=== PATIENT | female | born 1960 | race Caucasian/White ===

== ENCOUNTER → 2017-07-19 | Outpatient (CLI) | payer BC ==
--- NOTE | 2017-07-19 13:05 | Diagnostic Imaging Report ---
INDICATION: Pneumonia. FINDINGS: The lungs are clear. The heart and vessels normal. There is no effusion or pneumothorax. IMPRESSION: No acute appearing abnormality. Dictated by: Dictated on workstation # [id number]
== END ==
LOC: RAD 12:20
PROVIDERS: ATTEND Family Medicine
DX: J18.9 Pneumonia, unspecified organism (principal)
CPT/HCPCS: 71046

== ENCOUNTER → 2019-01-07 | Outpatient (CLI) | payer BC | LOC: RAD 15:32 | PROVIDERS: ATTEND Family Medicine | DX: Z12.31 Encounter for screening mammogram for malignant neoplasm of breast (principal) | CPT/HCPCS: 77067 ==

== ENCOUNTER 2019-10-28 11:00 | Inpatient (IN) | payer BC ==
[~2019-10-28] VITALS: Ht 157.5 cm; Wt 99.9 kg
[2019-10-28 11:00] VITALS: BP 143/86
[~2019-10-28 11:00] MED LIST: ALPRAZolam 0.25 MG (XANAX) TAB PO PRN; BISACODYL 10 MG SUPP (DULCOLAX) PR PRN; CALCIUM CARBONATE 500 MG (TUMS) TAB.CHEW PO PRN; CIPR500T4 PO; DOCUSATE SODIUM 100 MG (COLACE) CAP PO PRN; FLEET ENEMA ADULT 1 EA BTL PR PRN; LACTULOSE SYRUP 10GM/15ML (ENULOSE) 30ML UDC PO PRN; LOPERAMIDE 2 MG (IMODIUM) TABLET PO PRN; MELATONIN 3 MG TABLET PO PRN; ONDANSETRON 4 MG (ZOFRAN) ORAL DISSOLVE TAB PO PRN; ONDANSETRON 4 MG/2 ML (SDV) Z0FRAN IV PRN; diphenhydrAMINE 25 MG TAB (BENADRYL) PO PRN; guaiFENesin/CODEINE (ROBITUSSIN AC) 10ML UDC PO PRN
--- NOTE | 2019-10-28 11:00 | NUR ---
f pt name] admitted to room 224-1, with an admitting diagnosis of critical illness myopathy, on 10/28/19 from rm 421 via wheelchair, accompanied by staff.YELENA ROLLINS introduced to surroundings, call light, bed controls, phone, TV, temperature control, lights, meal times, smoking policy, visitor policy, side rail policy, bathrooms and showers. Patient Rights given to patient in the handbook.YELENA ROLLINS verbalizes understanding that [facility] is not responsible for the loss or damage to any personal effects or valuables that are kept in the patients posession during their hospitalization. The Patient's Care Plans were discussed with the patient as well as protocols for interdisciplinary Discharge Planning. YELENA ROLLINS verbalizes understanding of Interdisciplinary Patient Education. Patient and/or family were informed about the Rapid Response Team and its purpose. Patient received Patient Rights Booklet, which includes Privacy Act Statement and Data Collection Information Summary.
[2019-10-28] MEDS ORDERED: ACETAMINOPHEN 650 MG SUPP (TYLENOL) PR PRN (11:45)
[2019-10-28] MEDS ORDERED: DIPHENOXYLATE/ATROPINE 2.5MG/0.025MG (LOMOTIL) TAB PO PRN (11:45)
[2019-10-28] MEDS ORDERED: polyethylene glycoL POWDER 17 GM (MIRALAX) PACK PO PRN (11:45)
[2019-10-28] MEDS ORDERED: PATIENT MAY USE OWN MEDS, ALL PO SCH (11:45)
[2019-10-28] MEDS ORDERED: BISACODYL 10 MG SUPP (DULCOLAX) PR PRN (11:45)
[2019-10-28] MEDS ORDERED: diphenhydrAMINE 25 MG TAB (BENADRYL) PO PRN (11:45)
[2019-10-28] MEDS ORDERED: BENZONATATE 100 MG (TESSALON) CAPSULE PO PRN (11:45)
[2019-10-28] MEDS ORDERED: ANTACID SUSP 30 ML UDC (MYLANTA) PO PRN (11:45)
[2019-10-28] MEDS ORDERED: HYDROcodone/APAP 5 MG/325 MG (LORTAB) TAB PO PRN (11:45)
[2019-10-28] MEDS: DOCUSATE SODIUM 100 MG (COLACE) CAP PO SCH ×2 (12:24→22:11)
[2019-10-28] MEDS: polyethylene glycoL POWDER 17 GM (MIRALAX) PACK PO SCH ×2 (12:25→22:11)
[2019-10-28] MEDS: SENNA W/DOCUSATE (SENOKOT S) TABLET PO SCH ×2 (12:25→22:11)
--- NOTE | 2019-10-28 13:05 | PM&R Post Admission Assessment ---
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 Patient was placed on appropriate treatment with Azithromycin and Hydroxychloroquine as recommended by ID who was involved in the case from the [facility] dept. PPE maintained during the entire course. Patient worsened and required more O2 and placed on Vapotherm and biPAP and ultimately required intubation on 10/16/19 performed by anesthesia in an uncomplicated manner. Patient did have an episode of bradycardia which Cardiology was consulted and had no other events. She was treated for secondary bacterial infection PNA and yeast on endotracheal specimen and completed COVID-19 treatment. Patient was extubated in an uncomplicated manner on 10/26/19 and was deemed stable for IRF admittance. Patient is having generalized weakness and very slow to recover. BM are regular and she is able to eat a small amount at her meals without dysphagia but she must pace herself. No skin breakdown reported. Catheter will be removed today and Tely will be DC also since she has not had bradycardia for several days. 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 PM&R Allergy/Meds/Data Review Allergies Coded Allergies: cefotaxime (Verified Allergy, Intermediate, HIVES, 10/14/15) Home Medications No Active Prescriptions or Reported Meds Current Medications Current Medications No home meds Review of Systems Constitutional: see HPI, dizziness, malaise, weakness EENTM: no symptoms reported, mouth pain Respiratory: dyspnea on exertion, short of breath, wheezing Cardiovascular: no symptoms reported Gastrointestinal: no symptoms reported Musculoskeletal: back pain, joint pain, muscle pain, muscle stiffness, muscle cramps Skin: no symptoms reported Psychiatric/Neurological: Anxiety, Depressed, Emotional Problems All Other Systems Reviewed Negative Unless Noted: Yes Physical Exam Physical Exam Vital Signs Capillary Refill : Height, Weight, BMI Height: 5'2.00" Weight: 240lbs. 0.0oz. [id number]; 43.73 BMI Method: General Appearance: No Apparent Distress, WD/WN, Chronically ill, Obese Eyes: Bilateral Eye Normal Inspection, Bilateral Eye PERRL HEENT: PERRL/EOMI, Normal ENT Inspection, Pharynx Normal Neck: Full Range of Motion, Normal Inspection, Non Tender, Supple, Carotid Bruit Respiratory: Chest Non Tender, Lungs Clear, No Accessory Muscle Use, No Respiratory Distress, Decreased Breath Sounds Cardiovascular: Regular Rate, Rhythm, No Edema, No Gallop, No JVD, No Murmur, Normal Peripheral Pulses Gastrointestinal: Normal Bowel Sounds, No Organomegaly, No Pulsatile Mass, Non Tender, Soft Back: Normal Inspection, No CVA Tenderness, No Vertebral Tenderness Extremity: Normal Capillary Refill, Normal Inspection, Normal Range of Motion, Non Tender, No Calf Tenderness, No Pedal Edema Neurologic/Psychiatric: Alert, Oriented x3, No Motor/Sensory Deficits, 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 Norm as Tested, Abnormal Gait, Depressed Affect, Motor Weakness (generalized weakness all extremities 3/5) Skin: Normal Color, Warm/Dry Lymphatic: No Adenopathy PM&R Medical Assessment & Plan REHAB/MEDICAL ASSESSMENT AND PLAN: REHAB IMPAIRMENT GROUP: 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 and VDRF for 10 days ETIOLOGIC DIAGNOSIS: 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 and VDRF for 10 days The comorbidities that impact the patients function and/or functional outcome by: severe VDRF required aggressive care from 10/13/19 and will be monitored closely, depressed affect REHAB PLAN: The patient is being admitted to our comprehensive inpatient rehabilitation facility and can tolerate the intensity of service consisting of at least: 180 minutes of therapy a day, 5 out of 7 days a week Rehab treatment will consist of: PT OT ST will focus on regaining ADL's and stamina and energy conservation in 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 The patient has potential to make improvement and is in need of at least two of the following multidisciplinary therapies including but not limited to physical, occupational, speech, and prosthetics and orthotics. Additionally the patient will need services from respiratory, nutritional services, wound care, psychology, etc. (Customize this to each patient). Given the patients complex condition and risk of further medical complications, rehabilitation services cannot be safely or effectively provided at a lower level of care such as a halfway facility. BARRIERS TO DISCHARGE: Severe myopathy from near fatal viral infection ARDS ESTIMATED LOS: 21 days DISPOSITION: Home RELEVANT CHANGES SINCE PREADMISSION SCREENING: I have compared the patients medical and functional status at the time of the preadmission screening and there are: no changes PROGNOSIS: improved REHABILITATION GOALS: 1. 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 By signing this document, I acknowledge that I have personally performed a full physical examination on this patient within 24 hours of admission to this inpatient rehabilitation facility and have determined the patient to be able to tolerate the above course of treatment at an intensive level for a reasonable period of time. I will be completing a detailed individualized Plan of Care for this patient by day #4 of the patients stay based upon the Preadmission Screen, the Post-Admission Evaluation, and the therapy evaluations. Admission Dx/Comorbidities: (1) Myopathy ICD Codes: G72.9 - Myopathy, unspecified (2) Coronavirus infection Status: Acute ICD Codes: B34.2 - Coronavirus infection, unspecified Copy Copies To 1: REGAN GREGORIO MD Assessment/Plan Assessment and Plan Assess & Plan/Chief Complaint Assessment: Critical illness myopathy Coronavirus s/p treatment and out of isolation s/p VDRF Lovenox for DVT PPx Plan: IRF protocol Monitor labs DC catheter DC JASE Lyons DO Oct 28, 2019 13:05
--- NOTE | 2019-10-28 13:41 | Physical Therapy Evaluation ---
PT Evaluation-General Medical Diagnosis Admission Date Oct 28, 2019 at 11:00 Medical Diagnosis: COVID-19 with hypoxia Onset Date: Oct 06, 2019 Therapy Diagnosis Therapy Diagnosis: impaired mobility, strength, endurance Height/Weight Height (Feet): 5 Height (Inches): 2.00 Weight (Pounds): 240 Weight (Ounces): 0.0 Referral Physician: Gayla Abdalla DO Reason for Referral: Evaluation/Treatment Medical History Additional Medical History obesity Current History ER with fever and myalgia 10/04/19 and (+) Covid 19 10/07/19 (has been hospitalized 10/11/19) extubated 10/26/19. Reviewed History: Yes Social History Home: Multilevel Current Living Status: Spouse Entry Into Home: Stairs With Railing PT Steps Into Home: 2 Prior Prior Level of Function SCALE: Activities may be completed with or without assistive devices. 3-Zotdjtaccs-ziwolzj completes the activity by him/herself with no assistance from a helper. 5-Set-up or Clean-up Assistance-helper sets up or cleans up; patient completes activity. [place] assists only prior to or following the activity. 4-Supervision or Touching Assistance-helper provides verbal cues and/or touching/steadying and/or contact guard assistance as patient completes activity. Assistance may be provided throughout the activity or intermittently. 3-Partial/Moderate Assistance-helper does LESS THAN HALF the effort. [place] lifts, holds or supports trunk or limbs, but provides less than half the effort. 2-Substantial/Maximal Assistance-helper does MORE THAN HALF the effort. [place] lifts or holds trunk or limbs and provides more than half the effort. 6-Noqxiqugx-zzjsjl does ALL the effort. Patient does none of the effort to complete the activity. Or, the assistance of 2 or more helpers is required for the patient to complete the activity. If activity was not attempted, code reason: 7-Patient Refused. 9-Not Applicable-not attempted and the patient did not perform the activity b efore the current illness, exacerbation or injury. 10-Not Attempted due to Environmental Limitations-(lack of equipment, weather restraints, etc.). 88-Not Attempted due to Medical Conditions or Safety Concerns. Bed Mobility: 6 Transfers (B,C,W/C): 6 Gait: 6 Stairs: 6 Indoor Mobility (Ambulation): Independent Stairs: Independent PT Evaluation-Current Subjective Patient in bed pre tx, agrees to PT, has no complaints of pain. Will be co- treating with OT after eval due to poor patient mobility, strength, endurance, risk of falls with activity, knee buckling, the need to coordinate UE and LE during activity. Pt/Family Goals "to get stronger" Objective Patient Orientation: Person, Place, Situation Attachments: Fisher Catheter ROM/Strength ROM Lower Extremities WNL Strength Lower Extremities 3/5 gross BLE except for dorsiflexion which is 1/5 bilaterally. Sensory Hearing: Functional Sensation Right Lower Extremit: Intact Sensation Left Lower Extremity: Intact Transfers Roll Left to Right (QC): 2 Sit to Lying (QC): 2 Lying to Sitting/Side of Bed(Q: 2 Sit to Stand (QC): 3 Chair/Goc-wh-Xupqn Xfer(QC): 3 Toilet Transfer (QC): 3 Car Transfer (QC): 2 Patient performed bed mobility with max assist, supine <-> sit max assist, sit <-> stand mod assist, stand pivot mod assist, car transfer max assist. Patient is able to use arms as well as legs when standing, needs cues for positioning and safety. Gait Does the Patient Walk?: No and Walking Goal IS indicated Mode of Locomotion: Wheelchair Anticipated Mode of Locomotion: Walk Walk 10 feet (QC): 88 Walk 50 ft with 2 Turns(QC): 88 Walk 150 ft (QC): 88 Walking 10ft/uneven surface-QC: 88 Wheelchair Training Does the Pt Use a Wheelchair?: Yes Wheel 50 ft with 2 turns (QC): 1 Wheel 150 ft (QC): 1 Type of Wheelchair: Manual Stairs 1 Step (curb) (QC): 88 4 Steps (QC): 88 12 Steps (QC): 88 Balance Sitting Static: Fair Sitting Dynamic: Fair Standing Static: Poor Standing Dynamic: Poor Picking up an Object (QC): 88 Treatment Enter room, sat patient on side of bed with max assist, transferred to , taken to rehab, transferred to commode, stood and cleaned and sat to rest and then transferred to recliner. Then stood x2 with mod assist and the use of a rolling walker, patient was able to stand for about 20 sec each time, she also had to stand during cleaning. Assessment/Needs Patient has weak UE and LE, impaired mobility and balance and endurance. She needs safety cues and positioning during transfers. Rehab Potential: Fair PT Short Term Goals Short Term Goals Time Frame: Nov 04, 2019 Roll Left & Right: 3 Sit to lyin Lying to sitting on side of be: 3 Sit to stand: 3 Chair/pyp-wn-qansm transfer: 3 Walk 10 feet: 3 PT Halfway Goals [place] Operator Goals PT Halfway Goals Time Frame: November 18, 2019 Roll Left & Right (QC): 4 Sit to Lying (QC): 4 Lying-Sitting on Side/Bed(QC): 4 Sit to Stand (QC): 4 Chair/Rrq-bn-Tnkrh Xfer(QC): 4 Toilet Transfer (QC): 4 Car Transfer (QC): 4 Does the Patient Walk: Yes Walk 10 feet (QC): 4 Walk 50ft with 2 Turns (QC): 4 Walk 150 ft (QC): 88 Walking 10ft on Uneven Surface: 88 1 Step (curb) (QC): 3 4 Steps (QC): 88 12 Steps (QC): 88 Picking up an Object (QC): 88 Wheel 50 feet with 2 turns (QC: 6 Wheel 150 feet: 6 PT Plan Problem List Problem List: Activity Tolerance, Functional Strength, Safety, Balance, Gait, Transfer, Bed Mobility, ROM Treatment/Plan Treatment Plan: Continue Plan of Care Treatment Plan: Bed Mobility, Education, Functional Activity Shalonda, Functional Strength, Group Therapy, Gait, Safety, Therapeutic Exercise, Transfers Treatment Duration: November 18, 2019 Frequency: Modified Program (IRF) Estimated Hrs Per Day: 1 hour per day Patient and/or Family Agrees t: Yes Safety Risks/Education Patient Education: Transfer Techniques, Correct Positioning, Safety Issues Teaching Recipient: Patient Teaching Methods: Demonstration, Discussion Response to Teaching: Reinforcement Needed Discharge Recommendations Plan Patient will perform bed mobility and transfer training, balance and endurance training, functional strengthening, stair training, gait training, and education, to improve functional mobility and independence at home. Therapy Discharge Recommendati: Home & Family Time/GCodes Time In: 1100 Time Out: 1200 Total Billed Treatment Time: 50 Total Billed Treatment 1 visit EVM 10' FA 40' (only charge 2 units) PT eval from [id number], OT eval from [id number], co-treat from [id number]. PT performed bed mobility and transfers, standing, assist with positioning and balance during adl's and going to the bathroom. OT performed ADL's, cleaning, assist with transfers and bed mobility. SHANNON WESTFALL PT Oct 28, 2019 13:41
--- NOTE | 2019-10-28 13:56 | Physical Therapy Daily Note ---
PT Daily Note-Current Subjective Patient in recliner pre tx, agrees to PT, has no complaints of pain. Will be co-treating with OT due to poor patient mobility, strength, endurance, fall risk during activity, the need to coordinate UE and LE during activity. Appearance Patient in bed post tx with nurse call, phone, tray, all needs met. Mental Status Patient Orientation: Person, Place, Situation Transfers SCALE: Activities may be completed with or without assistive devices. 9-Tacxtvvpzh-pmnihjq completes the activity by him/herself with no assistance from a helper. 5-Set-up or Clean-up Assistance-helper sets up or cleans up; patient completes activity. [place] assists only prior to or following the activity. 4-Supervision or Touching Assistance-helper provides verbal cues and/or touching/steadying and/or contact guard assistance as patient completes activity. Assistance may be provided throughout the activity or intermittently. 3-Partial/Moderate Assistance-helper does LESS THAN HALF the effort. [place] lifts, holds or supports trunk or limbs, but provides less than half the effort. 2-Substantial/Maximal Assistance-helper does MORE THAN HALF the effort. [place] lifts or holds trunk or limbs and provides more than half the effort. 5-Vctqqvaik-hynicv does ALL the effort. Patient does none of the effort to complete the activity. Or, the assistance of 2 or more helpers is required for the patient to complete the activity. If activity was not attempted, code reason: 7-Patient Refused. 9-Not Applicable-not attempted and the patient did not perform the activity before the current illness, exacerbation or injury. 10-Not Attempted due to Environmental Limitations-(lack of equipment, weather restraints, etc.). 88-Not Attempted due to Medical Conditions or Safety Concerns. Roll Left & Right (QC): 2 Sit to Lying (QC): 2 Sit to Stand (QC): 3 Chair/Jka-kg-Cfjyo Xfer(QC): 3 Toilet Transfer (QC): 3 Patient performed a stand pivot transfer from recliner to commode, then stood for cleaning and sat back down, transferred from commode to bed using a rolling walker with mod assist and then layed back down in the bed. Treatments transfers, bed mobility, toileting. PT performed bed mobility and transfers and standing during cleaning. OT assisted with transfers and performed toileting and cleaning. 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 Home Goals PT Care Home Goals Time Frame: November 18, 2019 Roll Left & Right (QC): 4 Sit to Lying (QC): 4 Lying-Sitting on Side/Bed(QC): 4 Sit to Stand (QC): 4 Chair/Opa-nz-Ukzxk Xfer(QC): 4 Toilet Transfer (QC): 4 Car Transfer (QC): 4 Does the Patient Walk: Yes Walk 10 feet (QC): 4 Walk 50ft with 2 Turns (QC): 4 Walk 150 ft (QC): 88 Walking 10ft on Uneven Surface: 88 1 Step (curb) (QC): 3 4 Steps (QC): 88 12 Steps (QC): 88 Picking up an Object (QC): 88 Wheel 50 feet with 2 turns (QC: 6 Wheel 150 feet: 6 PT Plan Problem List Problem List: Activity Tolerance, Functional Strength, Safety, Balance, Gait, Transfer, Bed Mobility, ROM Treatment/Plan Treatment Plan: Continue Plan of Care Treatment Plan: Bed Mobility, Education, Functional Activity [place], Functional Strength, Group Therapy, Gait, Safety, Therapeutic Exercise, Transfers Treatment Duration: November 18, 2019 Frequency: Modified Program (IRF) Estimated Hrs Per Day: 1 hour per day Patient and/or Family Agrees t: Yes Safety Risks/Education Patient Education: Transfer Techniques, Correct Positioning, Safety Issues Teaching Recipient: Patient Teaching Methods: Demonstration, Discussion Response to Teaching: Reinforcement Needed Time/GCodes Time In: 1305 Time Out: 1325 Total Billed Treatment Time: 20 Total Billed Treatment 1 visit FA 20' Co-treated with OT for 20 min. SHANNON WESTFALL PT Oct 28, 2019 13:56
--- NOTE | 2019-10-28 14:18 | Occupational Therapy Eval ---
OT Evaluation-General/PLF Medical Diagnosis Admission Date Oct 28, 2019 at 11:00 Medical Diagnosis: COVID-19 with hypoxia Onset Date: Oct 06, 2019 Therapy Diagnosis Therapy Diagnosis: impaired self care skills Height/Weight Height (Feet): 5 Height (Inches): 2.00 Weight (Pounds): 240 Weight (Ounces): 0.0 Referral Physician: Gayla Abdalla DO Medical History Current History Pt COVID +, intubated 10/15, fever resolved 10/22, extubated 10/25 Social History Home: [facility] Current Living Status: Spouse Entry Into Home: Stairs With Railing Steps Into Home: 2 ADL-Prior Level of Function SCALE: Activities may be completed with or without assistive devices. 4-Xfdjsiegxx-fbswlft completes the activity by him/herself with no assistance from a helper. 5-Set-up or Clean-up Assistance-helper sets up or cleans up; patient completes activity. [place] assists only prior to or following the activity. 4-Supervision or Touching Assistance-helper provides verbal cues and/or touching/steadying and/or contact guard assistance as patient completes activity. Assistance may be provided throughout the activity or intermittently. 3-Partial/Moderate Assistance-helper does LESS THAN HALF the effort. [place] lifts, holds or supports trunk or limbs, but provides less than half the effort. 2-Substantial/Maximal Assistance-helper does MORE THAN HALF the effort. [place] lifts or holds trunk or limbs and provides more than half the effort. 9-Efnftvope-wujnru does ALL the effort. Patient does none of the effort to complete the activity. Or, the assistance of 2 or more helpers is required for the patient to complete the activity. If activity was not attempted, code reason: 7-Patient Refused. 9-Not Applicable-not attempted and the patient did not perform the activity before the current illness, exacerbation or injury. 10-Not Attempted due to Environmental Limitations-(lack of equipment, weather restraints, etc.). 88-Not Attempted due to Medical Conditions or Safety Concerns. ADL PLOF Comments Pt reports being independent with self care and mobility prior to admission. 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 Self Care: Independent Functional Cognition: Independent DME/Equipment: Shower, Tub/Shower Drive Self: Yes OT Current Status Subjective Pt in bed, agreeable to therapy. Reports "some discomfort" in legs, but doesn't rate. Mental Status/Objective Patient Orientation: Person Attachments: Fisher Catheter Current Hand Dominance: Right Upper Extremity ROM Impaired bilaterally. Shoulder flexion to ~25 degrees. Elbow ROM to half range. Upper Extremity Coordination decreased bilaterally Upper Extremity Strength Grossly 2/5 Edema: Edema present in bilateral UE ADL-Treatment ADL-Current Co-treat with PT secondary to impaired mobility, strength, and activity tolerance requiring skill of two therapists. Pt supine to sit with max assist. Total assist to don socks. Stand pivot transfer to w/c. Transported to ARU via w/c. Pt participated in stand pivot transfer to [facility]. Pt requires total assist for toileting hygiene. Changed soiled gown with max assist. Pt states she alre michael had a sponge bath this morning. Pt participated in grooming tasks while seated in chair. Pt unable to reach up to wash face. With elbow supported, pt able to hold washcloth in right hand and partially wash face. Oral care completed with max assist. Pt completed sit to stand x2 trials to increase strength for transfers. Cues for UE positioning and safety. Pt fatigues quickly with activity, requires rest breaks throughout treatment. Pt sitting in chair with needs met after session. OT focusing on ADLs, UE management, and safety. PT focusing on transfers, mobility, and balance. Eating (QC): 10 Oral Hygiene (QC): 2 Shower/Bathe Self (QC): 7 (pt states she already completed bathing this morning ) Upper Body Dressing (QC): 2 Lower Body Dressing (QC): 10 On/Off Footwear (QC): 1 Toileting Hygiene (QC): 1 Education OT Patient Education: Rehab process Teaching Recipient: Patient Teaching Methods: Discussion Response to Teaching: Verbalize Understanding OT Short Term Goals Short Term Goals Time Frame: Nov 04, 2019 Oral hygiene: 3 Toileting hygiene: 3 Upper body dressin Lower body dressin OT Usp Goals Usp Goals Time Frame: November 18, 2019 Eating (QC): 6 Oral Hygiene (QC): 6 Toileting Hygiene (QC): 5 Shower/Bathe Self (QC): 4 Upper Body Dressing (QC): 5 Lower Body Dressing (QC): 5 On/Off Footwear (QC): 5 Additional Goals: 1-Demonstrate ADL Tasks, 2-Verbalize Understanding, 3- ImproveStrength/Shalonda 1=Demonstrate adherence to instructed precautions during ADL tasks. 2=Patient will verbalize/demonstrate understanding of assistive devices /modifications for ADL. 3=Patient will improve strength/tolerance for activity to enable patient to perform ADL's. OT Education/Plan Problem List/Assessment Assessment: Decreased Activ Tolerance, Decreased UE Strength, Dependent Transfers, Impaired Coordination, Impaired Funct Balance, Impaired I ADL's, Impaired Self-Care Skills Pt demonstrates impaired mobility, strength, activity tolerance, ADL functioning, and safety. Pt to benefit from skilled OT intervention for ADL training, transfers, strengthening, and home safety education to increase level of independence and allow safe discharge plan. Discharge Recommendations Plan/Recommendations: Continue POC Treatment Plan/Plan of Care Treatment,Training & Education: Yes Patient would benefit from OT for education, treatment and training to promote independence in ADL's, mobility, safety and/or upper extremity function for ADL's. Plan of Care: ADL Retraining, Functional Mobility, Group Exercise/Act as Ind, UE Funct Exercise/Act, UE Neuromus Re-Ed/Coord Treatment Duration: November 18, 2019 Frequency: Modified Program (IRF) Rehab Potential: Fair Time/GCodes Start Time: 11:10 Stop Time: 12:00 Total Time Billed (hr/min): 50 Billed Treatment Time 1 visit, EVH(10minutes), ADLx2(40minutes), OT eval [id number], Co-treat with PT [id number] URIEL REILLY OT Oct 28, 2019 14:18
--- NOTE | 2019-10-28 14:36 | Occupational Ther Daily Note ---
OT Current Status-Daily Note Subjective Pt sitting in chair, requests to use BSC. ADL-Treatment Stand pivot transfer to BSC. Pt requires total assist for toileting hygiene and to don Depends. Pt stood with assist for balance during hygiene and pant hike. Transfer to EOB using FWW, skilled cues for technique and safety. Sit to supine with assist for trunk and LE. Pt resting in bed with needs met after session. Co-treat with PT secondary to impaired mobility, strength, and activity tolerance, requiring skill of two therapists. OT focusing on UE placement and ADLs, PT focusing on transfers and LE management. Therapy Code Descriptions/Definitions Functional [place] Measure: 0=Not Assessed/NA 4=Minimal Assistance 1=Total Assistance 5=Supervision or Setup 2=Maximal Assistance 6=Modified [place] 3=Moderate Assistance 7=Complete IndependenceSCALE: Activities may be completed with or without assistive devices. 4-Bywyxyyfms-fxqlpsd completes the activity by him/herself with no assistance from a helper. 5-Set-up or Clean-up Assistance-helper sets up or cleans up; patient completes activity. [place] assists only prior to or following the activity. 4-Supervision or Touching Assistance-helper provides verbal cues and/or touching/steadying and/or contact guard assistance as patient completes activity. Assistance may be provided throughout the activity or intermittently. 3-Partial/Moderate Assistance-helper does LESS THAN HALF the effort. [place] lifts, holds or supports trunk or limbs, but provides less than half the effort. 2-Substantial/Maximal Assistance-helper does MORE THAN HALF the effort. [place] l ifts or holds trunk or limbs and provides more than half the effort. 6-Hjvsszkxb-mjzbvi does ALL the effort. Patient does none of the effort to complete the activity. Or, the assistance of 2 or more helpers is required for the patient to complete the activity. If activity was not attempted, code reason: 7-Patient Refused. 9-Not Applicable-not attempted and the patient did not perform the activity before the current illness, exacerbation or injury. 10-Not Attempted due to Environmental Limitations-(lack of equipment, weather restraints, etc.). 88-Not Attempted due to Medical Conditions or Safety Concerns. Lower Body Dressing (QC): 1 Toileting Hygiene (QC): 1 OT Short Term Goals Short Term Goals Time Frame: Nov 04, 2019 Oral hygiene: 3 Toileting hygiene: 3 Upper body dressin Lower body dressin OT Prison Goals Prison Goals Time Frame: November 18, 2019 Eating (QC): 6 Oral Hygiene (QC): 6 Toileting Hygiene (QC): 5 Shower/Bathe Self (QC): 4 Upper Body Dressing (QC): 5 Lower Body Dressing (QC): 5 On/Off Footwear (QC): 5 Additional Goals: 1-Demonstrate ADL Tasks, 2-Verbalize Understanding, 3-ImproveStrength/Shalonda 1=Demonstrate adherence to instructed precautions during ADL tasks. 2=Patient will verbalize/demonstrate understanding of assistive devices/modifications for ADL. 3=Patient will improve strength/tolerance for activity to enable patient to perform ADL's. OT Education/Plan Discharge Recommendations Plan/Recommendations: Continue POC Treatment Plan/Plan of Care Patient would benefit from OT for education, treatment and training to promote i ndependence in ADL's, mobility, safety and/or upper extremity function for ADL's. Plan of Care: ADL Retraining, Functional Mobility, Group Exercise/Act as Ind, UE Funct Exercise/Act, UE Neuromus Re-Ed/Coord Treatment Duration: November 18, 2019 Frequency: Modified Program (IRF) Rehab Potential: Fair Time/GCodes Start Time: 13:05 Stop Time: 13:25 Total Time Billed (hr/min): 20 Billed Treatment Time 1 visit, ADL(20minutes) Co-treat with PT URIEL REILLY OT Oct 28, 2019 14:36
--- NOTE | 2019-10-28 14:53 | ST Cognitive Linguistic Eval ---
Speech Evaluation-General Medical Diagnosis COVID-19 with hypoxia Onset Date: Oct 06, 2019 Therapy Diagnosis Therapy Diagnosis: Cognitive-communication Referral Referring Physician: Dr. Abdalla Medical History Reviewed History: Yes Social History Current Living Status: Spouse Speech PLF-Current Status Prior Level of Function Patient lived at home with her spouse where she was independent until her illness. 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 Subjective Patient was compliant with the cognitive assessment. Language Eval: Auditory Comprehends Simple Yes/No Ques: Functional Indent/Objects Multiple Marie: Functional Ident/Pics in Multiple Marie: Functional Follows 1-Step Commands: Functional Follows Complex Directions: Functional Follows General Conversations: Mild Language Eval: Verbal Language Completes Spontaneous Greeting: Functional Produces Auto, Serial Info: Functional Imitates Simple Words/Phrases: Functional Word Finding: Mild Requests Basic Needs: Functional States Basic Personal Info: Functional Expresses Complex Ideas: Mild Objective Cognitive Domain Attention: Mild Memory: Mild Problem Solving: Mild Executive Functions: Mild Visuospatial Skills: WNL Composite Severity Rating: Mild Clock Drawing Severity Rating: Mild Objective Formal/Standardized Tests [facility] Status ([facility]) Results 24/30, Mild Neurocognitive Disorder range of function Oral Motor/Speech Production Patient's speech is slow, however she is intelligible Impression Patient is a pleasant 59 year old female who has been hospitalized for COVID-19 for the past few weeks. She was given the SLUMS at bedside with a score of 24/30 obtained. This score falls in the MNCD range of function with areas of word finding, memory and executive functions deficits noted. Patient will receive skilled ST to focus on these areas as well as safety awareness in order for her to return home safely. Speech Patient Assess Expression of Ideas/Wants: Frequently (2) Understanding Verbal Content: Sometimes Understands(2) Brief Interview-Mental Status: Yes Repetition of Three Words: Three (3) Temporal Orientation: Year: Correct (3) Temporal Orientation: Month: Missed by 6 days-1 month (1) Temporal Orientation: Day: Incorrect or No Answer(0) Recall : Wear to say "Sock": Yes,after cueing (1) Recall : Color: No, could not recall (0) Recall : Bed: No, could not recall (0) Memory/Recall Ability: That he or she is in a hsp/hsp unit Speech Short Term Goals Short Term Goals Short Term Goals 1) Patient will complete memory tasks related to her daily needs at 90% or greater with minimal cues. 2) Patient will complete executive function tasks related to her daily needs at 90% or greater with minimal cues. 3) Patient will complete word finding tasks related to her daily needs at 90% or greater with minimal cues. 4) Patient will complete safety awareness tasks related to her daily needs at 90% or greater with minimal cues. Speech Recreation Establishment Manager Goals Recreation Establishment Manager Goals Patient will improve cognitive-communication necessary for safety and daily living tasks with minimal assist. Speech-Plan Patient/Family Goals Patient/Family Goals: Patient plans on returning to her home where she lives with her upon hospital discharge. Treatment Plan Speech Therapy Treatment Plan: Continue Plan of Care Treatment Duration: November 13, 2019 Frequency: 5 times per week Estimated Hrs Per Day: .25 hour per day Rehab Potential: Fair Barriers to Learning: Patient's recent medical status Pt/Family Agrees to Plan: Yes Safety Risks/Education Teaching Recipient: Patient Teaching Methods: Discussion Response to Teaching: Verbalize Understanding Education Topics Provided: Safety within her room, use of the call light and communication of wants/needs Time Speech Therapy Time In: 14:30 Speech Therapy Time Out: 14:45 Total Billed Time: 15 Billed Treatment Time 1, SPSNDCOMP CECILY Newell Oct 28, 2019 14:53
--- NOTE | 2019-10-28 15:21 | NUR ---
"RD ASSESSMENT PMHx: no significant PMH; recent diagnosis of COVID-19 PT INTERACTION: Pt was awake and pleasant during consult for MST score. Pt states current appetite is so-so. Note PO intake of 25% x1meal, per chart review. Note pt had been in ICU and intubated/sedated for several days d/t COVID-19, per chart review. Pt states trying to follow a ketogenic diet at home, and has no issues with chewing/swallowing food. Pt states some recent issues with nausea/vomiting. Pt states no issues with constipation/diarrhea and that her last BM was 10/27. Note pt currently on bowel regimen of Colace BID; Senna BID; and Miralax BID, per chart review. Pt states unsure of recent wt changes. Note no significant wt changes while pt was in ICU, per chart review. Upon visual assessment, pt appears to be adequately nourished with BMI of 44.0. Though PO intake is poor, given wt hx and visual assessment, pt does not meet criteria for malnutrition at this time, per ASPEN guidelines. ABNORMAL NUTRITION-RELATED LAB VALUES LOW: Pro 5.4; alb 2.9 HIGH: Cl 108; ALT 56 Est. kcal needs: [id number] kcal | 15-18 kcal/kg Est. Pro needs: 87-108 g Pro | 0.8-1.0 g Pro/kg PES STATEMENT: Inadequate oral intake (NI-2.1) related to loss of appetite | nausea | vomiting as evidenced by pt interview | PO intake 25% x1meal INTERVENTION: Note pt has no current diet order. Would recommend advancing to Regular diet, when medically able and as tolerated. Continue with current supplementation order of Ensure Enlive (vary) with meals. Provides 350 kcal and 13 g Pro per serving. Will continue to follow and reassess as pt needs, intake, and status change. MONITOR/EVALUATE: PO Intake; Plan of Care; Hydration Status; Weight Status; Lab Values Vivek Syed, MS, RD, LD"
--- NOTE | 2019-10-28 15:52 | NUR ---
PT TRANSFERRED TO IRF FROM THR 4TH FLOOR- I HAD COMPLETED THE MED REC WHEN SHE WAS ON THE 4TH FLOOR. THE ONLY THING SHE WAS TAKING AT THAT TIME WAS AN ANTIBIOTIC AND THAT HAS BEEN DISCONTINUED. THERE IS NO ACTION REQUIRED AT THIS TIME
[2019-10-28] MEDS: ASCORBIC ACID (VIT C) 500 MG TABLET PO SCH (16:52)
[2019-10-28 17:25] VITALS: BP 144/83
--- NOTE | 2019-10-28 19:13 | NUR ---
bedside report received from DILAN JAFFE, assume care of pt
[2019-10-28] MEDS: ENOXAPARIN 40 MG/0.4 ML (LOVENOX) SYR SC SCH (22:09)
--- NOTE | 2019-10-28 22:09 | NUR ---
pt refused Colace, miralax & Senokot, stated had loose stools today
--- NOTE | 2019-10-29 00:27 | NUR ---
pt requested Benadryl 25mg po
[2019-10-29 05:45] VITALS: BP 167/78
[2019-10-29 06:03] LABS: BASOPHILS % (AUTO) 0 % (0-10); EOSINOPHILS # (AUTO) 0.1 10^3/uL (0.0-0.3); EOSINOPHILS % (AUTO) 1 % (0-10); HEMATOCRIT 37 % (35-52); HEMOGLOBIN 12.6 G/DL (11.5-16.0); LYMPHOCYTES # (AUTO) 1.9 X 10^3 (1.0-4.0); LYMPHOCYTES % (AUTO) 24 % (12-44); MEAN CORPUSCULAR HEMOGLOBIN 29 PG (25-34); MEAN CORPUSCULAR HGB CONC 34 G/DL (32-36); MEAN CORPUSCULAR VOLUME 87 FL (80-99); MEAN PLATELET VOLUME 10.9 FL (7.4-10.4); MONOCYTES % (AUTO) 13 % (0-12); NEUTROPHILS # (AUTO) 4.8 X 10^3 (1.8-7.8); NEUTROPHILS % (AUTO) 62 % (42-75); PLATELET COUNT 276 10^3/uL (130-400); RED CELL DISTRIBUTION WIDTH 15.1 % (10.0-14.5); WHITE BLOOD COUNT 7.7 10^3/uL (4.3-11.0)
[2019-10-29 06:13] LABS: ALBUMIN 3.2 GM/DL (3.2-4.5); CHLORIDE 109 MMOL/L (98-107); POTASSIUM 3.6 MMOL/L (3.6-5.0); SODIUM 141 MMOL/L (135-145)
[2019-10-29 06:14] LABS: CALCIUM 9.6 MG/DL (8.5-10.1)
[2019-10-29 06:15] LABS: GLUCOSE 98 MG/DL (70-105)
[2019-10-29 06:16] LABS: TOTAL PROTEIN 5.8 GM/DL (6.4-8.2)
[2019-10-29 06:17] LABS: CARBON DIOXIDE 22 MMOL/L (21-32)
[2019-10-29 06:19] LABS: ALKALINE PHOSPHATASE 80 U/L (40-136); CREATININE SERUM 0.66 MG/DL (0.60-1.30); GFR ESTIMATED > 60
[2019-10-29 06:20] LABS: BUN/CREATININE RATIO 17
[2019-10-29 06:22] LABS: ALANINE AMINOTRANSFERASE 69 U/L (0-55)
[2019-10-29] MEDS: ASCORBIC ACID (VIT C) 500 MG TABLET PO SCH ×2 (06:38→17:16)
[2019-10-29] MEDS: ZINC SULFATE 220 MG CAPSULE PO SCH (08:36)
[2019-10-29] MEDS: fluCOnazole (DIFLUCAN) 100 MG TAB PO SCH (08:37)
[2019-10-29] MEDS: ENOXAPARIN 40 MG/0.4 ML (LOVENOX) SYR SC SCH ×2 (08:37→21:34)
[2019-10-29] MEDS: VITAMIN D3 25 MCG (1,000 UNITS) TABLET PO SCH (08:37)
[2019-10-29] MEDS: polyethylene glycoL POWDER 17 GM (MIRALAX) PACK PO SCH ×2 (08:37→21:41)
[2019-10-29] MEDS: DOCUSATE SODIUM 100 MG (COLACE) CAP PO SCH ×2 (08:37→21:41)
[2019-10-29] MEDS: SENNA W/DOCUSATE (SENOKOT S) TABLET PO SCH ×2 (08:37→21:41)
--- NOTE | 2019-10-29 10:04 | Individualized Plan of Care ---
Individualized Plan of Care Rehab Nursing IPOC Order Admission Date Oct 28, 2019 at 11:00 Current Orders Orders Admission Order(Inpt,Obs,Sdc) (10/27/19 21:43) Reza Encarnacion (10/27/19 21:43) Wool Merchant-Inpt Rehab Con (10/27/19 21:43) Rehab Nursing Orders-Ipoc (10/27/19 21:43) Physical Therapy Rehab Orders (10/27/19 21:43) Occupational Therapy Rehab Ord (10/27/19 21:43) Speech Therapy Rehab Orders (10/27/19 21:43) General/Regular (10/28/19 Breakfast) Precautions (Aru) (10/27/19 21:43) Rehab-Intensity Of Therapy (10/27/19 21:43) Initiate Admission Nursing Pro .admission (10/27/19 21:43) Alprazolam Tablet (Xanax Tablet) (10/27/19 21:45) Calcium Carbonate Chew Tablet (Antacid C (10/27/19 21:45) Diphenhydramine Tablet (Benadryl Tablet) (10/27/19 21:45) Docusate Sodium Capsule (Colace Capsule) (10/28/19 09:00) Docusate Sodium Capsule (Colace Capsule) (10/27/19 21:45) Bisacodyl Suppository (Dulcolax Supposit (10/27/19 21:45) Lactulose Oral Solution (Enulose Oral So (10/27/19 21:45) Na Phos/Na Biphos Enema (Fleet Enema Johny (10/27/19 21:45) Guaifenesin/Codeine Syrup (Robitussin Ac (10/27/19 21:45) Loperamide Tablet (Imodium Tablet) (10/27/19 21:45) Melatonin Tablet (Melatonin Tablet) (10/27/19 21:45) Polyethylene Glycol Powder Pkt (Miralax (10/28/19 09:00) Ondansetron Injection (Zofran Injectio (10/27/19 21:45) Ondansetron Oral Dissolve Tab (Zofran (10/27/19 21:45) Senna S Tablet (Senokot S Tablet) (10/28/19 09:00) Cbc With Automated Diff (10/29/19 06:00) Comprehensive Metabolic Panel (10/29/19 06:00) Code/Resuscitation (10/28/19 11:36) Acetaminophen Suppository (Tylenol Suppo (10/28/19 11:45) Ascorbic Acid Tablet (Vitamin C Tablet) (10/28/19 17:00) Diphenhydramine Tablet (Benadryl Tablet) (10/28/19 11:45) Benzonatate Capsule (Tessalon Perles) (10/28/19 11:45) Carboxymethylcell Ophth Soln (Refresh Pl (10/28/19 11:45) Cholecalciferol Capsule/Tablet (Vitamin (10/29/19 09:00) Diphenoxylate/Atropine Tablet (Lomotil T (10/28/19 11:45) Bisacodyl Suppository (Dulcolax Supposit (10/28/19 11:45) Fluconazole Tablet (Diflucan Tablet) (10/29/19 09:00) Enoxaparin Injection (Lovenox Injection) (10/28/19 21:00) Melatonin Tablet (Melatonin Tablet) (10/28/19 11:45) Polyethylene Glycol Powder Pkt (Miralax (10/28/19 11:45) Antacid Suspension (Mylanta Suspension (10/28/19 11:45) Patient May Use Own Meds, All (Patient M (10/28/19 11:45) Acetaminophen Tablet/Caplet (Tylenol T (10/28/19 11:45) Zinc Sulfate Capsule (Zinc 50 Mg Capsule (10/29/19 08:00) Consult Cardiology (10/28/19 11:36) Consult Pulmonology (10/28/19 11:36) Incentive Spirometry Initial (10/28/19 11:36) Incentive Spirometry (Nursing) Q2H (10/28/19 11:36) Hydrocodone/Apap 5/325 Tablet (Lortab 5 (10/28/19 11:45) Admission Arrival Bed Request (10/28/19 11:00) General/Regular (10/28/19 Lunch) Patient Visit (10/28/19 ) Speech Sound Lang Comp (10/28/19 ) Patient Visit (10/28/19 ) Pt Eval Moderate Complexity (10/28/19 ) Functional Activities, Ea 15 (10/28/19 ) Request Ot Evaluate & Treat (10/28/19 14:42) Ambulate ,, (10/28/19 14:42) Sequential Compression Device Q4H (10/28/19 14:42) Dvt/Vte Risk - Notifiy Physici Q4H (10/28/19 14:42) Ensure Enlive (10/28/19 Dinner) General/Regular (10/29/19 Breakfast) Magic Mouthwash, Adult (Magic Mouthwash, (10/29/19 12:00) Nystatin Susp For Compounding (Mycostati (10/29/19 12:02) Consult Wound Care Physician (10/29/19 13:38) Patient Visit (10/29/19 ) Functional Activities, Ea 15 (10/29/19 ) Exercise Therap, Ea 15 Min (10/29/19 ) Patient Visit (10/29/19 ) Treat. Speech/Lang/Voice (10/29/19 ) Bacitracin Ointment (Bacitracin Ointment (10/29/19 21:00) Dressing Order (Intervention) BID PRN (10/29/19 17:14) Rehab Nursing Orders: Ongoing Assess. of Function Status, Bladder Training, Bowel Management, Bowel Training, Disease Management & Educaiton, DVT Prophylaxis, Fall Prevention, Fluid/Electrolyte/Nutrition Mgmt, Infection Prevention, Medication Management & Education, Management of Risks & Complications, Management of Skin Intergrity, Nutrition Management, Pain Management, Patient/Family Support, Safety Management, Swallow Precautions Intensity of Therapy to be met Patient to be seen: Min.3h per day/5 of 7d PT IPOC Problem List: Activity Tolerance, Functional Strength, Safety, Balance, Gait, Transfer, Bed Mobility, ROM Treatment Plan: Continue Plan of Care Bed Mobility, Education, Functional Activity [place], Functional Strength, Group Therapy, Gait, Safety, Therapeutic Exercise, Transfers Treatment Duration: November 18, 2019 Frequency: Modified Program (IRF) Estimated Hrs Per Day: 1 hour per day OT IPOC Problems: Decreased Activ Tolerance, Decreased UE Strength, Dependent Transfers, Impaired Coordination, Impaired Funct Balance, Impaired I ADL's, Impaired Self-Care Skills OT Treatment, Training and Edu: Yes Plan of Care: ADL Retraining, Functional Mobility, Group Exercise/Act as Ind, UE Funct Exercise/Act, UE Neuromus Re-Ed/Coord Treatment Duration: November 18, 2019 Frequency: Modified Program (IRF) Estimated Hrs Per Day: Other [facility] Speech Therapy Treatment Plan: Continue Plan of Care Treatment Duration: November 13, 2019 Frequency: 5 times per week Estimated Hrs Per Day: .25 hour per day Wool Merchant/Case Mgmt Wool Merchant/Case Managemen: Discharge Planning Dietitian/Architectural Practice Manager Dietitian/Architectural Practice Manager to monitor nutritional status and make changes and/or recommendations as needed and work with speech pathology on dietary upgrades as the occur. Physician IP Medical Issues being managed closely and that require the 24 hour availability of a physician: Severe coronavirus requiring close monitoring for respiratory decompensation and multiple organ system dysfunction Medical Issues: Bowel/Bladder Function, DVT Prophylaxis, Falls Precautions, Fluid/Electrolyte/Nutrition Balance, Infection Protection, Pain Management Brief Synthesis of Preadmission Screen, Post-Admission Evaluation, and Therapy Evaluations: PT OT will focus on increasing stamina and muscle strength in order to prevent falls and return home Medical Prognosis: Good Anticipated Length of Stay: 14 days JASE MAGALLANES DO Oct 29, 2019 10:04
--- NOTE | 2019-10-29 10:04 | PM&R Progress Note ---
Subjective HPI/CC On Admission Date Seen by Provider: Oct 29, 2019 Time Seen by Provider: 11:00 Subjective/Events-last exam Patient having a good day Nebs will be scheduled for BID Wound care will obtain medicated pads to place on her abrasions and eschars from the mask on her face Dr Torres will be consulted for the chin eschar to minimize scarring BM loose so holding laxatives No O2 is required now completely weaned off Overall having a great recovery Checked meds and labs Reviewed therapy notes Reviewed therapy notes Review of Systems General: Fatigue Neurological: Weakness, Numbness, Incoordination Objective Exam Vital Signs Vital Signs Date Time Temp Pulse Resp B/P (MAP) Pulse Ox O2 Delivery O2 Flow Rate FiO2 10/30/19 05:00 37.2 54 18 118/75 (89) 98 Room Air Capillary Refill : Less Than 3 Seconds General Appearance: No Apparent Distress, WD/WN, Chronically ill, Obese HEENT: PERRL/EOMI, Normal ENT Inspection, Pharynx Normal Neck: Full Range of Motion, Normal Inspection, Non Tender, Supple, Carotid Bruit Respiratory: Chest Non Tender, Lungs Clear, No Accessory Muscle Use, No Respiratory Distress, Decreased Breath Sounds Cardiovascular: Regular Rate, Rhythm, No Edema, No Gallop, No JVD, No Murmur, Normal Peripheral Pulses Gastrointestinal: Normal Bowel Sounds, No Organomegaly, No Pulsatile Mass, Non Tender, Soft Back: Normal Inspection, No CVA Tenderness, No Vertebral Tenderness Extremity: Normal Capillary Refill, Normal Inspection, Normal Range of Motion, Non Tender, No Calf Tenderness, No Pedal Edema Neurologic/Psychiatric: Alert, Oriented x3, No Motor/Sensory Deficits, bin filler II- XII Norm as Tested, Abnormal Gait, Depressed Affect, Motor Weakness (generalized weakness all extremities 3/5) Skin: Normal Color, Warm/Dry Lymphatic: No Adenopathy Results/Procedures Lab Patient resulted labs reviewed. FIM Transfers Therapy Code Descriptions/Definitions Functional [place] Measure: 0=Not Assessed/NA 4=Minimal Assistance 1=Total Assistance 5=Supervision or Setup 2=Maximal Assistance 6=Modified [place] 3=Moderate Assistance 7=Complete IndependenceSCALE: Activities may be completed with or without assistive devices. 6-Pujquhhlje-xxlhvlh completes the activity by him/herself with no assistance from a helper. 5-Set-up or Clean-up Assistance-helper sets up or cleans up; patient completes activity. [place] assists only prior to or following the activity. 4-Supervision or Touching Assistance-helper provides verbal cues and/or touching/steadying and/or contact guard assistance as patient completes activity. Assistance may be provided throughout the activity or intermittently. 3-Partial/Moderate Assistance-helper does LESS THAN HALF the effort. [place] lifts, holds or supports trunk or limbs, but provides less than half the effort. 2-Substantial/Maximal Assistance-helper does MORE THAN HALF the effort. [place] lifts or holds trunk or limbs and provides more than half the effort. 4-Beroglpjd-bkxwsf does ALL the effort. Patient does none of the effort to complete the activity. Or, the assistance of 2 or more helpers is required for the patient to complete the activity. If activity was not attempted, code reason: 7-Patient Refused. 9-Not Applicable-not attempted and the patient did not perform the activity before the current illness, exacerbation or injury. 10-Not Attempted due to Environmental Limitations-(lack of equipment, weather restraints, etc.). 88-Not Attempted due to Medical Conditions or Safety Concerns. Roll Left to Right (QC): 2 Sit to Lying (QC): 2 Sit to Stand (QC): 3 Chair/Wze-op-Athhc Xfer(QC): 3 Car Transfer (QC): 2 Gait Training Does the Patient Walk?: No and Walking Goal IS indicated Walk 10 feet (QC): 88 Walk 50 ft with 2 Turns(QC): 88 Walk 150 ft (QC): 88 Walking 10ft/uneven surface-QC: 88 Wheelchair Training Does the Pt Use a Wheelchair?: Yes Wheel 50 ft with 2 turns (QC): 1 Wheel 150 ft (QC): 1 Type of Wheelchair: Manual Stair Training 1 Step (curb) (QC): 88 4 Steps (QC): 88 12 Steps (QC): 88 Balance Picking up an Object (QC): 88 ADL-Treatment Eating (QC): 10 Oral Hygiene (QC): 2 Shower/Bathe Self (QC): 7 (pt states she already completed bathing this morning) Upper Body Dressing (QC): 2 Lower Body Dressing (QC): 1 On/Off Footwear (QC): 1 Toileting Hygiene (QC): 1 Assessment/Plan Assessment and Plan Assess & Plan/Chief Complaint Assessment: Critical illness myopathy Coronavirus s/p treatment and out of isolation s/p VDRF Lovenox for DVT PPx Facial abrasions from vent mask Plan: IRF protocol Monitor labs Dramatic improvement Wound care to facial wounds from vent mask (1) Myopathy (2) Coronavirus infection Status: Acute JASE MAGALLANES DO Oct 29, 2019 10:04
--- NOTE | 2019-10-29 10:51 | Physical Therapy Daily Note ---
PT Daily Note-Current Subjective Pt up in chair, agreeable to work with PT/OT this AM. Reported post shower, "Thank you. That felt so good!" Mental Status Patient Orientation: Person, Place, Time, Situation Transfers SCALE: Activities may be completed with or without assistive devices. 3-Ghnsjqheff-lfvgrpc completes the activity by him/herself with no assistance from a helper. 5-Set-up or Clean-up Assistance-helper sets up or cleans up; patient completes activity. [place] assists only prior to or following the activity. 4-Supervision or Touching Assistance-helper provides verbal cues and/or touching/steadying and/or contact guard assistance as patient completes activity. Assistance may be provided throughout the activity or intermittently. 3-Partial/Moderate Assistance-helper does LESS THAN HALF the effort. [place] lifts, holds or supports trunk or limbs, but provides less than half the effort. 2-Substantial/Maximal Assistance-helper does MORE THAN HALF the effort. [place] lifts or holds trunk or limbs and provides more than half the effort. 3-Axjaoiarw-elerfj does ALL the effort. Patient does none of the effort to complete the activity. Or, the assistance of 2 or more helpers is required for the patient to complete the activity. If activity was not attempted, code reason: 7-Patient Refused. 9-Not Applicable-not attempted and the patient did not perform the activity before the current illness, exacerbation or injury. 10-Not Attempted due to Environmental Limitations-(lack of equipment, weather restraints, etc.). 88-Not Attempted due to Medical Conditions or Safety Concerns. Lying to Sitting/Side of Bed(Q: 2 Sit to Stand (QC): 3 Chair/Kdq-rk-Iwyfy Xfer(QC): 3 Dependent assist of additional person to don/doff brief in standing. Weight Bearing Right Lower Extremity: Right Full Weight Bearing Left Lower Extremity: Left Full Weight Bearing Gait Training Does the Patient Walk?: No and Walking Goal IS indicated Treatments Sit<->stand and chair<->chair/bed transfers with min A x 1 multiple times to move to shower chair->WCH->bed. Pt able to take small dance style steps to complete transfer, occasional knee buckling but Pt able to recover without additional assist. Pt completed shower with OT/PT assist PRN (see OT). Co-treat with OT due to poor functional activity tolerance, level of skilled assist required. OT addressing ADLs, UE use, PT addressing functional transfers and sitting balance, core control with ADLs. Pt in bed with all needs met post treatment. Assessment Current Status: Good Progress Pt tolerated well. States she has been in the chair 5+ hours after treatment. Pt is very motivated to participate. PT Short Term Goals Short Term Goals Time Frame: Nov 04, 2019 Roll Left & Right: 3 Sit to lyin Lying to sitting on side of be: 3 Sit to stand: 3 Chair/bqw-ub-oarqy transfer: 3 Walk 10 feet: 3 PT Half-Way Goals Regulatory Services Consultant Goals PT Half-Way Goals Time Frame: November 18, 2019 Roll Left & Right (QC): 4 Sit to Lying (QC): 4 Lying-Sitting on Side/Bed(QC): 4 Sit to Stand (QC): 4 Chair/Wcm-to-Voycy Xfer(QC): 4 Toilet Transfer (QC): 4 Car Transfer (QC): 4 Does the Patient Walk: Yes Walk 10 feet (QC): 4 Walk 50ft with 2 Turns (QC): 4 Walk 150 ft (QC): 88 Walking 10ft on Uneven Surface: 88 1 Step (curb) (QC): 3 4 Steps (QC): 88 12 Steps (QC): 88 Picking up an Object (QC): 88 Wheel 50 feet with 2 turns (QC: 6 Wheel 150 feet: 6 PT Plan Problem List Problem List: Activity Tolerance, Functional Strength, Safety, Balance, Gait, Transfer, Bed Mobility Treatment/Plan Treatment Plan: Continue Plan of Care Treatment Plan: Bed Mobility, Education, Functional Activity Sh[place]onda, Functional Strength, Group Therapy, Gait, Safety, Therapeutic Exercise, Transfers Treatment Duration: November 18, 2019 Frequency: Modified Program (IRF) Estimated Hrs Per Day: 1 hour per day Patient and/or Family Agrees t: Yes Time/GCodes Time In: 0900 Time Out: 1025 Total Billed Treatment Time: 85 Total Billed Treatment 1, FA x 85' KIAH AVILES DPAman Oct 29, 2019 10:51
--- NOTE | 2019-10-29 11:13 | Occupational Ther Daily Note ---
OT Current Status-Daily Note Subjective Pt alert, sitting in recliner. Pt agrees to therapy. No c/o pain at this time. Mental Status/Objective Patient Orientation: Person, Place, Time, Situation Attachments: IV (midline) ADL-Treatment Co-treat with PT ([id number]), skills of 2 clinicians are required due to medical complexity, low activity tolerance, decreased mobility and overall weakness. PT worked on B LE strengthening, transfers and core strengthening. OT worked on ADLs, hand placement during transfers and B UE strengthening. See PT notes for pt progress on strengthening and transfers. Pt agrees to shower. See PT notes for transfers. Pt transferred with assist x2 to rolling shower chair. Pt was able to wash abdomen only. Due to increased weakness, pt unable to reach other areas to bath or dry. Pt lifted R UE fdc to face then assist to lift hand rest of way and pt brought head down to hand and moved head around to wash mouth and nose. Pt required assist to thread B UE into pajamas, order puller head and down back. Assist to thread feet into briefs, pull up B LE then PT stood pt while OT hiked pants over hips. Pt required assist to complete grooming. Using clinical judgment, pt unable to set up oral care and bring toothbrush to mouth to complete. Pt requires assist to set up meal and assist to eat. Pt takes increased time to complete ADLs. Pt requires assist x2 to go from EOB to supine and bed mobility. After session, pt lying in bed with call light/phone in reach. All needs met in room. Therapy Code Descriptions/Definitions Functional [place] Measure: 0=Not Assessed/NA 4=Minimal Assistance 1=Total Assistance 5=Supervision or Setup 2=Maximal Assistance 6=Modified [place] 3=Moderate Assistance 7=Complete IndependenceSCALE: Activities may be completed with or without assistive devices. 6-Teptzicstz-gntjhdl completes the activity by him/herself with no assistance from a helper. 5-Set-up or Clean-up Assistance-helper sets up or cleans up; patient completes activity. [place] assists only prior to or following the activity. 4-Supervision or Touching Assistance-helper provides verbal cues and/or touching/steadying and/or contact guard assistance as patient completes activity. Assistance may be provided throughout the activity or intermittently. 3-Partial/Moderate Assistance-helper does LESS THAN HALF the effort. [place] lifts, holds or supports trunk or limbs, but provides less than half the effort. 2-Substantial/Maximal Assistance-helper does MORE THAN HALF the effort. [place] lifts or holds trunk or limbs and provides more than half the effort. 9-Vajsinngw-cmjixl does ALL the effort. Patient does none of the effort to complete the activity. Or, the assistance of 2 or more helpers is required for the patient to complete the activity. If activity was not attempted, code reason: 7-Patient Refused. 9-Not Applicable-not attempted and the patient did not perform the activity before the current illness, exacerbation or injury. 10-Not Attempted due to Environmental Limitations-(lack of equipment, weather restraints, etc.). 88-Not Attempted due to Medical Conditions or Safety Concerns. Eating (QC): 2 Oral Hygiene (QC): 2 Shower/Bathe Self (QC): 2 Upper Body Dressing (QC): 2 Lower Body Dressing (QC): 1 On/Off Footwear: 2 OT Short Term Goals Short Term Goals Time Frame: Nov 04, 2019 Oral hygiene: 3 Toileting hygiene: 3 Upper body dressin Lower body dressin OT Carpet Layer Goals Snf Goals Time Frame: November 18, 2019 Eating (QC): 6 Oral Hygiene (QC): 6 Toileting Hygiene (QC): 5 Shower/Bathe Self (QC): 4 Upper Body Dressing (QC): 5 Lower Body Dressing (QC): 5 On/Off Footwear (QC): 5 Additional Goals: 1-Demonstrate ADL Tasks, 2-Verbalize Understanding, 3- ImproveStrength/[place] 1=Demonstrate adherence to instructed precautions during ADL tasks. 2=Patient will verbalize/demonstrate understanding of assistive devices/modifications for ADL. 3=Patient will improve strength/tolerance for activity to enable patient to perform ADL's. OT Education/Plan Problem List/Assessment Assessment: Decreased Activ Tolerance, Decreased UE Strength, Impaired Bed Mobility, Impaired Coordination, Impaired Funct Balance, Impaired I ADL's, Impaired Self-Care Skills, Restricted Funct UE ROM Discharge Recommendations Plan/Recommendations: Continue POC Treatment Plan/Plan of Care Patient would benefit from OT for education, treatment and training to promote i ndependence in ADL's, mobility, safety and/or upper extremity function for ADL's. Plan of Care: ADL Retraining, Functional Mobility, Group Exercise/Act as Ind, UE Funct Exercise/Act, UE Neuromus Re-Ed/Coord Treatment Duration: November 18, 2019 Frequency: Modified Program (IRF) Rehab Potential: Fair Time/GCodes Start Time: 09:00 Stop Time: 10:25 Total Time Billed (hr/min): 85 Billed Treatment Time 1 visit-ADL 6 (85 min) co-treat with PT 85 min ([id number]) MELLY ORDAZ Oct 29, 2019 11:13
--- NOTE | 2019-10-29 11:29 | NUR ---
CM/SS ADMISSION Patient was admitted to ARU 10/28/19 from [facility] for critical illness myopathy. She has been hospitalized since 10/11/19 for +Covid19, intubated October 15-. Declined and diminished status due to critical illness, inactivity, weakness. Met with patient and with her spouse via skype at bedside. 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 She resides with her spouse, Kusum Truong, in [facility] and has verbalized her goal is to return home as well as back to work as soon as able. PCP: Dr. Yamilex Judd MD, [place], [place] PHARMACY: [facility] INSURANCE: [employer] [facility] DME: No history of need. Will continue to explore therapy recommendations as patient progresses toward discharge. BARRIERS TO DISCHARGE: None noted at this time beyond physical recovery relative to home performance and safety. Behavioral Health consult/assessment was completed yesterday by Inna Belle, see EMR for her detailed summary. She indicated patient was within a normal range of mental status and situational depression, recommended no psychotropics at this time. CONTACTS/CAREGIVER(S): Kusum Truong, Spouse [address] [place] [address] They have 3 children all in close proximity, willing/able to assist as needed: Gretta Truong, Daughter (She is an RN) [address] [place] [address] Ann Sawant, Daughter (She is an RN) [place] of [place] Truong, Son [address] [place] [address] Patient understood the purpose and process of the Weekly Team Conference and that she would be reviewed Saturday11/04/19 regarding progress and discharge date proposals. Continue intermittent observation of therapy sessions, review of EMR, patient visits.
[2019-10-29] MEDS ORDERED: MAGIC MOUTHWASH, ADULT 155 ML BOTTLE PO SCH (12:00)
--- NOTE | 2019-10-29 13:40 | Speech Therapy Daily Note ---
Speech Daily Progress Note Subjective Date Seen by Provider: Oct 29, 2019 Time Seen by Provider: 00:30 Patient was much more alert and talkative today. Objective Patient completed a series of q/a related to her daily needs with 80% given minimal cuing. Assessment Assessment Current Status: Good Progress Treatment Plan Continue Plan of Care Speech Short Term Goals Short Term Goals Short Term Goals 1) Patient will complete memory tasks related to her daily needs at 90% or greater with minimal cues. 2) Patient will complete executive function tasks related to her daily needs at 90% or greater with minimal cues. 3) Patient will complete word finding tasks related to her daily needs at 90% or greater with minimal cues. 4) Patient will complete safety awareness tasks related to her daily needs at 90% or greater with minimal cues. Speech Bonded Structures Repairer Goals Bonded Structures Repairer Goals Patient will improve cognitive-communication necessary for safety and daily living tasks with minimal assist. Speech-Plan Patient/Family Goals Patient/Family Goals: Patient plans on returning home where she lives with her upon rehab discharge. Treatment Plan Speech Therapy Treatment Plan: Continue Plan of Care Treatment Duration: November 13, 2019 Frequency: 5 times per week Estimated Hrs Per Day: .25 hour per day Rehab Potential: Fair Barriers to Learning: Patient's recent illness/medical status Pt/Family Agrees to Plan: Yes Safety Risks/Education Teaching Recipient: Patient Teaching Methods: Discussion Response to Teaching: Verbalize Understanding Education Topics Provided: Safety within her room and communication of wants/needs Time Speech Therapy Time In: 11:30 Speech Therapy Time Out: 12:00 Total Billed Time: 30 Billed Treatment Time 1LUCIA BETHAN[address] ST Oct 29, 2019 13:40
--- NOTE | 2019-10-29 13:53 | Physical Therapy Daily Note ---
PT Daily Note-Current Subjective Pt agreeable. No c/o. Agreeable to get up to chair post session. Mental Status Patient Orientation: Person, Place, Time, Situation Transfers SCALE: Activities may be completed with or without assistive devices. 7-Hkkatxuvll-rqzbshz completes the activity by him/herself with no assistance from a helper. 5-Set-up or Clean-up Assistance-helper sets up or cleans up; patient completes activity. [place] assists only prior to or following the activity. 4-Supervision or Touching Assistance-helper provides verbal cues and/or touching/steadying and/or contact guard assistance as patient completes activity. Assistance may be provided throughout the activity or intermittently. 3-Partial/Moderate Assistance-helper does LESS THAN HALF the effort. [place] lifts, holds or supports trunk or limbs, but provides less than half the effort. 2-Substantial/Maximal Assistance-helper does MORE THAN HALF the effort. [place] lifts or holds trunk or limbs and provides more than half the effort. 8-Lpsbghtrm-wrplpj does ALL the effort. Patient does none of the effort to complete the activity. Or, the assistance of 2 or more helpers is required for the patient to complete the activity. If activity was not attempted, code reason: 7-Patient Refused. 9-Not Applicable-not attempted and the patient did not perform the activity before the current illness, exacerbation or injury. 10-Not Attempted due to Environmental Limitations-(lack of equipment, weather restraints, etc.). 88-Not Attempted due to Medical Conditions or Safety Concerns. Roll Left & Right (QC): 5 Lying to Sitting/Side of Bed(Q: 3 Sit to Stand (QC): 3 Chair/Bwn-su-Smdti Xfer(QC): 3 Weight Bearing Right Lower Extremity: Right Full Weight Bearing Left Lower Extremity: Left Full Weight Bearing Gait Training Does the Patient Walk?: No and Walking Goal IS indicated Exercises Supine Ex: Ankle pumps, Quad Set, Short Arc Quads, Hip abd/add Supine Reps: 20 Treatments Supine LE exercises, transfer training to bed side chair. Pt up in chair with all needs met, OT in room. Assessment Current Status: Good Progress Pt tolerated well. (B) ankle DF strength grossly 2/5. Able to perform bed mobility to move up in bed (I) this date. Improving activity tolerance. Mildly retropulsive upon standing. PT Short Term Goals Short Term Goals Time Frame: Nov 04, 2019 Roll Left & Right: 3 Sit to lyin Lying to sitting on side of be: 3 Sit to stand: 3 Chair/ffe-tu-rtztv transfer: 3 Walk 10 feet: 3 PT Banking Representative Goals Banking Representative Goals PT Banking Representative Goals Time Frame: November 18, 2019 Roll Left & Right (QC): 4 Sit to Lying (QC): 4 Lying-Sitting on Side/Bed(QC): 4 Sit to Stand (QC): 4 Chair/Izk-jl-Ysqln Xfer(QC): 4 Toilet Transfer (QC): 4 Car Transfer (QC): 4 Does the Patient Walk: Yes Walk 10 feet (QC): 4 Walk 50ft with 2 Turns (QC): 4 Walk 150 ft (QC): 88 Walking 10ft on Uneven Surface: 88 1 Step (curb) (QC): 3 4 Steps (QC): 88 12 Steps (QC): 88 Picking up an Object (QC): 88 Wheel 50 feet with 2 turns (QC: 6 Wheel 150 feet: 6 PT Plan Problem List Problem List: Activity Tolerance, Functional Strength, Safety, Balance, Gait, Transfer, Bed Mobility Treatment/Plan Treatment Plan: Continue Plan of Care Treatment Plan: Bed Mobility, Education, Functional Activity [place], Functional Strength, Group Therapy, Gait, Safety, Therapeutic Exercise, Transfers Treatment Duration: November 18, 2019 Frequency: Modified Program (IRF) Estimated Hrs Per Day: 1 hour per day Patient and/or Family Agrees t: Yes Time/GCodes Time In: 1307 Time Out: 1330 Total Billed Treatment Time: 23 Total Billed Treatment 1, Ex x 13', FA x 10' KIAH AVILES DPAman Oct 29, 2019 13:53
--- NOTE | 2019-10-29 14:00 | Occupational Ther Daily Note ---
OT Current Status-Daily Note Subjective Pt alert, lying in bed. Took over care from PT. Pt agrees to therapy. No c/o pain. Mental Status/Objective Patient Orientation: Person, Place, Time, Situation Attachments: IV (midline) ADL-Treatment Therapy Code Descriptions/Definitions Functional [place] Measure: 0=Not Assessed/NA 4=Minimal Assistance 1=Total Assistance 5=Supervision or Setup 2=Maximal Assistance 6=Modified [place] 3=Moderate Assistance 7=Complete IndependenceSCALE: Activities may be completed with or without assistive devices. 7-Ywzbfflyfl-lhxokgo completes the activity by him/herself with no assistance from a helper. 5-Set-up or Clean-up Assistance-helper sets up or cleans up; patient completes activity. [place] assists only prior to or following the activity. 4-Supervision or Touching Assistance-helper provides verbal cues and/or touching/steadying and/or contact guard assistance as patient completes activity. Assistance may be provided throughout the activity or intermittently. 3-Partial/Moderate Assistance-helper does LESS THAN HALF the effort. [place] lifts, holds or supports trunk or limbs, but provides less than half the effort. 2-Substantial/Maximal Assistance-helper does MORE THAN HALF the effort. [place] lifts or holds trunk or limbs and provides more than half the effort. 1-Ahkyttcsc-dgffdm does ALL the effort. Patient does none of the effort to complete the activity. Or, the assistance of 2 or more helpers is required for the patient to complete the activity. If activity was not attempted, code reason: 7-Patient Refused. 9-Not Applicable-not attempted and the patient did not perform the activity before the current illness, exacerbation or injury. 10-Not Attempted due to Environmental Limitations-(lack of equipment, weather restraints, etc.). 88-Not Attempted due to Medical Conditions or Safety Concerns. Other Treatment Assist x2 for supine to EOB. CGA for safety to sit EOB. Min assist x2 for SPT from EOB to recliner. Pt able to scoot self back in chair using B UE and L UE. Pt then completed B elbow flexion 5x's, fatigued quickly. AAROM for shldr flexion 10X's. Pt c/o pain/stiffness with shldr flexion. B shldr elevation and retraction, 5x's 2sets. Pt encouraged to complete exercises throughout the day. After session, pt sitting in recliner with call light/phone in reach. All needs met in room. OT Short Term Goals Short Term Goals Time Frame: Nov 04, 2019 Oral hygiene: 3 Toileting hygiene: 3 Upper body dressin Lower body dressin OT [employer] Con[employer] Operator Goals [place] Con[employer] Operator Goals Time Frame: November 18, 2019 Eating (QC): 6 Oral Hygiene (QC): 6 Toileting Hygiene (QC): 5 Shower/Bathe Self (QC): 4 Upper Body Dressing (QC): 5 Lower Body Dressing (QC): 5 On/Off Footwear (QC): 5 Additional Goals: 1-Demonstrate ADL Tasks, 2-Verbalize Understanding, 3- ImproveStrength/Shalonda 1=Demonstrate adherence to instructed precautions during ADL tasks. 2=Patient will verbalize/demonstrate understanding of assistive devices/modif ications for ADL. 3=Patient will improve strength/tolerance for activity to enable patient to perform ADL's. OT Education/Plan Problem List/Assessment Assessment: Decreased Activ Tolerance, Decreased UE Strength, Dependent Transfers, Impaired Coordination, Impaired Funct Balance, Impaired I ADL's, Impaired Self-Care Skills, Restricted Funct UE ROM Discharge Recommendations Plan/Recommendations: Continue POC Treatment Plan/Plan of Care Patient would benefit from OT for education, treatment and training to promote independence in ADL's, mobility, safety and/or upper extremity function for ADL's. Plan of Care: ADL Retraining, Functional Mobility, Group Exercise/Act as Ind, UE Funct Exercise/Act, UE Neuromus Re-Ed/Coord Treatment Duration: November 18, 2019 Frequency: Modified Program (IRF) Rehab Potential: Fair Time/GCodes Start Time: 13:30 Stop Time: 13:50 Total Time Billed (hr/min): 20 Billed Treatment Time 1 visit-FA 1 (20 min) MELLY ORDAZ Oct 29, 2019 14:00
[2019-10-29] MEDS: MAGIC MOUTHWASH (ADULT) PO SCH ×8 (14:04→21:37)
[2019-10-29 16:17] VITALS: BP 144/77
--- NOTE | 2019-10-29 17:24 | Wound Care Assessment ---
Wound Care Assessment Date Seen by Provider: Oct 29, 2019 Time Seen by Provider: 17:18 Chief Complaint Bilateral cheek and inferior chin injury from non-invasive ventilation mask. HPI The patient is a 59 year old female, fortunate enough to survive a recent episode of COVID-19, requiring 10 days of ventilator support. She has multiple device-related pressure injuries to her face of various stages. she is concerned regarding the serous drainage from the R cheek wound getting into her R eye. The wounds do not appear to be secondarily infected. Past Medical History: Admits Heart Disease (Recent episode of bradycardia.) Smoking Status: Never a Smoker Recreational Drug Use: No Alcohol Use: Denies Use Review of Systems Pulmonary: No Dyspnea Cardiovascular: No: Chest Pain Exam Vital Signs Date Time Temp Pulse Resp B/P (MAP) Pulse Ox O2 Delivery O2 Flow Rate FiO2 10/29/19 16:17 37.1 86 16 144/77 (99) 95 Room Air Capillary Refill : Less Than 3 Seconds General Appearance: no apparent distress HEENT: No scleral icterus (R), No scleral icterus (L); other (R cheek -- 1.1 x 1.4 x 0.1 cm, base slough and regenerating tissue, mod. s.s. drainage; L cheek -- 0.5 x 1.1 x 0.1 cm with eccymosis and intact epidermis; chin -- 2.6 x 4.5 x 0.1 cm, 100% eschar.) Results Laboratory Tests 10/29/19 05:50: White Blood Count 7.7, Red Blood Count 4.29L, Hemoglobin 12.6, Hematocrit 37, Mean Corpuscular Volume 87, Mean Corpuscular Hemoglobin 29, Mean Corpuscular Hemoglobin Concent 34, Red Cell Distribution Width 15.1H, Platelet Count 276, Mean Platelet Volume 10.9H, Neutrophils (%) (Auto) 62, Lymphocytes (%) (Auto) 24, Monocytes (%) (Auto) 13H, Eosinophils (%) (Auto) 1, Basophils (%) (Auto) 0, Neutrophils # (Auto) 4.8, Lymphocytes # (Auto) 1.9, Monocytes # (Auto) 1.0, Eosinophils # (Auto) 0.1, Basophils # (Auto) 0.0, Sodium Level 141, Potassium Level 3.6, Chloride Level 109H, Carbon Dioxide Level 22, Anion Gap 10, Blood Urea Nitrogen 11, Creatinine 0.66, Estimat Glomerular Filtration Rate > 60, BUN/Creatinine Ratio 17, Glucose Level 98, Calcium Level 9.6, Corrected Calcium 10.2H, Total Bilirubin 1.0, Aspartate Amino Transf (AST/SGOT) 40H, Alanine Aminotransferase (ALT/SGPT) 69H, Alkaline Phosphatase 80, Total Protein 5.8L, Albumin 3.2 Assessment/Plan/Dx 1. Pressure ulcer, device-related, R cheek, Stage 2. 2. Pressure injury, device-related, L cheek, Stage 1. 3. Pressure ulcer, device-related, chin, Stage 3. 4. COVID-19, pneumonia, recovering. 5. Prolonged ventilator dependence, due to #4. Plan: will use Bacitracin ointment on cheek injuries, and leave chin open to air. Hopefully, these wounds will heal without aggressive intervention. GUILLERMO MCGRATH MD Oct 29, 2019 17:24
[2019-10-29 18:00] VITALS: BP 144/80
[2019-10-29] MEDS: ARTIFICAL TEARS 0.4 ML UNIT DOSE (REFRESH PLUS) OU PRN (18:51)
[2019-10-29] MEDS: BACITRACIN OINTMENT 28 GM TUBE TOP SCH (18:51)
--- NOTE | 2019-10-29 19:25 | NUR ---
bedside report received from DILAN JAFFE/ SHANTANU JAFFE, assume care of pt
[2019-10-29] MEDS: MELATONIN 3 MG TABLET PO PRN (21:34)
--- NOTE | 2019-10-29 21:37 | NUR ---
pt refused Colace, miralax & Senokot, c/o mouth pain level 0/10 on numeric scale, Mycostatin liq 5ml given
--- NOTE | 2019-10-29 22:00 | NUR ---
rates pain level 0/10 on numeric scale, wound care done to cheeks of face & chin, chin left no ointment on it
[2019-10-30] MEDS: ACETAMINOPHEN 325 MG TABLET PO PRN (04:40)
--- NOTE | 2019-10-30 04:40 | NUR ---
C/O ankle pain level 5/10, Tylenol 650mg po given
[2019-10-30 05:00] VITALS: BP 118/75
--- NOTE | 2019-10-30 05:15 | NUR ---
pain level 3/10 on numeric scale
[2019-10-30] MEDS: ASCORBIC ACID (VIT C) 500 MG TABLET PO SCH ×2 (06:47→17:11)
[2019-10-30] MEDS: polyethylene glycoL POWDER 17 GM (MIRALAX) PACK PO SCH ×2 (08:34→20:45)
[2019-10-30] MEDS: DOCUSATE SODIUM 100 MG (COLACE) CAP PO SCH ×2 (08:34→20:44)
[2019-10-30] MEDS: SENNA W/DOCUSATE (SENOKOT S) TABLET PO SCH ×2 (08:35→20:45)
[2019-10-30] MEDS: fluCOnazole (DIFLUCAN) 100 MG TAB PO SCH (08:51)
[2019-10-30] MEDS: BACITRACIN OINTMENT 28 GM TUBE TOP SCH ×2 (08:52→20:41)
[2019-10-30] MEDS: VITAMIN D3 25 MCG (1,000 UNITS) TABLET PO SCH (08:52)
[2019-10-30] MEDS: ZINC SULFATE 220 MG CAPSULE PO SCH (08:52)
[2019-10-30] MEDS: ENOXAPARIN 40 MG/0.4 ML (LOVENOX) SYR SC SCH ×2 (08:52→20:41)
[2019-10-30] MEDS: MAGIC MOUTHWASH (ADULT) PO SCH ×8 (08:53→20:46)
--- NOTE | 2019-10-30 10:55 | Speech Therapy Daily Note ---
Speech Daily Progress Note Subjective Date Seen by Provider: Oct 30, 2019 Time Seen by Provider: 00:30 Patient was resting in her recliner and stated she feels she is getting better by the day. Objective Patient completed safety awareness tasks with q/a at 90% with minimal cues. Assessment Assessment Current Status: Good Progress Treatment Plan Continue Plan of Care Speech Short Term Goals Short Term Goals Short Term Goals 1) Patient will complete memory tasks related to her daily needs at 90% or greater with minimal cues. 2) Patient will complete executive function tasks related to her daily needs at 90% or greater with minimal cues. 3) Patient will complete word finding tasks related to her daily needs at 90% or greater with minimal cues. 4) Patient will complete safety awareness tasks related to her daily needs at 90% or greater with minimal cues. Speech Mcc Goals Mcc Goals Patient will improve cognitive-communication necessary for safety and daily living tasks with minimal assist. Speech-Plan Patient/Family Goals Patient/Family Goals: Patient will return to her home with her upon discharge. Treatment Plan Speech Therapy Treatment Plan: Continue Plan of Care Treatment Duration: November 13, 2019 Frequency: 5 times per week Estimated Hrs Per Day: .25 hour per day Rehab Potential: Fair Barriers to Learning: Patient's recent illness Pt/Family Agrees to Plan: Yes Safety Risks/Education Teaching Recipient: Patient Teaching Methods: Demonstration, Discussion Response to Teaching: Verbalize Understanding, Return Demonstration Education Topics Provided: Continued safety and communication Time Speech Therapy Time In: 10:00 Speech Therapy Time Out: 10:30 Total Billed Time: 30 Billed Treatment Time 1LUCIA BETHANIA ST Oct 30, 2019 10:55
--- NOTE | 2019-10-30 11:04 | PM&R Progress Note ---
Subjective HPI/CC On Admission Date Seen by Provider: Oct 30, 2019 Time Seen by Provider: 11:15 Subjective/Events-last exam Patient having a good day again today and feels very optimistic MDI will be scheduled for BID Wound care will obtain medicated pads to place on her abrasions and eschars from the mask on her face Dr Torres has been consulted for the chin eschar to minimize scarring and we appreciate his help BM loose so holding laxatives No O2 is required now completely weaned off Overall having a great recovery Magic mouthwash working well for her and the tongue ulcer is much better Decreased dyspnea Checked meds and labs Reviewed therapy notes Reviewed therapy notes Review of Systems General: Fatigue Pulmonary: Dyspnea Neurological: Weakness, Numbness, Incoordination Objective Exam Vital Signs Vital Signs Date Time Temp Pulse Resp B/P (MAP) Pulse Ox O2 Delivery O2 Flow Rate FiO2 10/30/19 08:05 Room Air 10/30/19 05:00 37.2 54 18 118/75 (89) 98 Capillary Refill : Less Than 3 Seconds General Appearance: No Apparent Distress, WD/WN, Chronically ill, Obese HEENT: PERRL/EOMI, Normal ENT Inspection, Pharynx Normal Neck: Full Range of Motion, Normal Inspection, Non Tender, Supple, Carotid Bruit Respiratory: Chest Non Tender, Lungs Clear, Normal Breath Sounds, No Accessory Muscle Use, No Respiratory Distress Cardiovascular: Regular Rate, Rhythm, No Edema, No Gallop, No JVD, No Murmur, Normal Peripheral Pulses Gastrointestinal: Normal Bowel Sounds, No Organomegaly, No Pulsatile Mass, Non Tender, Soft Back: Normal Inspection, No CVA Tenderness, No Vertebral Tenderness Extremity: Normal Capillary Refill, Normal Inspection, Normal Range of Motion, Non Tender, No Calf Tenderness, No Pedal Edema Neurologic/Psychiatric: Alert, Oriented x3, No Motor/Sensory Deficits, Normal Mood/Affect, plug wirer II-XII Norm as Tested, Abnormal Gait, Motor Weakness (generalized weakness all extremities 3/5) Skin: Normal Color, Warm/Dry Lymphatic: No Adenopathy Results/Procedures Lab Patient resulted labs reviewed. FIM Transfers Therapy Code Descriptions/Definitions Functional [place] Measure: 0=Not Assessed/NA 4=Minimal Assistance 1=Total Assistance 5=Supervision or Setup 2=Maximal Assistance 6=Modified [place] 3=Moderate Assistance 7=Complete IndependenceSCALE: Activities may be completed with or without assistive devices. 5-Jxthvwqyru-zqpnyuk completes the activity by him/herself with no assistance from a helper. 5-Set-up or Clean-up Assistance-helper sets up or cleans up; patient completes activity. [place] assists only prior to or following the activity. 4-Supervision or Touching Assistance-helper provides verbal cues and/or touching/steadying and/or contact guard assistance as patient completes activity. Assistance may be provided throughout the activity or intermittently. 3-Partial/Moderate Assistance-helper does LESS THAN HALF the effort. [place] lifts, holds or supports trunk or limbs, but provides less than half the effort. 2-Substantial/Maximal Assistance-helper does MORE THAN HALF the effort. [place] lifts or holds trunk or limbs and provides more than half the effort. 6-Oaqdyftsw-ydcdaz does ALL the effort. Patient does none of the effort to complete the activity. Or, the assistance of 2 or more helpers is required for the patient to complete the activity. If activity was not attempted, code reason: 7-Patient Refused. 9-Not Applicable-not attempted and the patient did not perform the activity before the current illness, exacerbation or injury. 10-Not Attempted due to Environmental Limitations-(lack of equipment, weather restraints, etc.). 88-Not Attempted due to Medical Conditions or Safety Concerns. Roll Left to Right (QC): 5 Sit to Lying (QC): 2 Sit to Stand (QC): 3 Chair/Igi-vb-Vqrmh Xfer(QC): 3 Car Transfer (QC): 2 Gait Training Does the Patient Walk?: No and Walking Goal IS indicated Walk 10 feet (QC): 88 Walk 50 ft with 2 Turns(QC): 88 Walk 150 ft (QC): 88 Walking 10ft/uneven surface-QC: 88 Wheelchair Training Does the Pt Use a Wheelchair?: Yes Wheel 50 ft with 2 turns (QC): 1 Wheel 150 ft (QC): 1 Type of Wheelchair: Manual Stair Training 1 Step (curb) (QC): 88 4 Steps (QC): 88 12 Steps (QC): 88 Balance Picking up an Object (QC): 88 ADL-Treatment Eating (QC): 2 Oral Hygiene (QC): 2 Shower/Bathe Self (QC): 2 Upper Body Dressing (QC): 2 Lower Body Dressing (QC): 1 On/Off Footwear (QC): 2 Toileting Hygiene (QC): 1 Assessment/Plan Assessment and Plan Assess & Plan/Chief Complaint Assessment: Critical illness myopathy Coronavirus s/p treatment and out of isolation s/p VDRF Lovenox for DVT PPx Facial abrasions from vent mask Tongue ulcer placed on magic mouthwash Plan: IRF protocol Monitor labs Dramatic improvement Wound care to facial wounds from vent mask Magic mouthwash Hold laxatives prn (1) Myopathy (2) Coronavirus infection Status: Acute JASE MAGALLANES DO Oct 30, 2019 11:04
--- NOTE | 2019-10-30 11:17 | Physical Therapy Daily Note ---
PT Daily Note-Current Subjective Pt up in chair, agreeable. Reports she is "sore" today, woken up with (B) ankle pain this AM, resolved at time of treatment. Mental Status Patient Orientation: Person, Place, Time, Situation Transfers SCALE: Activities may be completed with or without assistive devices. 0-Jqvgnouvxw-bgblhuv completes the activity by him/herself with no assistance from a helper. 5-Set-up or Clean-up Assistance-helper sets up or cleans up; patient completes activity. [place] assists only prior to or following the activity. 4-Supervision or Touching Assistance-helper provides verbal cues and/or touching/steadying and/or contact guard assistance as patient completes activity. Assistance may be provided throughout the activity or intermittently. 3-Partial/Moderate Assistance-helper does LESS THAN HALF the effort. [place] lifts, holds or supports trunk or limbs, but provides less than half the effort. 2-Substantial/Maximal Assistance-helper does MORE THAN HALF the effort. [place] lifts or holds trunk or limbs and provides more than half the effort. 9-Mrwznsjzv-aldlev does ALL the effort. Patient does none of the effort to complete the activity. Or, the assistance of 2 or more helpers is required for the patient to complete the activity. If activity was not attempted, code reason: 7-Patient Refused. 9-Not Applicable-not attempted and the patient did not perform the activity before the current illness, exacerbation or injury. 10-Not Attempted due to Environmental Limitations-(lack of equipment, weather restraints, etc.). 88-Not Attempted due to Medical Conditions or Safety Concerns. Sit to Stand (QC): 4 Chair/Jvh-gt-Qcbrv Xfer(QC): 4 Weight Bearing Right Lower Extremity: Right Full Weight Bearing Left Lower Extremity: Left Full Weight Bearing Gait Training Does the Patient Walk?: Yes Distance: 16 Walk 10 feet (QC): 4 Gait Persons Needed: 1 Gait Assistive Device: Parallel Bars Pt ambulated 8' x 3, 16' x 2 in // bars with close CGA x 1. Pt ambulated with only light use of UE on // bars, appropriate step length and height. Slow, guarded but no LOB, no knee buckling. Seated recovery breaks required between trials. Wheelchair Training Does the Pt Use a Wheelchair?: Yes Exercises Seated Therapy Exercises: Reaching activity Seated UE reaching task with OT, PT emphasis on core stabilization, posture with task. Treatments Gait training in // bars, UE reaching task with emphasis from PT on core stabilization, posture. Co-treat with OT due to decreased functional activity t olerance; OT addressing UE tasks, PT addressing LE, transfers, posture. Assessment Current Status: Excellent Progress Pt tolerated very well. Marked improvement in functional activity tolerance and static, dynamic standing balance this date. Significant fatigue with gait trials and seated reaching task but overall good tolerance. PT Short Term Goals Short Term Goals Time Frame: Nov 04, 2019 Roll Left & Right: 3 Sit to lyin Lying to sitting on side of be: 3 Sit to stand: 3 Chair/exo-ob-xzhxc transfer: 3 Walk 10 feet: 3 PT Asphalt Smoother Goals Long-Term Goals PT Long-Term Goals Time Frame: November 18, 2019 Roll Left & Right (QC): 4 Sit to Lying (QC): 4 Lying-Sitting on Side/Bed(QC): 4 Sit to Stand (QC): 4 Chair/Wto-ei-Fnyke Xfer(QC): 4 Toilet Transfer (QC): 4 Car Transfer (QC): 4 Does the Patient Walk: Yes Walk 10 feet (QC): 4 Walk 50ft with 2 Turns (QC): 4 Walk 150 ft (QC): 88 Walking 10ft on Uneven Surface: 88 1 Step (curb) (QC): 3 4 Steps (QC): 88 12 Steps (QC): 88 Picking up an Object (QC): 88 Wheel 50 feet with 2 turns (QC: 6 Wheel 150 feet: 6 PT Plan Problem List Problem List: Activity Tolerance, Functional Strength, Safety, Balance, Gait, Transfer, Bed Mobility Treatment/Plan Treatment Plan: Continue Plan of Care Treatment Plan: Bed Mobility, Education, Functional Activity Shalonda, Functional Strength, Group Therapy, Gait, Safety, Therapeutic Exercise, Transfers Treatment Duration: November 18, 2019 Frequency: Modified Program (IRF) Estimated Hrs Per Day: 1 hour per day Patient and/or Family Agrees t: Yes Safety Risks/Education Patient Education: Gait Training Teaching Recipient: Patient Teaching Methods: Discussion Response to Teaching: Return Demonstration Time/GCodes Time In: 0900 Time Out: 1000 Total Billed Treatment Time: 60 Total Billed Treatment 1, GT x 40', FA x 20' KIAH AVILES DPT Oct 30, 2019 11:17
--- NOTE | 2019-10-30 12:54 | Occupational Ther Daily Note ---
OT Current Status-Daily Note Subjective Pt sitting in chair, agrees to therapy. ADL-Treatment Therapy Code Descriptions/Definitions Functional [place] Measure: 0=Not Assessed/NA 4=Minimal Assistance 1=Total Assistance 5=Supervision or Setup 2=Maximal Assistance 6=Modified [place] 3=Moderate Assistance 7=Complete IndependenceSCALE: Activities may be completed with or without assistive devices. 4-Cniqdogfzh-vmxqpil completes the activity by him/herself with no assistance from a helper. 5-Set-up or Clean-up Assistance-helper sets up or cleans up; patient completes activity. [place] assists only prior to or following the activity. 4-Supervision or Touching Assistance-helper provides verbal cues and/or touching/steadying and/or contact guard assistance as patient completes activity. Assistance may be provided throughout the activity or intermittently. 3-Partial/Moderate Assistance-helper does LESS THAN HALF the effort. [place] lifts, holds or supports trunk or limbs, but provides less than half the effort. 2-Substantial/Maximal Assistance-helper does MORE THAN HALF the effort. [place] lifts or holds trunk or limbs and provides more than half the effort. 8-Lxsbtikel-pymsst does ALL the effort. Patient does none of the effort to c omplete the activity. Or, the assistance of 2 or more helpers is required for the patient to complete the activity. If activity was not attempted, code reason: 7-Patient Refused. 9-Not Applicable-not attempted and the patient did not perform the activity before the current illness, exacerbation or injury. 10-Not Attempted due to Environmental Limitations-(lack of equipment, weather restraints, etc.). 88-Not Attempted due to Medical Conditions or Safety Concerns. Other Treatment Co-treat with PT secondary to impaired activity tolerance, strength, and mobility. OT focusing on UE placement during mobility, reaching task, and UE positioning. PT focusing in mobility, transfers, and balance. Pt sitting in chair. Stand pivot transfer to w/c. To therapy gym via w/c. Pt transferred w/c<-> mat. Pt performed sit to stand from edge of mat x6 trials to increase strength and safety for functional transfers. Rest breaks as needed secondary to fatigue. Pt ambulated in parallel bars to increase mobility and activity tolerance. Pt has significant fatigue with gait, requires seated rest breaks between trials. Pt completed seated UE task to promote reaching, ROM, and coordination/manipulation skills. Pt able to place 25 resistance pegs into pegboard with increased time. Pt fatigues quickly with UE activity and requires rest breaks, but is able to complete task without assist. Pt returned to room, sitting in chair with needs met after session. OT Short Term Goals Short Term Goals Time Frame: Nov 04, 2019 Oral hygiene: 3 Toileting hygiene: 3 Upper body dressin Lower body dressin OT Fpc Goals Manager Agricultural Goals Time Frame: November 18, 2019 Eating (QC): 6 Oral Hygiene (QC): 6 Toileting Hygiene (QC): 5 Shower/Bathe Self (QC): 4 Upper Body Dressing (QC): 5 Lower Body Dressing (QC): 5 On/Off Footwear (QC): 5 Additional Goals: 1-Demonstrate ADL Tasks, 2-Verbalize Understanding, 3- ImproveStrength/[place] 1=Demonstrate adherence to instructed precautions during ADL tasks. 2=Patient will verbalize/demonstrate understanding of assistive devices/modifications for ADL. 3=Patient will improve strength/tolerance for activity to enable patient to perform ADL's. OT Education/Plan Discharge Recommendations Plan/Recommendations: Continue POC Treatment Plan/Plan of Care Patient would benefit from OT for education, treatment and training to promote independence in ADL's, mobility, safety and/or upper extremity function for ADL's. Plan of Care: ADL Retraining, Functional Mobility, Group Exercise/Act as Ind, UE Funct Exercise/Act, UE Neuromus Re-Ed/Coord Treatment Duration: November 18, 2019 Frequency: Modified Program (IRF) Estimated Hrs Per Day: Other Rehab Potential: Fair Time/GCodes Start Time: 09:00 Stop Time: 10:00 Total Time Billed (hr/min): 60 Billed Treatment Time 1 visit, FAx4(60minutes) Co-treat with PT 60minutes URIEL REILLY OT Oct 30, 2019 12:54
--- NOTE | 2019-10-30 14:24 | Physical Therapy Daily Note ---
PT Daily Note-Current Subjective Pt up in chair, reports she is still "sore" but agreeable. Mental Status Patient Orientation: Person, Place, Time, Situation Transfers SCALE: Activities may be completed with or without assistive devices. 0-Xlmkwfaxdy-ytvzoqm completes the activity by him/herself with no assistance from a helper. 5-Set-up or Clean-up Assistance-helper sets up or cleans up; patient completes a ctivity. [place] assists only prior to or following the activity. 4-Supervision or Touching Assistance-helper provides verbal cues and/or touching/steadying and/or contact guard assistance as patient completes activity. Assistance may be provided throughout the activity or intermittently. 3-Partial/Moderate Assistance-helper does LESS THAN HALF the effort. [place] lifts, holds or supports trunk or limbs, but provides less than half the effort. 2-Substantial/Maximal Assistance-helper does MORE THAN HALF the effort. [place] lifts or holds trunk or limbs and provides more than half the effort. 3-Sbxletiau-sfmgqc does ALL the effort. Patient does none of the effort to complete the activity. Or, the assistance of 2 or more helpers is required for the patient to complete the activity. If activity was not attempted, code reason: 7-Patient Refused. 9-Not Applicable-not attempted and the patient did not perform the activity before the current illness, exacerbation or injury. 10-Not Attempted due to Environmental Limitations-(lack of equipment, weather restraints, etc.). 88-Not Attempted due to Medical Conditions or Safety Concerns. Sit to Stand (QC): 4 Chair/Hgs-gx-Ylrta Xfer(QC): 4 Weight Bearing Right Lower Extremity: Right Full Weight Bearing Left Lower Extremity: Left Full Weight Bearing Gait Training Does the Patient Walk?: Yes Distance: 150 Walk 10 feet (QC): 4 Walk 50 ft with 2 Turns(QC): 4 Walk 150 ft (QC): 4 Gait Persons Needed: 2 Gait Assistive Device: FWW Pt ambulated 150' x 2 with FWW with close CGA + WCH following. Slow gait, no LOB or buckling this date. Wheelchair Training Does the Pt Use a Wheelchair?: No Exercises NuStep Minutes: 10 NuStep Workload: 1 Treatments Gait training with FWW, NuStep for functional strengthening, functional activity tolerance. Up in recliner post session, needs met. Assessment Current Status: Excellent Progress Pt tolerated well. Steadily improving functional activity tolerance, balance and functional strength. PT Short Term Goals Short Term Goals Time Frame: Nov 04, 2019 Roll Left & Right: 3 Sit to lyin Lying to sitting on side of be: 3 Sit to stand: 3 Chair/lhd-or-upfck transfer: 3 Walk 10 feet: 3 PT Mcfp Goals [place] Hospitalist Goals PT [place] Hospitalist Goals Time Frame: November 18, 2019 Roll Left & Right (QC): 4 Sit to Lying (QC): 4 Lying-Sitting on Side/Bed(QC): 4 Sit to Stand (QC): 4 Chair/Dej-nu-Ztiln Xfer(QC): 4 Toilet Transfer (QC): 4 Car Transfer (QC): 4 Does the Patient Walk: Yes Walk 10 feet (QC): 4 Walk 50ft with 2 Turns (QC): 4 Walk 150 ft (QC): 88 Walking 10ft on Uneven Surface: 88 1 Step (curb) (QC): 3 4 Steps (QC): 88 12 Steps (QC): 88 Picking up an Object (QC): 88 Wheel 50 feet with 2 turns (QC: 6 Wheel 150 feet: 6 PT Plan Problem List Problem List: Activity Tolerance, Functional Strength, Safety, Balance, Gait, Transfer, Bed Mobility Treatment/Plan Treatment Plan: Continue Plan of Care Treatment Plan: Bed Mobility, Education, Functional Activity Shalonda, Functional Strength, Group Therapy, Gait, Safety, Therapeutic Exercise, Transfers Treatment Duration: November 18, 2019 Frequency: Modified Program (IRF) Estimated Hrs Per Day: 1 hour per day Patient and/or Family Agrees t: Yes Time/GCodes Time In: 1300 Time Out: 1335 Total Billed Treatment Time: 35 Total Billed Treatment 1, GT x 20, Ex x 10 KIAH AVILES DPAman Oct 30, 2019 14:24
--- NOTE | 2019-10-30 14:41 | Occupational Ther Daily Note ---
OT Current Status-Daily Note Subjective Pt sitting in chair, agrees to treatment. Pt reports "soreness" in legs. ADL-Treatment Pt completed oral care while seated in chair. Pt able to open toothpaste and place on toothbrush. Pt then able to brush teeth with SBA with elbows supported on armrests of chair. Washed face with SBA. Sit to stand with min assist. Gait to restroom with FWW. Pt transferred to [facility] over toilet with CGA. Pt able to complete toileting hygiene, but requires assist for clothing management. Sit to stand with min assist from toilet. Stood at sink to wash hands with min assist for balance. Increased time for ADL tasks. Therapy Code Descriptions/Definitions Functional [place] Measure: 0=Not Assessed/NA 4=Minimal Assistance 1=Total Assistance 5=Supervision or Setup 2=Maximal Assistance 6=Modified [place] 3=Moderate Assistance 7=Complete IndependenceSCALE: Activities may be completed with or without assistive devices. 2-Nhhhdltlaj-lvdwusi completes the activity by him/herself with no assistance from a helper. 5-Set-up or Clean-up Assistance-helper sets up or cleans up; patient completes activity. [place] assists only prior to or following the activity. 4-Supervision or Touching Assistance-helper provides verbal cues and/or touching/steadying and/or contact guard assistance as patient completes activity. Assistance may be provided throughout the activity or intermittently. 3-Partial/Moderate Assistance-helper does LESS THAN HALF the effort. [place] lift s, holds or supports trunk or limbs, but provides less than half the effort. 2-Substantial/Maximal Assistance-helper does MORE THAN HALF the effort. [place] lifts or holds trunk or limbs and provides more than half the effort. 4-Pymtvrlua-rfqyvj does ALL the effort. Patient does none of the effort to complete the activity. Or, the assistance of 2 or more helpers is required for the patient to complete the activity. If activity was not attempted, code reason: 7-Patient Refused. 9-Not Applicable-not attempted and the patient did not perform the activity before the current illness, exacerbation or injury. 10-Not Attempted due to Environmental Limitations-(lack of equipment, weather restraints, etc.). 88-Not Attempted due to Medical Conditions or Safety Concerns. Oral Hygiene (QC): 4 Toileting Hygiene (QC): 3 Toilet Transfer (QC): 3 Other Treatment Pt completed bilateral UE ROM exercises to increase strength for ADLs and transfers. Pt requires AAROM for shoulder movement and fatigues quickly, requiring rest breaks. Pt performed elbow, wrist, and finger ROM with rest breaks between exercises. Bilateral hand slitter operator exercises using mild resistance therapy foam. Pt transferred to EOB with min assist. Sit to supine with SBA. Pt positioned in bed with needs met after session. OT Short Term Goals Short Term Goals Time Frame: Nov 04, 2019 Oral hygiene: 3 Toileting hygiene: 3 Upper body dressin Lower body dressin OT Litigation Coordinator Goals Litigation Coordinator Goals Time Frame: November 18, 2019 Eating (QC): 6 Oral Hygiene (QC): 6 Toileting Hygiene (QC): 5 Shower/Bathe Self (QC): 4 Upper Body Dressing (QC): 5 Lower Body Dressing (QC): 5 On/Off Footwear (QC): 5 Additional Goals: 1-Demonstrate ADL Tasks, 2-Verbalize Understanding, 3- ImproveStrength/[place]onda 1=Demonstrate adherence to instructed precautions during ADL tasks. 2=Patient will verbalize/demonstrate understanding of assistive devices/modifications for ADL. 3=Patient will improve strength/tolerance for activity to enable patient to perform ADL's. OT Education/Plan Discharge Recommendations Plan/Recommendations: Continue POC Treatment Plan/Plan of Care Patient would benefit from OT for education, treatment and training to promote independence in ADL's, mobility, safety and/or upper extremity function for ADL's. Plan of Care: ADL Retraining, Functional Mobility, Group Exercise/Act as Ind, UE Funct Exercise/Act, UE Neuromus Re-Ed/Coord Treatment Duration: November 18, 2019 Frequency: Modified Program (IRF) Estimated Hrs Per Day: Other Rehab Potential: Fair Time/GCodes Start Time: 13:35 Stop Time: 14:15 Total Time Billed (hr/min): 40 Billed Treatment Time 1 visit, ADLx2(25minutes), EX(15minutes) URIEL REILLY OT Oct 30, 2019 14:41
[2019-10-30] MEDS: ARTIFICAL TEARS 0.4 ML UNIT DOSE (REFRESH PLUS) OU PRN ×2 (17:20→20:42)
[2019-10-30 18:00] VITALS: BP 143/88
[2019-10-30] MEDS: MELATONIN 3 MG TABLET PO PRN (20:42)
[2019-10-30] MEDS: CATHETER FLUSH 10 ML SYR IV SCH (21:04)
[2019-10-31 05:07] VITALS: BP 131/76
[2019-10-31] MEDS: ASCORBIC ACID (VIT C) 500 MG TABLET PO SCH ×2 (06:05→17:26)
[2019-10-31] MEDS: CATHETER FLUSH 10 ML SYR IV SCH ×3 (06:05→20:23)
[2019-10-31] MEDS: ZINC SULFATE 220 MG CAPSULE PO SCH (08:51)
[2019-10-31] MEDS: MAGIC MOUTHWASH (ADULT) PO SCH ×8 (08:52→20:25)
[2019-10-31] MEDS: ENOXAPARIN 40 MG/0.4 ML (LOVENOX) SYR SC SCH ×2 (08:52→20:23)
[2019-10-31] MEDS: VITAMIN D3 25 MCG (1,000 UNITS) TABLET PO SCH (08:52)
[2019-10-31] MEDS: BACITRACIN OINTMENT 28 GM TUBE TOP SCH ×2 (08:53→20:24)
[2019-10-31] MEDS: DOCUSATE SODIUM 100 MG (COLACE) CAP PO SCH ×2 (09:16→20:25)
[2019-10-31] MEDS: polyethylene glycoL POWDER 17 GM (MIRALAX) PACK PO SCH ×2 (09:17→20:25)
[2019-10-31] MEDS: SENNA W/DOCUSATE (SENOKOT S) TABLET PO SCH ×2 (09:17→20:25)
--- NOTE | 2019-10-31 10:12 | Occupational Ther Daily Note ---
OT Current Status-Daily Note Subjective No pain reported. Pt. verbalizes that her hands are still weak, and she has difficulty with functional tasks. Appearance Pt. is up in chair. Agrees to work with OT. Mental Status/Objective Patient Orientation: Person, Place, Time, Situation ADL-Treatment Therapy Code Descriptions/Definitions Functional [place] Measure: 0=Not Assessed/NA 4=Minimal Assistance 1=Total Assistance 5=Supervision or Setup 2=Maximal Assistance 6=Modified [place] 3=Moderate Assistance 7=Complete IndependenceSCALE: Activities may be completed with or without assistive devices. 6-Iweiafiazw-yxtjqkn completes the activity by him/herself with no assistance from a helper. 5-Set-up or Clean-up Assistance-helper sets up or cleans up; patient completes activity. [place] assists only prior to or following the activity. 4-Supervision or Touching Assistance-helper provides verbal cues and/or touching/steadying and/or contact guard assistance as patient completes activity. Assistance may be provided throughout the activity or intermittently. 3-Partial/Moderate Assistance-helper does LESS THAN HALF the effort. [place] lifts, holds or supports trunk or limbs, but provides less than half the effort. 2-Substantial/Maximal Assistance-helper does MORE THAN HALF the effort. [place] lifts or holds trunk or limbs and provides more than half the effort. 0-Kgjeovjpm-kjsiyr does ALL the effort. Patient does none of the effort to complete the activity. Or, the assistance of 2 or more helpers is required for the patient to complete the activity. If activity was not attempted, code reason: 7-Patient Refused. 9-Not Applicable-not attempted and the patient did not perform the activity before the current illness, exacerbation or injury. 10-Not Attempted due to Environmental Limitations-(lack of equipment, weather restraints, etc.). 88-Not Attempted due to Medical Conditions or Safety Concerns. Pt. up in chair. Completed bilateral UE exercises and ROM. Pt. has limited active shoulder movement. OT provided gentle PROM x 10 reps shoulder flexion /external abduction. Pt. able to complete elbow flexion exercises. Pt. able to extend wrists to neutral, so OT provided gentle PROM to full extension. Completed hand squeeze exercises x 10 reps. Pt. then practiced opening lotion and toiletry containers. Pt. able to do this but this was difficult. Pt. verbalizes that she is able to feed herself, but unable to bring her hands to her head to brush her hair. Pt. educated on self ROM exercises. Pt. issued deck of cards, and pen/paper. Pt. encouraged to practice writing, as well as flipping cards for continued fine motor coordination and strengthening. Pt. verbalizes understanding. All needs met up in chair. Education OT Patient Education: Correct positioning, Exercise program, Modified ADL techniques, Progress toward Goal/Update tx plan, Purpose of tx/functional activities, Reviewed precautions, Rehab process Teaching Recipient: Patient Teaching Methods: Demonstration, Discussion Response to Teaching: Verbalize Understanding, Return Demonstration OT Short Term Goals Short Term Goals Time Frame: Nov 04, 2019 Oral hygiene: 3 Toileting hygiene: 3 Upper body dressin Lower body dressin OT Mcfp Goals Catalyst Supervisor Goals Time Frame: November 18, 2019 Eating (QC): 6 Oral Hygiene (QC): 6 Toileting Hygiene (QC): 5 Shower/Bathe Self (QC): 4 Upper Body Dressing (QC): 5 Lower Body Dressing (QC): 5 On/Off Footwear (QC): 5 Additional Goals: 1-Demonstrate ADL Tasks, 2-Verbalize Understanding, 3-I mproveStrength/[place]onda 1=Demonstrate adherence to instructed precautions during ADL tasks. 2=Patient will verbalize/demonstrate understanding of assistive devices/modifications for ADL. 3=Patient will improve strength/tolerance for activity to enable patient to perform ADL's. OT Education/Plan Problem List/Assessment Assessment: Decreased Activ Tolerance, Decreased UE Strength, Impaired Coordination, Impaired I ADL's, Impaired Self-Care Skills, Restricted Funct UE ROM Discharge Recommendations Plan/Recommendations: Continue POC Therapy Discharge Recommendati: Home & Family, Post Acute OT Treatment Plan/Plan of Care Treatment,Training & Education: Yes Patient would benefit from OT for education, treatment and training to promote independence in ADL's, mobility, safety and/or upper extremity function for ADL's. Plan of Care: ADL Retraining, Functional Mobility, Group Exercise/Act as Ind, UE Funct Exercise/Act, UE Neuromus Re-Ed/Coord Treatment Duration: November 18, 2019 Frequency: Modified Program (IRF) Estimated Hrs Per Day: Other Agreement: Yes Rehab Potential: Fair Time/GCodes Start Time: 09:10 Stop Time: 09:40 Total Time Billed (hr/min): 30 Billed Treatment Time 1, FA x 15minutes, Ex x 15minutes JANNA LUNA OT Oct 31, 2019 10:12
--- NOTE | 2019-10-31 10:57 | Physical Therapy Daily Note ---
PT Daily Note-Current Subjective Pt. in bathroom, assistance needed for george-care. Pt. agrees to PT. Mental Status Patient Orientation: Person, Place, Time, Situation Transfers SCALE: Activities may be completed with or without assistive devices. 9-Wehseeshyt-ejyceqr completes the activity by him/herself with no assistance from a helper. 5-Set-up or Clean-up Assistance-helper sets up or cleans up; patient completes activity. [place] assists only prior to or following the activity. 4-Supervision or Touching Assistance-helper provides verbal cues and/or touching/steadying and/or contact guard assistance as patient completes activity. Assistance may be provided throughout the activity or intermittently. 3-Partial/Moderate Assistance-helper does LESS THAN HALF the effort. [place] lifts, holds or supports trunk or limbs, but provides less than half the effort. 2-Substantial/Maximal Assistance-helper does MORE THAN HALF the effort. [place] lifts or holds trunk or limbs and provides more than half the effort. 8-Uyonxhifs-omamhw does ALL the effort. Patient does none of the effort to complete the activity. Or, the assistance of 2 or more helpers is required for the patient to complete the activity. If activity was not attempted, code reason: 7-Patient Refused. 9-Not Applicable-not attempted and the patient did not perform the activity before the current illness, exacerbation or injury. 10-Not Attempted due to Environmental Limitations-(lack of equipment, weather restraints, etc.). 88-Not Attempted due to Medical Conditions or Safety Concerns. Sit to Stand (QC): 4 Toilet Transfer (QC): 3 dependent for pericare and to pull up undergarments and pants following toileting Weight Bearing Right Lower Extremity: Right Full Weight Bearing Left Lower Extremity: Left Full Weight Bearing Gait Training Does the Patient Walk?: Yes Distance: x 100 ft, x 200 ft Walk 10 feet (QC): 4 Gait Persons Needed: 1 Gait Assistive Device: FWW follow with w/c Exercises NuStep Minutes: 10 NuStep Workload: 4 Treatments gait training, LE ROM and strengthening Assessment Current Status: Good Progress Pt.'s mobility is progressing very well with therapy. Able to increase ambulation distance but she did fatigue at end of gait. Pt. up in bedside chair post session with call light and all needs met. PT Short Term Goals Short Term Goals Time Frame: Nov 04, 2019 Roll Left & Right: 3 Sit to lyin Lying to sitting on side of be: 3 Sit to stand: 3 Chair/vgd-lx-pzyzu transfer: 3 Walk 10 feet: 3 PT Custodial Goals Custodial Goals PT [place] Goals Time Frame: November 18, 2019 Roll Left & Right (QC): 4 Sit to Lying (QC): 4 Lying-Sitting on Side/Bed(QC): 4 Sit to Stand (QC): 4 Chair/Wwf-fg-Ddlou Xfer(QC): 4 Toilet Transfer (QC): 4 Car Transfer (QC): 4 Does the Patient Walk: Yes Walk 10 feet (QC): 4 Walk 50ft with 2 Turns (QC): 4 Walk 150 ft (QC): 88 Walking 10ft on Uneven Surface: 88 1 Step (curb) (QC): 3 4 Steps (QC): 88 12 Steps (QC): 88 Picking up an Object (QC): 88 Wheel 50 feet with 2 turns (QC: 6 Wheel 150 feet: 6 PT Plan Treatment/Plan Treatment Plan: Continue Plan of Care Treatment Plan: Bed Mobility, Education, Functional Activity Shalonda, Functional Strength, Group Therapy, Gait, Safety, Therapeutic Exercise, Transfers Treatment Duration: November 18, 2019 Frequency: Modified Program (IRF) Estimated Hrs Per Day: 1 hour per day Patient and/or Family Agrees t: Yes Time/GCodes Time In: 815 Time Out: 845 Total Billed Treatment Time: 30 Total Billed Treatment 1, GT 15', Ex 10', (FA 5') ALYSSA DUQUE PT Oct 31, 2019 10:57
--- NOTE | 2019-10-31 12:11 | PM&R Progress Note ---
Subjective HPI/CC On Admission Date Seen by Provider: Oct 31, 2019 Time Seen by Provider: 12:15 Subjective/Events-last exam Patient having a good day again today and feels very optimistic MDI is scheduled for BID Daughter on facetime asked if she should be tested for COVID-19 again and I told her there is no clinical basis that is required and if that rec comes about per experts we will do that but there is no evidence she has active infection Weakness noted Wound care will obtain medicated pads to place on her abrasions and eschars from the mask on her face Dr Torres has been consulted for the chin eschar to minimize scarring and we appreciate his help BM loose so adding Probiotic and she is open to that No O2 is required now completely weaned off even at night Overall having a great recovery Magic mouthwash working well and tongue less sore Decreased dyspnea Checked meds and labs Reviewed therapy notes Reviewed therapy notes Review of Systems General: Fatigue Neurological: Weakness, Numbness, Incoordination Objective Exam Vital Signs Vital Signs Date Time Temp Pulse Resp B/P (MAP) Pulse Ox O2 Delivery O2 Flow Rate FiO2 10/31/19 09:00 Room Air 10/31/19 05:07 36.8 61 16 131/76 (94) 96 Capillary Refill : Less Than 3 Seconds General Appearance: No Apparent Distress, WD/WN, Chronically ill, Obese HEENT: PERRL/EOMI, Normal ENT Inspection, Pharynx Normal Neck: Full Range of Motion, Normal Inspection, Non Tender, Supple, Carotid Bruit Respiratory: Chest Non Tender, Lungs Clear, Normal Breath Sounds, No Accessory Muscle Use, No Respiratory Distress Cardiovascular: Regular Rate, Rhythm, No Edema, No Gallop, No JVD, No Murmur, Normal Peripheral Pulses Gastrointestinal: Normal Bowel Sounds, No Organomegaly, No Pulsatile Mass, Non Tender, Soft Back: Normal Inspection, No CVA Tenderness, No Vertebral Tenderness Extremity: Normal Capillary Refill, Normal Inspection, Normal Range of Motion, Non Tender, No Calf Tenderness, No Pedal Edema Neurologic/Psychiatric: Alert, Oriented x3, No Motor/Sensory Deficits, Normal Mood/Affect, slicing machine feeder II-XII Norm as Tested, Abnormal Gait, Motor Weakness (generalized weakness all extremities 3/5) Skin: Normal Color, Warm/Dry Lymphatic: No Adenopathy Results/Procedures Lab Patient resulted labs reviewed. FIM Transfers Therapy Code Descriptions/Definitions Functional [place] Measure: 0=Not Assessed/NA 4=Minimal Assistance 1=Total Assistance 5=Supervision or Setup 2=Maximal Assistance 6=Modified [place] 3=Moderate Assistance 7=Complete IndependenceSCALE: Activities may be completed with or without assistive devices. 2-Fgwiwielkb-czunmjv completes the activity by him/herself with no assistance from a helper. 5-Set-up or Clean-up Assistance-helper sets up or cleans up; patient completes activity. [place] assists only prior to or following the activity. 4-Supervision or Touching Assistance-helper provides verbal cues and/or touching/steadying and/or contact guard assistance as patient completes activity. Assistance may be provided throughout the activity or intermittently. 3-Partial/Moderate Assistance-helper does LESS THAN HALF the effort. [place] lifts, holds or supports trunk or limbs, but provides less than half the effort. 2-Substantial/Maximal Assistance-helper does MORE THAN HALF the effort. [place] lifts or holds trunk or limbs and provides more than half the effort. 2-Duckhehwi-swxeol does ALL the effort. Patient does none of the effort to complete the activity. Or, the assistance of 2 or more helpers is required for the patient to complete the activity. If activity was not attempted, code reason: 7-Patient Refused. 9-Not Applicable-not attempted and the patient did not perform the activity before the current illness, exacerbation or injury. 10-Not Attempted due to Environmental Limitations-(lack of equipment, weather restraints, etc.). 88-Not Attempted due to Medical Conditions or Safety Concerns. Roll Left to Right (QC): 5 Sit to Lying (QC): 2 Sit to Stand (QC): 4 Chair/Wtq-pd-Kopaq Xfer(QC): 4 Car Transfer (QC): 2 Gait Training Does the Patient Walk?: Yes Distance: x 100 ft, x 200 ft Walk 10 feet (QC): 4 Walk 50 ft with 2 Turns(QC): 4 Walk 150 ft (QC): 4 Walking 10ft/uneven surface-QC: 88 Gait Persons Needed: 1 Gait Assistive Device: FWW Wheelchair Training Does the Pt Use a Wheelchair?: No Wheel 50 ft with 2 turns (QC): 1 Wheel 150 ft (QC): 1 Type of Wheelchair: Manual Stair Training 1 Step (curb) (QC): 88 4 Steps (QC): 88 12 Steps (QC): 88 Balance Picking up an Object (QC): 88 ADL-Treatment Eating (QC): 2 Oral Hygiene (QC): 4 Shower/Bathe Self (QC): 2 Upper Body Dressing (QC): 2 Lower Body Dressing (QC): 1 On/Off Footwear (QC): 2 Toileting Hygiene (QC): 3 Toilet Transfer (QC): 3 Assessment/Plan Assessment and Plan Assess & Plan/Chief Complaint Assessment: Critical illness myopathy Coronavirus s/p treatment and out of isolation s/p VDRF Lovenox for DVT PPx Facial abrasions from vent mask Tongue ulcer placed on magic mouthwash Plan: IRF protocol Monitor labs Dramatic improvement Wound care to facial wounds from vent mask Magic mouthwash Probiotic (1) Myopathy (2) Coronavirus infection Status: Acute JASE MAGALLANES DO Oct 31, 2019 12:11
[2019-10-31] MEDS: ARTIFICAL TEARS 0.4 ML UNIT DOSE (REFRESH PLUS) OU PRN (13:17)
[2019-10-31] MEDS: LACTOBACILLUS ACIDOPHILUS (PROBIOTIC) CAPSULE PO SCH ×2 (13:28→17:28)
[2019-10-31 18:02] VITALS: BP 132/79
[2019-10-31] MEDS: MELATONIN 3 MG TABLET PO PRN (20:23)
[2019-11-01 05:27] VITALS: BP 124/81
[2019-11-01] MEDS: CATHETER FLUSH 10 ML SYR IV SCH ×3 (06:25→20:23)
[2019-11-01] MEDS: ASCORBIC ACID (VIT C) 500 MG TABLET PO SCH ×2 (06:25→17:44)
[2019-11-01] MEDS: ACETAMINOPHEN 325 MG TABLET PO PRN (06:34)
[2019-11-01] MEDS: DOCUSATE SODIUM 100 MG (COLACE) CAP PO SCH ×2 (09:00→20:24)
[2019-11-01] MEDS: SENNA W/DOCUSATE (SENOKOT S) TABLET PO SCH ×2 (09:00→20:25)
[2019-11-01] MEDS: polyethylene glycoL POWDER 17 GM (MIRALAX) PACK PO SCH ×2 (09:00→20:25)
[2019-11-01] MEDS: ZINC SULFATE 220 MG CAPSULE PO SCH (09:11)
[2019-11-01] MEDS: LACTOBACILLUS ACIDOPHILUS (PROBIOTIC) CAPSULE PO SCH ×3 (09:11→17:44)
[2019-11-01] MEDS: VITAMIN D3 25 MCG (1,000 UNITS) TABLET PO SCH (09:11)
[2019-11-01] MEDS: ENOXAPARIN 40 MG/0.4 ML (LOVENOX) SYR SC SCH ×2 (09:11→20:23)
[2019-11-01] MEDS: BACITRACIN OINTMENT 28 GM TUBE TOP SCH ×2 (09:12→20:24)
[2019-11-01] MEDS: MAGIC MOUTHWASH (ADULT) PO SCH ×8 (09:12→20:25)
--- NOTE | 2019-11-01 13:17 | PM&R Progress Note ---
Subjective HPI/CC On Admission Date Seen by Provider: Nov 01, 2019 Time Seen by Provider: 13:00 Subjective/Events-last exam Patient having a good day again today and feels very optimistic and visiting with her daughter on facetime MDI is scheduled for BID and she is tolerating that well Overall weak and sore in her muscles Wound care will obtain medicated pads to place on her abrasions and eschars from the mask on her face Dr Torres has been consulted for the chin eschar to minimize scarring and we appreciate his help Probiotic is helping the loose stools now No O2 is required now completely weaned off even at night Overall having a great recovery Magic mouthwash working well and tongue less sore Decreased dyspnea Checked meds and labs Reviewed therapy notes Reviewed therapy notes Review of Systems General: Fatigue Pulmonary: Dyspnea Objective Exam Vital Signs Vital Signs Date Time Temp Pulse Resp B/P (MAP) Pulse Ox O2 Delivery O2 Flow Rate FiO2 11/01/19 09:00 Room Air 11/01/19 05:27 36.8 71 16 124/81 (95) 98 Capillary Refill : Less Than 3 Seconds General Appearance: No Apparent Distress, WD/WN, Chronically ill, Obese HEENT: PERRL/EOMI, Normal ENT Inspection, Pharynx Normal Neck: Full Range of Motion, Normal Inspection, Non Tender, Supple, Carotid Bruit Respiratory: Chest Non Tender, Lungs Clear, Normal Breath Sounds, No Accessory Muscle Use, No Respiratory Distress Cardiovascular: Regular Rate, Rhythm, No Edema, No Gallop, No JVD, No Murmur, Normal Peripheral Pulses Gastrointestinal: Normal Bowel Sounds, No Organomegaly, No Pulsatile Mass, Non Tender, Soft Back: Normal Inspection, No CVA Tenderness, No Vertebral Tenderness Extremity: Normal Capillary Refill, Normal Inspection, Normal Range of Motion, Non Tender, No Calf Tenderness, No Pedal Edema Neurologic/Psychiatric: Alert, Oriented x3, No Motor/Sensory Deficits, Normal Mood/Affect, vaccines solutions specialist II-XII Norm as Tested, Abnormal Gait, Motor Weakness (generalized weakness all extremities 3/5) Skin: Normal Color, Warm/Dry Lymphatic: No Adenopathy Results/Procedures Lab Patient resulted labs reviewed. FIM Transfers Therapy Code Descriptions/Definitions Functional [place] Measure: 0=Not Assessed/NA 4=Minimal Assistance 1=Total Assistance 5=Supervision or Setup 2=Maximal Assistance 6=Modified [place] 3=Moderate Assistance 7=Complete IndependenceSCALE: Activities may be completed with or without assistive devices. 7-Imsubuljal-eyabxuc completes the activity by him/herself with no assistance from a helper. 5-Set-up or Clean-up Assistance-helper sets up or cleans up; patient completes activity. [place] assists only prior to or following the activity. 4-Supervision or Touching Assistance-helper provides verbal cues and/or touching/steadying and/or contact guard assistance as patient completes activity. Assistance may be provided throughout the activity or intermittently. 3-Partial/Moderate Assistance-helper does LESS THAN HALF the effort. [place] lifts, holds or supports trunk or limbs, but provides less than half the effort. 2-Substantial/Maximal Assistance-helper does MORE THAN HALF the effort. [place] lifts or holds trunk or limbs and provides more than half the effort. 3-Efoeyrcic-rtuere does ALL the effort. Patient does none of the effort to complete the activity. Or, the assistance of 2 or more helpers is required for the patient to complete the activity. If activity was not attempted, code reason: 7-Patient Refused. 9-Not Applicable-not attempted and the patient did not perform the activity before the current illness, exacerbation or injury. 10-Not Attempted due to Environmental Limitations-(lack of equipment, weather restraints, etc.). 88-Not Attempted due to Medical Conditions or Safety Concerns. Roll Left to Right (QC): 5 Sit to Lying (QC): 2 Sit to Stand (QC): 4 Chair/Oeo-rj-Vyjwh Xfer(QC): 4 Car Transfer (QC): 2 Gait Training Does the Patient Walk?: Yes Distance: x 100 ft, x 200 ft Walk 10 feet (QC): 4 Walk 50 ft with 2 Turns(QC): 4 Walk 150 ft (QC): 4 Walking 10ft/uneven surface-QC: 88 Gait Persons Needed: 1 Gait Assistive Device: FWW Wheelchair Training Does the Pt Use a Wheelchair?: No Wheel 50 ft with 2 turns (QC): 1 Wheel 150 ft (QC): 1 Type of Wheelchair: Manual Stair Training 1 Step (curb) (QC): 88 4 Steps (QC): 88 12 Steps (QC): 88 Balance Picking up an Object (QC): 88 ADL-Treatment Eating (QC): 2 Oral Hygiene (QC): 4 Shower/Bathe Self (QC): 2 Upper Body Dressing (QC): 2 Lower Body Dressing (QC): 1 On/Off Footwear (QC): 2 Toileting Hygiene (QC): 3 Toilet Transfer (QC): 3 Assessment/Plan Assessment and Plan Assess & Plan/Chief Complaint Assessment: Critical illness myopathy Coronavirus s/p treatment and out of isolation s/p VDRF Lovenox for DVT PPx Facial abrasions from vent mask Tongue ulcer placed on magic mouthwash Plan: IRF protocol Monitor labs Dramatic improvement Wound care to facial wounds from vent mask Magic mouthwash Probiotic working well Check labs in am (1) Myopathy (2) Coronavirus infection Status: Acute JASE MAGALLANES DO Nov 01, 2019 13:17
[2019-11-01 17:42] VITALS: BP 142/61
[2019-11-01] MEDS: MELATONIN 3 MG TABLET PO PRN (20:24)
[2019-11-01] MEDS: ARTIFICAL TEARS 0.4 ML UNIT DOSE (REFRESH PLUS) OU PRN (20:24)
[2019-11-02 05:02] VITALS: BP 144/83
[2019-11-02] MEDS: ASCORBIC ACID (VIT C) 500 MG TABLET PO SCH ×2 (06:03→17:56)
[2019-11-02] MEDS: CATHETER FLUSH 10 ML SYR IV SCH ×3 (06:03→22:16)
[2019-11-02 06:27] LABS: BASOPHILS % (AUTO) 0 % (0-10); EOSINOPHILS # (AUTO) 0.1 10^3/uL (0.0-0.3); EOSINOPHILS % (AUTO) 2 % (0-10); HEMATOCRIT 36 % (35-52); HEMOGLOBIN 11.7 G/DL (11.5-16.0); LYMPHOCYTES # (AUTO) 1.6 X 10^3 (1.0-4.0); LYMPHOCYTES % (AUTO) 39 % (12-44); MEAN CORPUSCULAR HEMOGLOBIN 29 PG (25-34); MEAN CORPUSCULAR HGB CONC 33 G/DL (32-36); MEAN CORPUSCULAR VOLUME 89 FL (80-99); MEAN PLATELET VOLUME 11.1 FL (7.4-10.4); MONOCYTES # (AUTO) 0.5 X 10^3 (0.0-1.0); MONOCYTES % (AUTO) 13 % (0-12); NEUTROPHILS # (AUTO) 1.9 X 10^3 (1.8-7.8); NEUTROPHILS % (AUTO) 45 % (42-75); PLATELET COUNT 231 10^3/uL (130-400); RED CELL DISTRIBUTION WIDTH 15.6 % (10.0-14.5); WHITE BLOOD COUNT 4.2 10^3/uL (4.3-11.0)
[2019-11-02 06:44] LABS: ALBUMIN 3.3 GM/DL (3.2-4.5)
[2019-11-02 06:45] LABS: CHLORIDE 112 MMOL/L (98-107); POTASSIUM 3.8 MMOL/L (3.6-5.0); SODIUM 144 MMOL/L (135-145)
[2019-11-02 06:46] LABS: CALCIUM 9.7 MG/DL (8.5-10.1)
[2019-11-02 06:47] LABS: GLUCOSE 87 MG/DL (70-105); TOTAL PROTEIN 5.8 GM/DL (6.4-8.2)
[2019-11-02 06:48] LABS: CARBON DIOXIDE 22 MMOL/L (21-32)
[2019-11-02 06:49] LABS: BILIRUBIN,TOTAL 0.8 MG/DL (0.1-1.0)
[2019-11-02 06:50] LABS: ALKALINE PHOSPHATASE 79 U/L (40-136)
[2019-11-02 06:51] LABS: CREATININE SERUM 0.68 MG/DL (0.60-1.30); GFR ESTIMATED > 60
[2019-11-02 06:52] LABS: BUN/CREATININE RATIO 13
[2019-11-02 06:53] LABS: ALANINE AMINOTRANSFERASE 106 U/L (0-55)
[2019-11-02] MEDS: DOCUSATE SODIUM 100 MG (COLACE) CAP PO SCH ×2 (07:58→21:58)
[2019-11-02] MEDS: polyethylene glycoL POWDER 17 GM (MIRALAX) PACK PO SCH ×2 (07:59→21:58)
[2019-11-02] MEDS: SENNA W/DOCUSATE (SENOKOT S) TABLET PO SCH ×2 (07:59→21:58)
[2019-11-02] MEDS: VITAMIN D3 25 MCG (1,000 UNITS) TABLET PO SCH (08:10)
[2019-11-02] MEDS: ENOXAPARIN 40 MG/0.4 ML (LOVENOX) SYR SC SCH ×2 (08:10→22:05)
[2019-11-02] MEDS: LACTOBACILLUS ACIDOPHILUS (PROBIOTIC) CAPSULE PO SCH ×3 (08:10→17:56)
[2019-11-02] MEDS: BACITRACIN OINTMENT 28 GM TUBE TOP SCH ×2 (08:10→22:05)
[2019-11-02] MEDS: ZINC SULFATE 220 MG CAPSULE PO SCH (08:10)
[2019-11-02] MEDS: MAGIC MOUTHWASH (ADULT) PO SCH ×8 (08:11→22:06)
--- NOTE | 2019-11-02 09:27 | PM&R Progress Note ---
Subjective HPI/CC On Admission Date Seen by Provider: Nov 02, 2019 Time Seen by Provider: 09:30 Subjective/Events-last exam Pt doing remarkably well. Already asking to go home. Still pretty weak with myopathy. No evidence of any Coronavirus residual. Lungs remain clear. No SOB or oxygen requirement. Maintained on Lovenox for DVT prophylaxis. Checked meds and labs Reviewed therapy notes Conferred with straight line edger of Systems General: Fatigue Neurological: Weakness, Numbness, Incoordination Objective Exam Vital Signs Vital Signs Date Time Temp Pulse Resp B/P (MAP) Pulse Ox O2 Delivery O2 Flow Rate FiO2 11/02/19 17:24 36.5 77 18 136/81 (99) 98 Room Air Capillary Refill : Less Than 3 Seconds General Appearance: No Apparent Distress, WD/WN, Chronically ill, Obese HEENT: PERRL/EOMI, Normal ENT Inspection, Pharynx Normal Neck: Full Range of Motion, Normal Inspection, Non Tender, Supple, Carotid Bruit Respiratory: Chest Non Tender, Lungs Clear, Normal Breath Sounds, No Accessory Muscle Use, No Respiratory Distress Cardiovascular: Regular Rate, Rhythm, No Edema, No Gallop, No JVD, No Murmur, Normal Peripheral Pulses Gastrointestinal: Normal Bowel Sounds, No Organomegaly, No Pulsatile Mass, Non Tender, Soft Back: Normal Inspection, No CVA Tenderness, No Vertebral Tenderness Extremity: Normal Capillary Refill, Normal Inspection, Normal Range of Motion, Non Tender, No Calf Tenderness, No Pedal Edema Neurologic/Psychiatric: Alert, Oriented x3, No Motor/Sensory Deficits, Normal Mood/Affect, cupola liner II-XII Norm as Tested, Abnormal Gait, Motor Weakness (generalized weakness all extremities 3/5) Skin: Normal Color, Warm/Dry Lymphatic: No Adenopathy Results/Procedures Lab Laboratory Tests 11/02/19 06:10 Patient resulted labs reviewed. FIM Transfers Therapy Code Descriptions/Definitions Functional [place] Measure: 0=Not Assessed/NA 4=Minimal Assistance 1=Total Assistance 5=Supervision or Setup 2=Maximal Assistance 6=Modified [place] 3=Moderate Assistance 7=Complete IndependenceSCALE: Activities may be completed with or without assistive devices. 3-Jxntsndxur-iymkpze completes the activity by him/herself with no assistance from a helper. 5-Set-up or Clean-up Assistance-helper sets up or cleans up; patient completes activity. [place] assists only prior to or following the activity. 4-Supervision or Touching Assistance-helper provides verbal cues and/or touching/steadying and/or contact guard assistance as patient completes activity. Assistance may be provided throughout the activity or intermittently. 3-Partial/Moderate Assistance-helper does LESS THAN HALF the effort. [place] lifts, holds or supports trunk or limbs, but provides less than half the effort. 2-Substantial/Maximal Assistance-helper does MORE THAN HALF the effort. [place] lifts or holds trunk or limbs and provides more than half the effort. 6-Hhogvzktv-sufzun does ALL the effort. Patient does none of the effort to complete the activity. Or, the assistance of 2 or more helpers is required for the patient to complete the activity. If activity was not attempted, code reason: 7-Patient Refused. 9-Not Applicable-not attempted and the patient did not perform the activity before the current illness, exacerbation or injury. 10-Not Attempted due to Environmental Limitations-(lack of equipment, weather restraints, etc.). 88-Not Attempted due to Medical Conditions or Safety Concerns. Roll Left to Right (QC): 5 Sit to Lying (QC): 2 Sit to Stand (QC): 4 Chair/Mui-tb-Pchsx Xfer(QC): 4 Car Transfer (QC): 2 Gait Training Does the Patient Walk?: Yes Distance: x 100 ft, x 200 ft Walk 10 feet (QC): 4 Walk 50 ft with 2 Turns(QC): 4 Walk 150 ft (QC): 4 Walking 10ft/uneven surface-QC: 88 Gait Persons Needed: 1 Gait Assistive Device: FWW Wheelchair Training Does the Pt Use a Wheelchair?: No Wheel 50 ft with 2 turns (QC): 1 Wheel 150 ft (QC): 1 Type of Wheelchair: Manual Stair Training 1 Step (curb) (QC): 88 4 Steps (QC): 88 12 Steps (QC): 88 Balance Picking up an Object (QC): 88 ADL-Treatment Eating (QC): 2 Oral Hygiene (QC): 4 Shower/Bathe Self (QC): 2 Upper Body Dressing (QC): 2 Lower Body Dressing (QC): 1 On/Off Footwear (QC): 2 Toileting Hygiene (QC): 3 Toilet Transfer (QC): 3 Assessment/Plan Assessment and Plan Assess & Plan/Chief Complaint Assessment: Critical illness myopathy Coronavirus s/p treatment and out of isolation s/p VDRF Lovenox for DVT PPx Facial abrasions from vent mask Tongue ulcer placed on magic mouthwash Plan: IRF protocol Monitor labs Dramatic improvement Wound care to facial wounds from vent mask Magic mouthwash Probiotic working well Reviewed Saturday labs (1) Myopathy (2) Coronavirus infection Status: Acute JASE MAGALLANES DO Nov 02, 2019 09:27
--- NOTE | 2019-11-02 11:11 | Physical Therapy Daily Note ---
PT Daily Note-Current Subjective Pt. states she feels she is making progress by the hour. c/o soreness all over. States she has hopes of being discharged Saturday as that is her wedding anniversary. Pt. states she has 17 steps up to her bedroom but her has put a shower in downstairs as well as rails and is bringing the bed downstairs in hopes she can come home soon. Pt. agrees to Rx Pain Comment: only body mm soreness reported Mental Status Patient Orientation: Normal For Age Transfers SCALE: Activities may be completed with or without assistive devices. 4-Ldurvgbkyu-njdcftz completes the activity by him/herself with no assistance from a helper. 5-Set-up or Clean-up Assistance-helper sets up or cleans up; patient completes activity. [place] assists only prior to or following the activity. 4-Supervision or Touching Assistance-helper provides verbal cues and/or touching/steadying and/or contact guard assistance as patient completes activity. Assistance may be provided throughout the activity or intermittently. 3-Partial/Moderate Assistance-helper does LESS THAN HALF the effort. [place] lifts, holds or supports trunk or limbs, but provides less than half the effort. 2-Substantial/Maximal Assistance-helper does MORE THAN HALF the effort. [place] lifts or holds trunk or limbs and provides more than half the effort. 3-Nyzfluyfh-vqactr does ALL the effort. Patient does none of the effort to complete the activity. Or, the assistance of 2 or more helpers is required for the patient to complete the activity. If activity was not attempted, code reason: 7-Patient Refused. 9-Not Applicable-not attempted and the patient did not perform the activity before the current illness, exacerbation or injury. 10-Not Attempted due to Environmental Limitations-(lack of equipment, weather restraints, etc.). 88-Not Attempted due to Medical Conditions or Safety Concerns. Roll Left & Right (QC): 6 Sit to Lying (QC): 6 Lying to Sitting/Side of Bed(Q: 6 Sit to Stand (QC): 6 Chair/Orn-by-Srfzk Xfer(QC): 6 Weight Bearing Right Lower Extremity: Right Full Weight Bearing Left Lower Extremity: Left Full Weight Bearing Gait Training Does the Patient Walk?: Yes Walk 10 feet (QC): 5 Walk 50 ft with 2 Turns(QC): 5 Walk 150 ft (QC): 5 Gait Persons Needed: 1 Gait Assistive Device: FWW even step length , slow with minimal noted SOB noted as mere deconditioning symptom as pt. recovered as soon as she sat for rest Stair Training Stair Training: Handrails/: 2 handrails #of Steps: 4 1 Step (curb) (QC): 4 4 Steps (QC): 4 Stairs: Pattern: Step to instruction for sequence and use of hands on rails only Exercises Supine Ex: Bridging, Ankle pumps, Rolling, Heel Slides, Scooting, Straight leg raise, Hip abd/add Supine Reps: 10 Seated Therapy Exercises: Ankle pumps, Sit to stand, Long arc quads, Hip flexion, Hip abd/add Seated Reps: 12 Treatments co Rx with OT as pts overall deconditioned state required for coordination of Rx for balance during stance for ADLs and exercise Assessment Current Status: Good Progress marked progress noted in strength, function and endurance PT Short Term Goals Short Term Goals Time Frame: Nov 04, 2019 Roll Left & Right: 3 Sit to lyin Lying to sitting on side of be: 3 Sit to stand: 3 Chair/tuc-qs-ooggw transfer: 3 Walk 10 feet: 3 PT Bumper And Painter Goals Bumper And Painter Goals PT Bumper And Painter Goals Time Frame: November 18, 2019 Roll Left & Right (QC): 4 Sit to Lying (QC): 4 Lying-Sitting on Side/Bed(QC): 4 Sit to Stand (QC): 4 Chair/Vzx-oz-Lsiih Xfer(QC): 4 Toilet Transfer (QC): 4 Car Transfer (QC): 4 Does the Patient Walk: Yes Walk 10 feet (QC): 4 Walk 50ft with 2 Turns (QC): 4 Walk 150 ft (QC): 88 Walking 10ft on Uneven Surface: 88 1 Step (curb) (QC): 3 4 Steps (QC): 88 12 Steps (QC): 88 Picking up an Object (QC): 88 Wheel 50 feet with 2 turns (QC: 6 Wheel 150 feet: 6 PT Plan Treatment/Plan Treatment Plan: Continue Plan of Care Treatment Plan: Bed Mobility, Education, Functional Activity [place], Functional Strength, Group Therapy, Gait, Safety, Therapeutic Exercise, Transfers Treatment Duration: November 18, 2019 Frequency: Modified Program (IRF) Estimated Hrs Per Day: 1 hour per day Patient and/or Family Agrees t: Yes Safety Risks/Education Patient Education: Gait Training, Transfer Techniques, Steps, Correct Positioning, Disease Process, Safety Issues Teaching Recipient: Patient Teaching Methods: Demonstration, Discussion Response to Teaching: Verbalize Understanding, Return Demonstration, Reinforcement Needed Time/GCodes Time In: 1000 Time Out: 1100 Total Billed Treatment Time: 60 Total Billed Treatment 1,GT15m,FA25m,EX20m ANG BENJAMIN TRAIN DRIVER Nov 02, 2019 11:11
--- NOTE | 2019-11-02 11:33 | Occupational Ther Daily Note ---
OT Current Status-Daily Note Subjective Pt alert, sitting in recliner. Pt agrees to therapy. No c/o pain at this time. Pt is improving daily with strength, mobility and ADLs. Mental Status/Objective Patient Orientation: Person, Place, Time, Situation Attachments: Central Line ADL-Treatment Therapy Code Descriptions/Definitions Functional [place] Measure: 0=Not Assessed/NA 4=Minimal Assistance 1=Total Assistance 5=Supervision or Setup 2=Maximal Assistance 6=Modified [place] 3=Moderate Assistance 7=Complete IndependenceSCALE: Activities may be completed with or without assistive devices. 4-Xrtjvpwezp-qvsuorf completes the activity by him/herself with no assistance from a helper. 5-Set-up or Clean-up Assistance-helper sets up or cleans up; patient completes activity. [place] assists only prior to or following the activity. 4-Supervision or Touching Assistance-helper provides verbal cues and/or touching/steadying and/or contact guard assistance as patient completes activity. Assistance may be provided throughout the activity or intermittently. 3-Partial/Moderate Assistance-helper does LESS THAN HALF the effort. [place] lifts, holds or supports trunk or limbs, but provides less than half the effort. 2-Substantial/Maximal Assistance-helper does MORE THAN HALF the effort. [place] lifts or holds trunk or limbs and provides more than half the effort. 2-Kvevcpvfk-tzxucp does ALL the effort. Patient does none of the effort to c omplete the activity. Or, the assistance of 2 or more helpers is required for the patient to complete the activity. If activity was not attempted, code reason: 7-Patient Refused. 9-Not Applicable-not attempted and the patient did not perform the activity before the current illness, exacerbation or injury. 10-Not Attempted due to Environmental Limitations-(lack of equipment, weather restraints, etc.). 88-Not Attempted due to Medical Conditions or Safety Concerns. On/Off Footwear: 5 (After set up, pt able to complete donning/doff socks and shoes by crodding foot over knee.) Other Treatment Co-treat with PT, skills of 2 clinicians required due to need of skilled instructions and physical assist for transfers, mobility, dressing and ambulation. PT working on LE strengthening, B LE strengthening, transfers and mobility. OT working on ADLs (dressing), B UE strengthening, positioning B UE for ambulation/mobility. Pt ambulated to therapy gym to work on B UE strengt hening exercises with resistance, only completed 1 set of each with 5-10 reps each. Pt then laid on therapy mat, supervision. Pt demonstrated increased AROM with B shldr ROM in all planes when in supine. PT took pt back to room. All needs met. OT Short Term Goals Short Term Goals Time Frame: Nov 04, 2019 Oral hygiene: 3 Toileting hygiene: 3 Upper body dressin Lower body dressin OT Mcc Goals Mcc Goals Time Frame: November 18, 2019 Eating (QC): 6 Oral Hygiene (QC): 6 Toileting Hygiene (QC): 5 Shower/Bathe Self (QC): 4 Upper Body Dressing (QC): 5 Lower Body Dressing (QC): 5 On/Off Footwear (QC): 5 Additional Goals: 1-Demonstrate ADL Tasks, 2-Verbalize Understanding, 3- ImproveStrength/[place] 1=Demonstrate adherence to instructed precautions during ADL tasks. 2=Patient will verbalize/demonstrate understanding of assistive devices/modifications for ADL. 3=Patient will improve strength/tolerance for activity to enable patient to perform ADL's. OT Education/Plan Problem List/Assessment Assessment: Decreased Activ Tolerance, Decreased UE Strength, Impaired Coordination, Impaired Funct Balance, Impaired Self-Care Skills, Restricted Funct UE ROM Discharge Recommendations Plan/Recommendations: Continue POC Treatment Plan/Plan of Care Patient would benefit from OT for education, treatment and training to promote independence in ADL's, mobility, safety and/or upper extremity function for ADL's. Plan of Care: ADL Retraining, Functional Mobility, Group Exercise/Act as Ind, UE Funct Exercise/Act, UE Neuromus Re-Ed/Coord Treatment Duration: November 18, 2019 Frequency: Modified Program (IRF) Estimated Hrs Per Day: Other Agreement: Yes Rehab Potential: Fair Time/GCodes Start Time: 10:00 Stop Time: 11:00 Total Time Billed (hr/min): 60 Billed Treatment Time 1 visit-ADL 2 (30 min) EX 2 (30 min) MELLY ORDAZ Nov 02, 2019 11:32
--- NOTE | 2019-11-02 11:46 | Speech Therapy Daily Note ---
Speech Daily Progress Note Subjective Date Seen by Provider: Nov 02, 2019 Time Seen by Provider: 00:30 Patient was resting in her chair. She was alert and facetiming with her when I entered her room. Objective Patient completed a series of ADL tasks related to her daily needs with 90% w ithout cues. Assessment Assessment Current Status: Good Progress Treatment Plan Continue Plan of Care Speech Short Term Goals Short Term Goals Short Term Goals 1) Patient will complete memory tasks related to her daily needs at 90% or greater with minimal cues. 2) Patient will complete executive function tasks related to her daily needs at 90% or greater with minimal cues. 3) Patient will complete word finding tasks related to her daily needs at 90% or greater with minimal cues. 4) Patient will complete safety awareness tasks related to her daily needs at 90% or greater with minimal cues. Speech Intermediate Goals Locomotive Oiler Goals Patient will improve cognitive-communication necessary for safety and daily living tasks with minimal assist. Speech-Plan Patient/Family Goals Patient/Family Goals: Patient plans on returning home with her and other family. Treatment Plan Speech Therapy Treatment Plan: Continue Plan of Care Treatment Duration: November 13, 2019 Frequency: 5 times per week Estimated Hrs Per Day: .25 hour per day Rehab Potential: Fair Barriers to Learning: Patient's recent illness Pt/Family Agrees to Plan: Yes Safety Risks/Education Teaching Recipient: Patient Teaching Methods: Discussion Response to Teaching: Verbalize Understanding Education Topics Provided: Continued safety within her room Time Speech Therapy Time In: 09:30 Speech Therapy Time Out: 10:00 Total Billed Time: 30 Billed Treatment Time 1LUCIA B[address] ST Nov 02, 2019 11:46
--- NOTE | 2019-11-02 13:35 | Physical Therapy Daily Note ---
PT Daily Note-Current Subjective Agrees to Rx, wants to try her tennis shoes her brought, shoes too tight Pain Location: No Pain Reported Mental Status Patient Orientation: Normal For Age Transfers SCALE: Activities may be completed with or without assistive devices. 3-Ztrppqoqcd-gyifvse completes the activity by him/herself with no assistance from a helper. 5-Set-up or Clean-up Assistance-helper sets up or cleans up; patient completes activity. [place] assists only prior to or following the activity. 4-Supervision or Touching Assistance-helper provides verbal cues and/or touching/steadying and/or contact guard assistance as patient completes activity. Assistance may be provided throughout the activity or intermittently. 3-Partial/Moderate Assistance-helper does LESS THAN HALF the effort. [place] lifts, holds or supports trunk or limbs, but provides less than half the effort. 2-Substantial/Maximal Assistance-helper does MORE THAN HALF the effort. [place] lifts or holds trunk or limbs and provides more than half the effort. 8-Ytkagsrfo-rgyjhq does ALL the effort. Patient does none of the effort to complete the activity. Or, the assistance of 2 or more helpers is required for the patient to complete the activity. If activity was not attempted, code reason: 7-Patient Refused. 9-Not Applicable-not attempted and the patient did not perform the activity before the current illness, exacerbation or injury. 10-Not Attempted due to Environmental Limitations-(lack of equipment, weather restraints, etc.). 88-Not Attempted due to Medical Conditions or Safety Concerns. all Mod I Weight Bearing Right Lower Extremity: Right Full Weight Bearing Left Lower Extremity: Left Full Weight Bearing Gait Training Gait Assistive Device: FWW 1260ft x 2 SBA no LOB, some fatigue, minor labored breathing Exercises Standing: Hip Abduction, Heel/toe raises, Marching, Mini squats Standing Reps: 12 PT Short Term Goals Short Term Goals Time Frame: Nov 04, 2019 Roll Left & Right: 3 Sit to lyin Lying to sitting on side of be: 3 Sit to stand: 3 Chair/lrq-bq-dynck transfer: 3 Walk 10 feet: 3 PT Balance Weigher Goals Skilled Nursing Goals PT Balance Weigher Goals Time Frame: November 18, 2019 Roll Left & Right (QC): 4 Sit to Lying (QC): 4 Lying-Sitting on Side/Bed(QC): 4 Sit to Stand (QC): 4 Chair/Hxb-zw-Bwfhk Xfer(QC): 4 Toilet Transfer (QC): 4 Car Transfer (QC): 4 Does the Patient Walk: Yes Walk 10 feet (QC): 4 Walk 50ft with 2 Turns (QC): 4 Walk 150 ft (QC): 88 Walking 10ft on Uneven Surface: 88 1 Step (curb) (QC): 3 4 Steps (QC): 88 12 Steps (QC): 88 Picking up an Object (QC): 88 Wheel 50 feet with 2 turns (QC: 6 Wheel 150 feet: 6 PT Plan Treatment/Plan Treatment Plan: Continue Plan of Care Treatment Plan: Bed Mobility, Education, Functional Activity Shalonda, Functional Strength, Group Therapy, Gait, Safety, Therapeutic Exercise, Transfers Treatment Duration: November 18, 2019 Frequency: Modified Program (IRF) Estimated Hrs Per Day: 1 hour per day Patient and/or Family Agrees t: Yes Safety Risks/Education Patient Education: Gait Training, Transfer Techniques, Correct Positioning, Disease Process, Safety Issues Teaching Recipient: Patient Teaching Methods: Demonstration, Discussion Response to Teaching: Verbalize Understanding, Return Demonstration, Reinforcement Needed Time/GCodes Time In: 1305 Time Out: 1320 Total Billed Treatment Time: 15 Total Billed Treatment 1,EX15m ANG BENJAMIN TOOLSMITH Nov 02, 2019 13:35
--- NOTE | 2019-11-02 13:55 | Occupational Ther Daily Note ---
OT Current Status-Daily Note Subjective Pt alert, with PT in therapy gym. ROSS took over care of pt. Pt agrees to therapy. No c/o pain. Mental Status/Objective Patient Orientation: Person, Place, Time, Situation ADL-Treatment Therapy Code Descriptions/Definitions Functional [place] Measure: 0=Not Assessed/NA 4=Minimal Assistance 1=Total Assistance 5=Supervision or Setup 2=Maximal Assistance 6=Modified [place] 3=Moderate Assistance 7=Complete IndependenceSCALE: Activities may be completed with or without assistive devices. 2-Ntefqbkmru-zzqnsbn completes the activity by him/herself with no assistance from a helper. 5-Set-up or Clean-up Assistance-helper sets up or cleans up; patient completes activity. [place] assists only prior to or following the activity. 4-Supervision or Touching Assistance-helper provides verbal cues and/or touching/steadying and/or contact guard assistance as patient completes activity. Assistance may be provided throughout the activity or intermittently. 3-Partial/Moderate Assistance-helper does LESS THAN HALF the effort. [place] lifts, holds or supports trunk or limbs, but provides less than half the effort. 2-Substantial/Maximal Assistance-helper does MORE THAN HALF the effort. [place] lifts or holds trunk or limbs and provides more than half the effort. 0-Tbxejffvo-zwlcry does ALL the effort. Patient does none of the effort to complete the activity. Or, the assistance of 2 or more helpers is required for the patient to complete the activity. If activity was not attempted, code reason: 7-Patient Refused. 9-Not Applicable-not attempted and the patient did not perform the activity before the current illness, exacerbation or injury. 10-Not Attempted due to Environmental Limitations-(lack of equipment, weather restraints, etc.). 88-Not Attempted due to Medical Conditions or Safety Concerns. Other Treatment Completed arm bike to increase AROM, B UE strength and activity tolerance. Arm bike duration 8 min at minimal resistance. Pt completed slow rotation while completing arm bike though no recovery breaks were taken. Pt then ambulated with FWW to arm pulleys. Pt completed for 5 min slowly though now recovery breaks taken. Pt able to complete full shldr flexion with pulleys. Pt then ambulated to [facility] and phone in reach after session. All needs met in room. OT Short Term Goals Short Term Goals Time Frame: Nov 04, 2019 Oral hygiene: 3 Toileting hygiene: 3 Upper body dressin Lower body dressin OT Long-Term Goals Long-Term Goals Time Frame: November 18, 2019 Eating (QC): 6 Oral Hygiene (QC): 6 Toileting Hygiene (QC): 5 Shower/Bathe Self (QC): 4 Upper Body Dressing (QC): 5 Lower Body Dressing (QC): 5 On/Off Footwear (QC): 5 Additional Goals: 1-Demonstrate ADL Tasks, 2-Verbalize Understanding, 3- ImproveStrength/Shalonda 1=Demonstrate adherence to instructed precautions during ADL tasks. 2=Patient will verbalize/demonstrate understanding of assistive devices/modifications for ADL. 3=Patient will improve strength/tolerance for activity to enable patient to perform ADL's. OT Education/Plan Problem List/Assessment Assessment: Decreased Activ Tolerance, Decreased UE Strength, Impaired Coordination, Impaired Funct Balance, Impaired Self-Care Skills Discharge Recommendations Plan/Recommendations: Continue POC Treatment Plan/Plan of Care Patient would benefit from OT for education, treatment and training to promote independence in ADL's, mobility, safety and/or upper extremity function for ADL's. Plan of Care: ADL Retraining, Functional Mobility, Group Exercise/Act as Ind, UE Funct Exercise/Act, UE Neuromus Re-Ed/Coord Treatment Duration: November 18, 2019 Frequency: Modified Program (IRF) Estimated Hrs Per Day: Other Agreement: Yes Rehab Potential: Fair Time/GCodes Start Time: 13:20 Stop Time: 13:40 Total Time Billed (hr/min): 20 Billed Treatment Time 1 visit-EX 1 (20 min) MELLY ORDAZ Nov 02, 2019 13:55
--- NOTE | 2019-11-02 14:21 | NUR ---
CM/SS CONCURRENT DOCUMENTATION Patient is showing good improvement. She is requesting to discharge home 11/06/19, for her 39th anniversary. She has shared with therapists that her spouse is working diligently to rearrange the house for her return and continued recovery. Physician and team members will discuss at weekly conference 12/04/19. In preparation, bid writer reached out to [facility]'s in service area regarding willingness to provide services in the home for a post Covid19+ patient. [facility] has agreed to provide, will discuss with patient. Continue to explore DME and services needed for overall discharge and return home. Family very close and supportive to one another.
[2019-11-02 17:24] VITALS: BP 136/81
[2019-11-02] MEDS: MELATONIN 3 MG TABLET PO PRN (22:05)
[2019-11-03 05:39] VITALS: BP 127/67
[2019-11-03] MEDS: ASCORBIC ACID (VIT C) 500 MG TABLET PO SCH ×2 (06:37→16:39)
[2019-11-03] MEDS: CATHETER FLUSH 10 ML SYR IV SCH ×2 (06:38→13:43)
--- NOTE | 2019-11-03 07:47 | Speech Therapy Daily Note ---
Speech Daily Progress Note Subjective Date Seen by Provider: Nov 03, 2019 Time Seen by Provider: 00:15 Patient sitting up in her chair following breakfast. She was discussing her plans on returning home. She is worried about contact with others at that time. Objective Patient completed q/a scenarios of "what if's" upon her return home with 90% given no cuing. Assessment Assessment Current Status: Good Progress Treatment Plan Continue Plan of Care Speech Short Term Goals Short Term Goals Short Term Goals 1) Patient will complete memory tasks related to her daily needs at 90% or greater with minimal cues. 2) Patient will complete executive function tasks related to her daily needs at 90% or greater with minimal cues. 3) Patient will complete word finding tasks related to her daily needs at 90% or greater with minimal cues. 4) Patient will complete safety awareness tasks related to her daily needs at 90% or greater with minimal cues. Speech Jail Goals Customer Account Technician Goals Patient will improve cognitive-communication necessary for safety and daily living tasks with minimal assist. Speech-Plan Patient/Family Goals Patient/Family Goals: Patient plans on returning home post rehab where she lives with her . Treatment Plan Speech Therapy Treatment Plan: Continue Plan of Care Treatment Duration: November 13, 2019 Frequency: 5 times per week Estimated Hrs Per Day: .25 hour per day Rehab Potential: Fair Barriers to Learning: Patient's recent illness Safety Risks/Education Teaching Recipient: Patient Teaching Methods: Demonstration, Discussion Response to Teaching: Verbalize Understanding, Return Demonstration Education Topics Provided: Continued safety within her room Time Speech Therapy Time In: 07:00 Speech Therapy Time Out: 07:15 Total Billed Time: 15 Billed Treatment Time 1, CECILY Gamez Nov 03, 2019 07:47
[2019-11-03] MEDS: LACTOBACILLUS ACIDOPHILUS (PROBIOTIC) CAPSULE PO SCH ×3 (09:19→16:40)
[2019-11-03] MEDS: ZINC SULFATE 220 MG CAPSULE PO SCH (09:19)
[2019-11-03] MEDS: VITAMIN D3 25 MCG (1,000 UNITS) TABLET PO SCH (09:19)
[2019-11-03] MEDS: BACITRACIN OINTMENT 28 GM TUBE TOP SCH ×2 (09:20→21:17)
[2019-11-03] MEDS: ENOXAPARIN 40 MG/0.4 ML (LOVENOX) SYR SC SCH ×2 (09:20→21:17)
[2019-11-03] MEDS: MAGIC MOUTHWASH (ADULT) PO SCH ×8 (09:20→21:17)
[2019-11-03] MEDS: DOCUSATE SODIUM 100 MG (COLACE) CAP PO SCH ×2 (09:21→22:00)
[2019-11-03] MEDS: polyethylene glycoL POWDER 17 GM (MIRALAX) PACK PO SCH ×2 (09:22→22:00)
[2019-11-03] MEDS: SENNA W/DOCUSATE (SENOKOT S) TABLET PO SCH ×2 (09:22→22:00)
--- NOTE | 2019-11-03 09:44 | PM&R Progress Note ---
Subjective HPI/CC On Admission Date Seen by Provider: Nov 03, 2019 Time Seen by Provider: 09:45 Subjective/Events-last exam Wants to go home on Saturday Outpatient PT is requested Lovenox will be maintained until she sees Dr. Judd Had a little bit of confusion when she was trying to feed herself today and put butter on her oatmeal instead of her biscuit Pt constantly on facetime with her family during those type of activities of daily living therapy sessions and it could be a distracting component causing her some confusion like that so will encourage her to focus on therapy sessions without facetime as a distraction Loose stools are improved by probiotic Checked meds and labs Reviewed therapy notes Conferred with analyst food and beverage of Systems General: Fatigue Neurological: Weakness, Incoordination Objective Exam Vital Signs Vital Signs Date Time Temp Pulse Resp B/P (MAP) Pulse Ox O2 Delivery O2 Flow Rate FiO2 11/04/19 06:00 36.6 82 14 145/75 (98) 93 Room Air Capillary Refill : Less Than 3 Seconds General Appearance: No Apparent Distress, WD/WN, Chronically ill, Obese HEENT: PERRL/EOMI, Normal ENT Inspection, Pharynx Normal Neck: Full Range of Motion, Normal Inspection, Non Tender, Supple, Carotid Bruit Respiratory: Chest Non Tender, Lungs Clear, Normal Breath Sounds, No Accessory Muscle Use, No Respiratory Distress Cardiovascular: Regular Rate, Rhythm, No Edema, No Gallop, No JVD, No Murmur, Normal Peripheral Pulses Gastrointestinal: Normal Bowel Sounds, No Organomegaly, No Pulsatile Mass, Non Tender, Soft Back: Normal Inspection, No CVA Tenderness, No Vertebral Tenderness Extremity: Normal Capillary Refill, Normal Inspection, Normal Range of Motion, Non Tender, No Calf Tenderness, No Pedal Edema Neurologic/Psychiatric: Alert, Oriented x3, No Motor/Sensory Deficits, Normal Mood/Affect, production solderer II-XII Norm as Tested, Abnormal Gait, Motor Weakness (generalized weakness all extremities 3/5) Skin: Normal Color, Warm/Dry Lymphatic: No Adenopathy Results/Procedures Lab Patient resulted labs reviewed. FIM Transfers Therapy Code Descriptions/Definitions Functional [place] Measure: 0=Not Assessed/NA 4=Minimal Assistance 1=Total Assistance 5=Supervision or Setup 2=Maximal Assistance 6=Modified [place] 3=Moderate Assistance 7=Complete IndependenceSCALE: Activities may be completed with or without assistive devices. 4-Nmnypmgzuu-vistgmz completes the activity by him/herself with no assistance from a helper. 5-Set-up or Clean-up Assistance-helper sets up or cleans up; patient completes activity. [place] assists only prior to or following the activity. 4-Supervision or Touching Assistance-helper provides verbal cues and/or touching/steadying and/or contact guard assistance as patient completes activity. Assistance may be provided throughout the activity or intermittently. 3-Partial/Moderate Assistance-helper does LESS THAN HALF the effort. [place] lifts, holds or supports trunk or limbs, but provides less than half the effort. 2-Substantial/Maximal Assistance-helper does MORE THAN HALF the effort. [place] lifts or holds trunk or limbs and provides more than half the effort. 5-Orwpfnrhd-xnnaga does ALL the effort. Patient does none of the effort to complete the activity. Or, the assistance of 2 or more helpers is required for the patient to complete the activity. If activity was not attempted, code reason: 7-Patient Refused. 9-Not Applicable-not attempted and the patient did not perform the activity before the current illness, exacerbation or injury. 10-Not Attempted due to Environmental Limitations-(lack of equipment, weather restraints, etc.). 88-Not Attempted due to Medical Conditions or Safety Concerns. Roll Left to Right (QC): 6 Sit to Lying (QC): 6 Sit to Stand (QC): 6 Chair/Vjx-ww-Damif Xfer(QC): 6 Car Transfer (QC): 2 Gait Training Does the Patient Walk?: Yes Distance: x 100 ft, x 200 ft Walk 10 feet (QC): 5 Walk 50 ft with 2 Turns(QC): 5 Walk 150 ft (QC): 5 Walking 10ft/uneven surface-QC: 88 Gait Persons Needed: 1 Gait Assistive Device: FWW Wheelchair Training Does the Pt Use a Wheelchair?: No Wheel 50 ft with 2 turns (QC): 1 Wheel 150 ft (QC): 1 Type of Wheelchair: Manual Stair Training Stair Training: Handrails/: 2 handrails #of Steps: 4 1 Step (curb) (QC): 4 4 Steps (QC): 4 12 Steps (QC): 88 Stairs: Pattern: Step to Balance Picking up an Object (QC): 88 ADL-Treatment Eating (QC): 2 Oral Hygiene (QC): 4 Shower/Bathe Self (QC): 2 Upper Body Dressing (QC): 2 Lower Body Dressing (QC): 1 On/Off Footwear (QC): 5 (After set up, pt able to complete donning/doff socks and shoes by crodding foot over knee.) Toileting Hygiene (QC): 3 Toilet Transfer (QC): 3 Assessment/Plan Assessment and Plan Assess & Plan/Chief Complaint Assessment: Critical illness myopathy Coronavirus s/p treatment and out of isolation s/p VDRF Lovenox for DVT PPx Facial abrasions from vent mask Tongue ulcer placed on magic mouthwash Plan: IRF protocol Monitor labs Dramatic improvement Wound care to facial wounds from vent mask Magic mouthwash Probiotic working well Reviewed Saturday labs DC Saturday (1) Myopathy (2) Coronavirus infection Status: Acute JASE MAGALLANES DO Nov 03, 2019 09:44
--- NOTE | 2019-11-03 11:03 | Physical Therapy Daily Note ---
PT Daily Note-Current Subjective Pt agreeable. Pt reports she is getting stronger every day but says she is only about 20-30% of her normal strength at this time. Pt unable to raise arms >60- 70deg due to stiffness/weakness. Pt notes "I still can't pull my toes up either." Pt states her is fixing things at home: bed, bathroom and shower will all be on main level of home. Pt says she is hoping to discharge to home Saturday. Pt requests no homecare as they do not want germs brought into the home. Discussed option of outpt rehab and telehealth PT once she is discharged. Mental Status Patient Orientation: Person, Place, Situation Transfers SCALE: Activities may be completed with or without assistive devices. 3-Meqcwxwltv-ofvjntw completes the activity by him/herself with no assistance from a helper. 5-Set-up or Clean-up Assistance-helper sets up or cleans up; patient completes activity. [place] assists only prior to or following the activity. 4-Supervision or Touching Assistance-helper provides verbal cues and/or touching/steadying and/or contact guard assistance as patient completes activity. Assistance may be provided throughout the activity or intermittently. 3-Partial/Moderate Assistance-helper does LESS THAN HALF the effort. [place] lifts, holds or supports trunk or limbs, but provides less than half the effort. 2-Substantial/Maximal Assistance-helper does MORE THAN HALF the effort. [place] lifts or holds trunk or limbs and provides more than half the effort. 4-Lxttmieix-xnbyoq does ALL the effort. Patient does none of the effort to complete the activity. Or, the assistance of 2 or more helpers is required for the patient to complete the activity. If activity was not attempted, code reason: 7-Patient Refused. 9-Not Applicable-not attempted and the patient did not perform the activity before the current illness, exacerbation or injury. 10-Not Attempted due to Environmental Limitations-(lack of equipment, weather restraints, etc.). 88-Not Attempted due to Medical Conditions or Safety Concerns. sit to stand transfers SBA Weight Bearing Right Lower Extremity: Right Full Weight Bearing Left Lower Extremity: Left Full Weight Bearing Gait Training Gait Assistive Device: FWW Pt amb with FWW and CGA 2 x 800ft at good speed. Rest breaks in w/c as needed Exercises Seated Therapy Exercises: Ankle pumps, Long arc quads, Hip flexion, Hip abd/add Seated Reps: 20 Standing: Hip Abduction, Heel/toe raises, Marching Standing Reps: 25 Assessment Current Status: Good Progress Endurance, LE strength improving steadily. Pt back to recliner post therapy se ssion with call light and all needs met. PT Short Term Goals Short Term Goals Time Frame: Nov 04, 2019 Roll Left & Right: 3 Sit to lyin Lying to sitting on side of be: 3 Sit to stand: 3 Chair/rjn-uq-uzxtt transfer: 3 Walk 10 feet: 3 PT Fpc Goals Thread Inspector Goals PT Fpc Goals Time Frame: November 18, 2019 Roll Left & Right (QC): 4 Sit to Lying (QC): 4 Lying-Sitting on Side/Bed(QC): 4 Sit to Stand (QC): 4 Chair/Jgu-qc-Oolii Xfer(QC): 4 Toilet Transfer (QC): 4 Car Transfer (QC): 4 Does the Patient Walk: Yes Walk 10 feet (QC): 4 Walk 50ft with 2 Turns (QC): 4 Walk 150 ft (QC): 88 Walking 10ft on Uneven Surface: 88 1 Step (curb) (QC): 3 4 Steps (QC): 88 12 Steps (QC): 88 Picking up an Object (QC): 88 Wheel 50 feet with 2 turns (QC: 6 Wheel 150 feet: 6 PT Plan Treatment/Plan Treatment Plan: Continue Plan of Care Treatment Plan: Bed Mobility, Education, Functional Activity Shalonda, Functional Strength, Group Therapy, Gait, Safety, Therapeutic Exercise, Transfers Treatment Duration: November 18, 2019 Frequency: Modified Program (IRF) Estimated Hrs Per Day: 1 hour per day Patient and/or Family Agrees t: Yes Time/GCodes Time In: 915 Time Out: 1015 Total Billed Treatment Time: 60 Total Billed Treatment 1, ther ex x 30', gait x 30' DIANA PRABHAKAR CPTA Nov 03, 2019 11:03
--- NOTE | 2019-11-03 11:04 | NUR ---
"RD ASSESSMENT PMHx: No significant PMH PT INTERACTION: Pt was awake and pleasant during nutrition follow-up. Pt states she has been eating well since last assessment. Note avg PO intake 57% x3d, per chart review. Pt states no issues with nausea, vomiting, or constipation since last assessment, but has had some loose stools. Note last BM was 11/01, and pt currently on bowel regimen of colace BID; senna BID; and miralax BID, per chart review. Note presence of facial wounds, per visual assessment. ABNORMAL NUTRITION-RELATED LAB VALUES LOW: Pro 5.8 HIGH: Cl 112; AST 52; ALT 106 Est. kcal needs: 0830-3296 kcal | 15-18 kcal/kg Est. Pro needs: 80-100 kcal | 0.8-1.0 g Pro/kg PES STATEMENT: Inadequate oral intake (NI-2.1) related to loss of appetite | diarrhea as evidenced by pt interview | avg PO intake 57% x3d Inadequate protein intake (NI-5.6.1) related to increased protein needs as evidenced by presence of wounds (facial wounds) INTERVENTION: Continue with current diet order of Regular diet. Add Ensure HP (vary) to meals TID. Provides 160 kcal and 16 g Pro per serving, for perceived benefit to wound healing. Will continue to follow and reassess as pt needs, intake, and status change. MONITOR/EVALUATE: PO Intake; Plan of Care; Hydration Status; Weight Status; Lab Values Vivek Syed, MS, RD, LD"
--- NOTE | 2019-11-03 11:44 | Occupational Ther Daily Note ---
OT Current Status-Daily Note Subjective Pt alert, sitting in recliner. Pt agrees to therapy. No c/o pain at this time. Mental Status/Objective Patient Orientation: Person, Place, Time, Situation Attachments: Central Line ADL-Treatment Pt agrees to shower. Pt has progressed tremendously with completing own ADLs and B UE strength. Pt is improving slightly with B shldr AROM, full ROM with APROM. Pt ambulated to bathroom and transferred to toilet with SBA then supervision for toileting hygiene/clothing manipulation. Pt ambulated and transferred into shower with SBA using FWW, shower bench and grabbars. Pt completed bathing sitting on bench for all areas except buttocks, SBA. After set up, pt able to don/doff upper body clothing (set up only) and lower body clothing with SBA for safety. Pt sat at sink to complete oral care. Pt continues to need assistance to brush hair. After therapy, pt sitting in recliner with call light/phone in reach. All needs met in room. Therapy Code Descriptions/Definitions Functional [place] Measure: 0=Not Assessed/NA 4=Minimal Assistance 1=Total Assistance 5=Supervision or Setup 2=Maximal Assistance 6=Modified [place] 3=Moderate Assistance 7=Complete IndependenceSCALE: Activities may be completed with or without assistive devices. 9-Xmwngbockk-ueizwjg completes the activity by him/herself with no assistance from a helper. 5-Set-up or Clean-up Assistance-helper sets up or cleans up; patient completes activity. [place] assists only prior to or following the activity. 4-Supervision or Touching Assistance-helper provides verbal cues and/or touching/steadying and/or contact guard assistance as patient completes activity. Assistance may be provided throughout the activity or intermittently. 3-Partial/Moderate Assistance-helper does LESS THAN HALF the effort. [place] lifts, holds or supports trunk or limbs, but provides less than half the effort. 2-Substantial/Maximal Assistance-helper does MORE THAN HALF the effort. [place] lifts or holds trunk or limbs and provides more than half the effort. 3-Hoyrhticm-ldujkg does ALL the effort. Patient does none of the effort to complete the activity. Or, the assistance of 2 or more helpers is required for the patient to complete the activity. If activity was not attempted, code reason: 7-Patient Refused. 9-Not Applicable-not attempted and the patient did not perform the activity before the current illness, exacerbation or injury. 10-Not Attempted due to Environmental Limitations-(lack of equipment, weather restraints, etc.). 88-Not Attempted due to Medical Conditions or Safety Concerns. Oral Hygiene (QC): 6 Shower/Bathe Self (QC): 4 (SBA) Upper Body Dressing (QC): 5 Lower Body Dressing (QC): 4 (SBA) On/Off Footwear: 5 Toileting Hygiene (QC): 4 (SBA) Toilet Transfer (QC): 4 (SBA) OT Short Term Goals Short Term Goals Time Frame: Nov 04, 2019 Oral hygiene: 3 Toileting hygiene: 3 Upper body dressin Lower body dressin OT Machine Engineer Goals Machine Engineer Goals Time Frame: November 18, 2019 Eating (QC): 6 Oral Hygiene (QC): 6 Toileting Hygiene (QC): 5 Shower/Bathe Self (QC): 4 Upper Body Dressing (QC): 5 Lower Body Dressing (QC): 5 On/Off Footwear (QC): 5 Additional Goals: 1-Demonstrate ADL Tasks, 2-Verbalize Understanding, 3- ImproveStrength/Shalonda 1=Demonstrate adherence to instructed precautions during ADL tasks. 2=Patient will verbalize/demonstrate understanding of assistive devices/modifications for ADL. 3=Patient will improve strength/tolerance for activity to enable patient to perform ADL's. OT Education/Plan Problem List/Assessment Assessment: Decreased Activ Tolerance, Decreased UE Strength, Impaired Coordination, Impaired Funct Balance, Impaired Self-Care Skills, Restricted Funct UE ROM Discharge Recommendations Plan/Recommendations: Continue POC Treatment Plan/Plan of Care Patient would benefit from OT for education, treatment and training to promote i ndependence in ADL's, mobility, safety and/or upper extremity function for ADL's. Plan of Care: ADL Retraining, Functional Mobility, Group Exercise/Act as Ind, UE Funct Exercise/Act, UE Neuromus Re-Ed/Coord Treatment Duration: November 18, 2019 Frequency: Modified Program (IRF) Estimated Hrs Per Day: Other Agreement: Yes Rehab Potential: Fair Time/GCodes Start Time: 10:30 Stop Time: 11:30 Total Time Billed (hr/min): 60 Billed Treatment Time 1 visit-ADL 4 (60 min) MELLY ORDAZ Nov 03, 2019 11:44
--- NOTE | 2019-11-03 13:48 | NUR ---
CM/SS CONCURRENT DOCUMENTATION Patient has requested to go home Saturday for her 40 anniversary. Physician and team are in agreement and plans are underway to coordinate with patient and family as well as post hospital resources. Patient has requested to have outpatient PT rather than home health as a means of protection for all involved parties, particularly her family. Patient to have Lovenox until followup appointment with her PCP Dr. Yamilex Judd [place], [place]. Rx to be transmitted to [facility] so that OOP costs can determined. Patient has FWW at home, monitoring for other DME needs. Patient's spouse present on iPad in room and aware of all arrangements.
--- NOTE | 2019-11-03 14:35 | Physical Therapy Daily Note ---
PT Daily Note-Current Subjective Pt ready, agrees to PT. Mental Status Patient Orientation: Person, Place, Situation Transfers SCALE: Activities may be completed with or without assistive devices. 2-Ipykekasdb-ulgpucz completes the activity by him/herself with no assistance from a helper. 5-Set-up or Clean-up Assistance-helper sets up or cleans up; patient completes activity. [place] assists only prior to or following the activity. 4-Supervision or Touching Assistance-helper provides verbal cues and/or touching/steadying and/or contact guard assistance as patient completes activity. Assistance may be provided throughout the activity or intermittently. 3-Partial/Moderate Assistance-helper does LESS THAN HALF the effort. [place] lifts, holds or supports trunk or limbs, but provides less than half the effort. 2-Substantial/Maximal Assistance-helper does MORE THAN HALF the effort. [place] lifts or holds trunk or limbs and provides more than half the effort. 5-Rrzuaufas-ptcfay does ALL the effort. Patient does none of the effort to complete the activity. Or, the assistance of 2 or more helpers is required for the patient to complete the activity. If activity was not attempted, code reason: 7-Patient Refused. 9-Not Applicable-not attempted and the patient did not perform the activity before the current illness, exacerbation or injury. 10-Not Attempted due to Environmental Limitations-(lack of equipment, weather restraints, etc.). 88-Not Attempted due to Medical Conditions or Safety Concerns. Weight Bearing Right Lower Extremity: Right Full Weight Bearing Left Lower Extremity: Left Full Weight Bearing Gait Training Gait Assistive Device: FWW 1 x 450ft Exercises Supine Ex: Quad Set Seated Therapy Exercises: Ankle pumps, Long arc quads, Hip flexion, Hip abd/add Seated Reps: 20 Standing: Hip Abduction, Heel/toe raises, Marching, Sit to Stand Standing Reps: 10 Assessment Current Status: Good Progress Pt arron very well. Pt strength and functional mobility improving daily. Minimal foot slap noted during ambulation. Pt in care of ROSS post therapy session. PT Short Term Goals Short Term Goals Time Frame: Nov 04, 2019 Roll Left & Right: 3 Sit to lyin Lying to sitting on side of be: 3 Sit to stand: 3 Chair/muw-fx-jdazg transfer: 3 Walk 10 feet: 3 PT Group Home Goals Ug Designer Goals PT Ug Designer Goals Time Frame: November 18, 2019 Roll Left & Right (QC): 4 Sit to Lying (QC): 4 Lying-Sitting on Side/Bed(QC): 4 Sit to Stand (QC): 4 Chair/Bkt-qx-Dajht Xfer(QC): 4 Toilet Transfer (QC): 4 Car Transfer (QC): 4 Does the Patient Walk: Yes Walk 10 feet (QC): 4 Walk 50ft with 2 Turns (QC): 4 Walk 150 ft (QC): 88 Walking 10ft on Uneven Surface: 88 1 Step (curb) (QC): 3 4 Steps (QC): 88 12 Steps (QC): 88 Picking up an Object (QC): 88 Wheel 50 feet with 2 turns (QC: 6 Wheel 150 feet: 6 PT Plan Treatment/Plan Treatment Plan: Continue Plan of Care Treatment Plan: Bed Mobility, Education, Functional Activity Shalonda, Functional Strength, Group Therapy, Gait, Safety, Therapeutic Exercise, Transfers Treatment Duration: November 18, 2019 Frequency: Modified Program (IRF) Estimated Hrs Per Day: 1 hour per day Patient and/or Family Agrees t: Yes Time/GCodes Time In: 115 Time Out: 130 Total Billed Treatment Time: 15 Total Billed Treatment 1, ther ex x 5', gait x 10' DIANA PRABHAKAR CPTA Nov 03, 2019 14:35
--- NOTE | 2019-11-03 14:46 | Occupational Ther Daily Note ---
OT Current Status-Daily Note Subjective Pt is alert, sitting in recliner. Pt agrees to therapy. No c/o pain at this time. ADL-Treatment Therapy Code Descriptions/Definitions Functional [place] Measure: 0=Not Assessed/NA 4=Minimal Assistance 1=Total Assistance 5=Supervision or Setup 2=Maximal Assistance 6=Modified [place] 3=Moderate Assistance 7=Complete IndependenceSCALE: Activities may be completed with or without assistive devices. 3-Ylidhhcven-gjwcvyi completes the activity by him/herself with no assistance from a helper. 5-Set-up or Clean-up Assistance-helper sets up or cleans up; patient completes a ctivity. [place] assists only prior to or following the activity. 4-Supervision or Touching Assistance-helper provides verbal cues and/or touching/steadying and/or contact guard assistance as patient completes activity. Assistance may be provided throughout the activity or intermittently. 3-Partial/Moderate Assistance-helper does LESS THAN HALF the effort. [place] lifts, holds or supports trunk or limbs, but provides less than half the effort. 2-Substantial/Maximal Assistance-helper does MORE THAN HALF the effort. [place] lifts or holds trunk or limbs and provides more than half the effort. 1-Xfisksszk-ftgyka does ALL the effort. Patient does none of the effort to complete the activity. Or, the assistance of 2 or more helpers is required for the patient to complete the activity. If activity was not attempted, code reason: 7-Patient Refused. 9-Not Applicable-not attempted and the patient did not perform the activity before the current illness, exacerbation or injury. 10-Not Attempted due to Environmental Limitations-(lack of equipment, weather restraints, etc.). 88-Not Attempted due to Medical Conditions or Safety Concerns. Other Treatment Pt completed resistive fine motor tasks to increase strength and dexterity for daily functional tasks. Pt stood during fine motor tasks to increase activity tolerance and functional balance. Medium resistance theraputty given for HEP. After therapy, pt sitting in recliner with call light/phone in reach. All needs met in room. OT Short Term Goals Short Term Goals Time Frame: Nov 04, 2019 Oral hygiene: 3 Toileting hygiene: 3 Upper body dressin Lower body dressin OT Fpc Goals Fpc Goals Time Frame: November 18, 2019 Eating (QC): 6 Oral Hygiene (QC): 6 Toileting Hygiene (QC): 5 Shower/Bathe Self (QC): 4 Upper Body Dressing (QC): 5 Lower Body Dressing (QC): 5 On/Off Footwear (QC): 5 Additional Goals: 1-Demonstrate ADL Tasks, 2-Verbalize Understanding, 3- ImproveStrength/Shalonda 1=Demonstrate adherence to instructed precautions during ADL tasks. 2=Patient will verbalize/demonstrate understanding of assistive devices/modifications for ADL. 3=Patient will improve strength/tolerance for activity to enable patient to perform ADL's. OT Education/Plan Problem List/Assessment Assessment: Decreased Activ Tolerance, Decreased UE Strength, Restricted Funct UE ROM Discharge Recommendations Plan/Recommendations: Continue POC Treatment Plan/Plan of Care Patient would benefit from OT for education, treatment and training to promote independence in ADL's, mobility, safety and/or upper extremity function for ADL's. Plan of Care: ADL Retraining, Functional Mobility, Group Exercise/Act as Ind, UE Funct Exercise/Act, UE Neuromus Re-Ed/Coord Treatment Duration: November 18, 2019 Frequency: Modified Program (IRF) Estimated Hrs Per Day: Other Agreement: Yes Rehab Potential: Fair Time/GCodes Start Time: 13:30 Stop Time: 14:00 Total Time Billed (hr/min): 30 Billed Treatment Time 1 visit-EX 2 (30 min) MELLY ORDAZ Nov 03, 2019 14:46
[2019-11-03 17:07] VITALS: BP 133/84
[2019-11-03] MEDS ORDERED: ENOX40DI8 SC (20:03)
[2019-11-03] MEDS: MELATONIN 3 MG TABLET PO PRN (21:17)
[2019-11-03] MEDS: ARTIFICAL TEARS 0.4 ML UNIT DOSE (REFRESH PLUS) OU PRN (21:18)
[2019-11-04 06:00] VITALS: BP 145/75
[2019-11-04] MEDS: ASCORBIC ACID (VIT C) 500 MG TABLET PO SCH ×2 (06:24→17:01)
[2019-11-04] MEDS: CATHETER FLUSH 10 ML SYR IV SCH ×4 (06:24→20:53)
[2019-11-04] MEDS: ZINC SULFATE 220 MG CAPSULE PO SCH (08:19)
[2019-11-04] MEDS: BACITRACIN OINTMENT 28 GM TUBE TOP SCH ×2 (08:20→20:55)
[2019-11-04] MEDS: ENOXAPARIN 40 MG/0.4 ML (LOVENOX) SYR SC SCH ×2 (08:20→20:53)
[2019-11-04] MEDS: LACTOBACILLUS ACIDOPHILUS (PROBIOTIC) CAPSULE PO SCH ×3 (08:20→17:01)
[2019-11-04] MEDS: VITAMIN D3 25 MCG (1,000 UNITS) TABLET PO SCH (08:20)
[2019-11-04] MEDS: DOCUSATE SODIUM 100 MG (COLACE) CAP PO SCH ×2 (08:21→20:54)
[2019-11-04] MEDS: SENNA W/DOCUSATE (SENOKOT S) TABLET PO SCH ×2 (08:21→20:53)
[2019-11-04] MEDS: polyethylene glycoL POWDER 17 GM (MIRALAX) PACK PO SCH ×2 (08:21→20:54)
[2019-11-04] MEDS: MAGIC MOUTHWASH (ADULT) PO SCH ×8 (08:23→20:55)
--- NOTE | 2019-11-04 10:13 | PM&R Progress Note ---
Subjective HPI/CC On Admission Date Seen by Provider: Nov 04, 2019 Time Seen by Provider: 10:15 Subjective/Events-last exam Saturday discharge planned [facility] and will check to see if that is covered on her insurance Loose stools are improving on probiotic Doesn't take any pain medication Scab on chin is much improved so overall doing very well Checked meds and labs Reviewed therapy notes Conferred with website developer of Systems General: Fatigue Objective Exam Vital Signs Vital Signs Date Time Temp Pulse Resp B/P (MAP) Pulse Ox O2 Delivery O2 Flow Rate FiO2 11/05/19 05:55 37.0 81 16 138/79 (98) 96 Room Air Capillary Refill : Less Than 3 Seconds General Appearance: No Apparent Distress, WD/WN, Chronically ill, Obese HEENT: PERRL/EOMI, Normal ENT Inspection, Pharynx Normal Neck: Full Range of Motion, Normal Inspection, Non Tender, Supple, Carotid Bruit Respiratory: Chest Non Tender, Lungs Clear, Normal Breath Sounds, No Accessory Muscle Use, No Respiratory Distress Cardiovascular: Regular Rate, Rhythm, No Edema, No Gallop, No JVD, No Murmur, Normal Peripheral Pulses Gastrointestinal: Normal Bowel Sounds, No Organomegaly, No Pulsatile Mass, Non Tender, Soft Back: Normal Inspection, No CVA Tenderness, No Vertebral Tenderness Extremity: Normal Capillary Refill, Normal Inspection, Normal Range of Motion, Non Tender, No Calf Tenderness, No Pedal Edema Neurologic/Psychiatric: Alert, Oriented x3, No Motor/Sensory Deficits, Normal Mood/Affect, merchandise planning manager II-XII Norm as Tested, Abnormal Gait, Motor Weakness (generalized weakness all extremities 3/5) Skin: Normal Color, Warm/Dry Lymphatic: No Adenopathy Results/Procedures Lab Patient resulted labs reviewed. FIM Transfers Therapy Code Descriptions/Definitions Functional [place] Measure: 0=Not Assessed/NA 4=Minimal Assistance 1=Total Assistance 5=Supervision or Setup 2=Maximal Assistance 6=Modified [place] 3=Moderate Assistance 7=Complete IndependenceSCALE: Activities may be completed with or without assistive devices. 3-Kppmnxzomq-vagzymc completes the activity by him/herself with no assistance from a helper. 5-Set-up or Clean-up Assistance-helper sets up or cleans up; patient completes activity. [place] assists only prior to or following the activity. 4-Supervision or Touching Assistance-helper provides verbal cues and/or touching/steadying and/or contact guard assistance as patient completes activity. Assistance may be provided throughout the activity or intermittently. 3-Partial/Moderate Assistance-helper does LESS THAN HALF the effort. [place] lifts, holds or supports trunk or limbs, but provides less than half the effort. 2-Substantial/Maximal Assistance-helper does MORE THAN HALF the effort. [place] lifts or holds trunk or limbs and provides more than half the effort. 7-Znxgxrkto-aperyb does ALL the effort. Patient does none of the effort to complete the activity. Or, the assistance of 2 or more helpers is required for the patient to complete the activity. If activity was not attempted, code reason: 7-Patient Refused. 9-Not Applicable-not attempted and the patient did not perform the activity before the current illness, exacerbation or injury. 10-Not Attempted due to Environmental Limitations-(lack of equipment, weather restraints, etc.). 88-Not Attempted due to Medical Conditions or Safety Concerns. Roll Left to Right (QC): 6 Sit to Lying (QC): 6 Sit to Stand (QC): 6 Chair/Lxf-dk-Vrbsr Xfer(QC): 6 Car Transfer (QC): 2 Gait Training Does the Patient Walk?: Yes Distance: x 100 ft, x 200 ft Walk 10 feet (QC): 5 Walk 50 ft with 2 Turns(QC): 5 Walk 150 ft (QC): 5 Walking 10ft/uneven surface-QC: 88 Gait Persons Needed: 1 Gait Assistive Device: FWW Wheelchair Training Does the Pt Use a Wheelchair?: Yes Wheel 50 ft with 2 turns (QC): 1 Wheel 150 ft (QC): 1 Type of Wheelchair: Manual Stair Training Stair Training: Handrails/: 2 handrails #of Steps: 4 1 Step (curb) (QC): 4 4 Steps (QC): 4 12 Steps (QC): 88 Stairs: Pattern: Step to Balance Picking up an Object (QC): 88 ADL-Treatment Eating (QC): 2 Oral Hygiene (QC): 6 Shower/Bathe Self (QC): 4 (SBA) Upper Body Dressing (QC): 5 Lower Body Dressing (QC): 4 (SBA) On/Off Footwear (QC): 5 Toileting Hygiene (QC): 4 (SBA) Toilet Transfer (QC): 4 (SBA) Assessment/Plan Assessment and Plan Assess & Plan/Chief Complaint Assessment: Critical illness myopathy Coronavirus s/p treatment and out of isolation s/p VDRF Lovenox for DVT PPx Facial abrasions from vent mask Tongue ulcer placed on magic mouthwash Plan: IRF protocol Monitor labs Dramatic improvement Wound care to facial wounds from vent mask Magic mouthwash Probiotic working well Reviewed Saturday labs DC Saturday (1) Myopathy (2) Coronavirus infection Status: Acute JASE MAGALLANES DO Nov 04, 2019 10:13
--- NOTE | 2019-11-04 11:33 | Speech Therapy Daily Note ---
Speech Daily Progress Note Subjective Date Seen by Provider: Nov 04, 2019 Time Seen by Provider: 00:30 Patient was resting in her recliner. She stated she can't wait to go home and resume a "normal" life. Objective Patient completed a series of q/a related to her daily routine at home with 100% without cues. Assessment Assessment Current Status: Good Progress Treatment Plan Continue Plan of Care Speech Short Term Goals Short Term Goals Short Term Goals 1) Patient will complete memory tasks related to her daily needs at 90% or greater with minimal cues. 2) Patient will complete executive function tasks related to her daily needs at 90% or greater with minimal cues. 3) Patient will complete word finding tasks related to her daily needs at 90% or greater with minimal cues. 4) Patient will complete safety awareness tasks related to her daily needs at 90% or greater with minimal cues. Speech Build And Deployment Engineer Goals Build And Deployment Engineer Goals Patient will improve cognitive-communication necessary for safety and daily living tasks with minimal assist. Speech-Plan Patient/Family Goals Patient/Family Goals: Patient plans on returning to her home where she lives with her . Treatment Plan Speech Therapy Treatment Plan: Continue Plan of Care Treatment Duration: November 13, 2019 Frequency: 5 times per week Estimated Hrs Per Day: .25 hour per day Rehab Potential: Fair Barriers to Learning: Patient's recent illness, however her cogntive clarity has resolved Pt/Family Agrees to Plan: Yes Safety Risks/Education Teaching Recipient: Patient Teaching Methods: Demonstration, Discussion Response to Teaching: Verbalize Understanding, Return Demonstration Education Topics Provided: Continued safety while in the ARU Time Speech Therapy Time In: 08:30 Speech Therapy Time Out: 09:00 Total Billed Time: 30 Billed Treatment Time 1LUCIA BETHANIA ST Nov 04, 2019 11:33
--- NOTE | 2019-11-04 13:20 | Occupational Ther Daily Note ---
OT Current Status-Daily Note Subjective Pt seated in recliner, agreeable to OT tx. She did not report any pain during tx. Mental Status/Objective Patient Orientation: Normal For Age ADL-Treatment Therapy Code Descriptions/Definitions Functional [place] Measure: 0=Not Assessed/NA 4=Minimal Assistance 1=Total Assistance 5=Supervision or Setup 2=Maximal Assistance 6=Modified [place] 3=Moderate Assistance 7=Complete IndependenceSCALE: Activities may be completed with or without assistive devices. 3-Pcoobfxtem-dxiterk completes the activity by him/herself with no assistance from a helper. 5-Set-up or Clean-up Assistance-helper sets up or cleans up; patient completes activity. [place] assists only prior to or following the activity. 4-Supervision or Touching Assistance-helper provides verbal cues and/or touching/steadying and/or contact guard assistance as patient completes activity. Assistance may be provided throughout the activity or intermittently. 3-Partial/Moderate Assistance-helper does LESS THAN HALF the effort. [place] lifts, holds or supports trunk or limbs, but provides less than half the effort. 2-Substantial/Maximal Assistance-helper does MORE THAN HALF the effort. [place] lifts or holds trunk or limbs and provides more than half the effort. 6-Jfaavauti-gmtoim does ALL the effort. Patient does none of the effort to complete the activity. Or, the assistance of 2 or more helpers is required for the patient to complete the activity. If activity was not attempted, code reason: 7-Patient Refused. 9-Not Applicable-not attempted and the patient did not perform the activity before the current illness, exacerbation or injury. 10-Not Attempted due to Environmental Limitations-(lack of equipment, weather restraints, etc.). 88-Not Attempted due to Medical Conditions or Safety Concerns. Eating (QC): 6 (independent per pt report) On/Off Footwear: 5 (set up, pt able to put on socks and tennis shoes) Other Treatment Pt seated in recliner, agreed to OT tx. OT and pt discussed AE needed for safe return home, pt stated her has gathered a lift chair, shower chair, and walker. Pt denies needing other AE for home, but expressed interest in obtaining over the door pulleys to work on UE ROM. Pt ambulated to therapy area using FWW with SBA. She completed x15 mins on arm bike, min resistance in order to increase BUE strength and functional endurance. OT brought pt's shoes to her and pt was able to don socks/shoes with increased time. Pt then completed pulleys to increase BUE ROM, pt completed x10 mins. Pt required a rest break between each task. Pt returned to her room and sat in the recliner with SBA. In order to increase BUE fine motor strength/coordination, pt removed beads from red theraputty. Post OT session, pt seated in recliner, call light in reach and all needs met. Education OT Patient Education: Correct positioning, Energy conservation, Exercise program, Modified ADL techniques, Progress toward Goal/Update tx plan, Purpose of tx/functional activities, Safety issues, Transfer techniques Teaching Recipient: Patient Teaching Methods: Discussion Response to Teaching: Verbalize Understanding OT Short Term Goals Short Term Goals Time Frame: Nov 04, 2019 Oral hygiene: 3 Toileting hygiene: 3 Upper body dressin Lower body dressin OT Care Home Goals Electrical Linesworker Goals Time Frame: November 18, 2019 Eating (QC): 6 Oral Hygiene (QC): 6 Toileting Hygiene (QC): 5 Shower/Bathe Self (QC): 4 Upper Body Dressing (QC): 5 Lower Body Dressing (QC): 5 On/Off Footwear (QC): 5 Additional Goals: 1-Demonstrate ADL Tasks, 2-Verbalize Understanding, 3- ImproveStrength/Shalonda 1=Demonstrate adherence to instructed precautions during ADL tasks. 2=Patient will verbalize/demonstrate understanding of assistive devices/mo difications for ADL. 3=Patient will improve strength/tolerance for activity to enable patient to perform ADL's. OT Education/Plan Problem List/Assessment Assessment: No Skilled OT Needs ID'd, Decreased UE Strength, Impaired I ADL's, Impaired Self-Care Skills Discharge Recommendations Plan/Recommendations: Continue POC Treatment Plan/Plan of Care Patient would benefit from OT for education, treatment and training to promote independence in ADL's, mobility, safety and/or upper extremity function for ADL's. Plan of Care: ADL Retraining, Functional Mobility, Group Exercise/Act as Ind, UE Funct Exercise/Act, UE Neuromus Re-Ed/Coord Treatment Duration: November 18, 2019 Frequency: Modified Program (IRF) Estimated Hrs Per Day: Other Agreement: Yes Rehab Potential: Fair Time/GCodes Start Time: 10:45 Stop Time: 12:00 Total Time Billed (hr/min): 75 Billed Treatment Time 1, ADL (15'), EX 2 (30'), FA 2 (30') TWAN DEL VALLE OT Nov 04, 2019 13:19
--- NOTE | 2019-11-04 14:35 | Physical Therapy Daily Note ---
PT Daily Note-Current Subjective Pt ready for therapy and agreeable to treatment. Pt denies pain. Mental Status Patient Orientation: Person, Place, Situation Transfers SCALE: Activities may be completed with or without assistive devices. 2-Sracnctofe-jorajns completes the activity by him/herself with no assistance from a helper. 5-Set-up or Clean-up Assistance-helper sets up or cleans up; patient completes activity. [place] assists only prior to or following the activity. 4-Supervision or Touching Assistance-helper provides verbal cues and/or touching/steadying and/or contact guard assistance as patient completes activity. Assistance may be provided throughout the activity or intermittently. 3-Partial/Moderate Assistance-helper does LESS THAN HALF the effort. [place] lifts, holds or supports trunk or limbs, but provides less than half the effort. 2-Substantial/Maximal Assistance-helper does MORE THAN HALF the effort. [place] lifts or holds trunk or limbs and provides more than half the effort. 1-Ghbmwuhrk-ttgxqf does ALL the effort. Patient does none of the effort to complete the activity. Or, the assistance of 2 or more helpers is required for the patient to complete the activity. If activity was not attempted, code reason: 7-Patient Refused. 9-Not Applicable-not attempted and the patient did not perform the activity before the current illness, exacerbation or injury. 10-Not Attempted due to Environmental Limitations-(lack of equipment, weather restraints, etc.). 88-Not Attempted due to Medical Conditions or Safety Concerns. Weight Bearing Right Lower Extremity: Right Full Weight Bearing Left Lower Extremity: Left Full Weight Bearing Gait Training Gait Assistive Device: FWW Pt amb with FWW and CGA-SBA 1 x 1400ft and 1 x 125ft Stair Training Practiced stairs with FWW and with one handrail only. Pt practiced up/down steps of 4 x 2 bouts with CGA. Pt required vc's for sequence with FWW and would benefit from continued practice. Exercises Seated Therapy Exercises: Ankle pumps, Long arc quads, Hip flexion, Hip abd/add Seated Reps: 20 Standing: Heel/toe raises, 3 way Ex=Flex, Abd, Ext, Marching, Side steps Standing Reps: 20 Treatments Pt practiced ambulation in //bars without hands for support x 4 trips, practiced side stepping x 4 trips, single leg stance, walking over obstacles x 3 trips Assessment Current Status: Good Progress Pt strength improving daily. Pt ankle PF graded 4/5, DF graded 3/5. Pt able to ascend and descend steps with step to pattern, increased effort with one handrail only. Pt resting in chair with call light and all needs met post therapy. PT Short Term Goals Short Term Goals Time Frame: Nov 04, 2019 Roll Left & Right: 3 Sit to lyin Lying to sitting on side of be: 3 Sit to stand: 3 Chair/rri-dl-yqygh transfer: 3 Walk 10 feet: 3 PT Traveling Sales Executive Goals Traveling Sales Executive Goals PT Alf Goals Time Frame: November 18, 2019 Roll Left & Right (QC): 4 Sit to Lying (QC): 4 Lying-Sitting on Side/Bed(QC): 4 Sit to Stand (QC): 4 Chair/Xpo-rw-Yptye Xfer(QC): 4 Toilet Transfer (QC): 4 Car Transfer (QC): 4 Does the Patient Walk: Yes Walk 10 feet (QC): 4 Walk 50ft with 2 Turns (QC): 4 Walk 150 ft (QC): 88 Walking 10ft on Uneven Surface: 88 1 Step (curb) (QC): 3 4 Steps (QC): 88 12 Steps (QC): 88 Picking up an Object (QC): 88 Wheel 50 feet with 2 turns (QC: 6 Wheel 150 feet: 6 PT Plan Treatment/Plan Treatment Plan: Continue Plan of Care Treatment Plan: Bed Mobility, Education, Functional Activity Shalonda, Functional Strength, Group Therapy, Gait, Safety, Therapeutic Exercise, Transfers Treatment Duration: November 18, 2019 Frequency: Modified Program (IRF) Estimated Hrs Per Day: 1 hour per day Patient and/or Family Agrees t: Yes Time/GCodes Time In: 920 Time Out: 1020 Total Billed Treatment Time: 60 Total Billed Treatment 1, Ex x 30', Gait x 30' DIANA PRABHAKAR CPTA Nov 04, 2019 14:35
--- NOTE | 2019-11-04 14:44 | Physical Therapy Daily Note ---
PT Daily Note-Current Subjective Pt issued copy of ther ex for HEP and theraband colors yellow, red and green for home exercise progression. Reviewed each exercise with pt who followed and demonstrated understanding. Mental Status Patient Orientation: Person, Place, Situation Transfers SCALE: Activities may be completed with or without assistive devices. 1-Fhezqhwgul-mvohllu completes the activity by him/herself with no assistance from a helper. 5-Set-up or Clean-up Assistance-helper sets up or cleans up; patient completes activity. [place] assists only prior to or following the activity. 4-Supervision or Touching Assistance-helper provides verbal cues and/or touching/steadying and/or contact guard assistance as patient completes activity. Assistance may be provided throughout the activity or intermittently. 3-Partial/Moderate Assistance-helper does LESS THAN HALF the effort. [place] lifts, holds or supports trunk or limbs, but provides less than half the effort. 2-Substantial/Maximal Assistance-helper does MORE THAN HALF the effort. [place] lifts or holds trunk or limbs and provides more than half the effort. 4-Frsdkhhjx-hohinq does ALL the effort. Patient does none of the effort to complete the activity. Or, the assistance of 2 or more helpers is required for the patient to complete the activity. If activity was not attempted, code reason: 7-Patient Refused. 9-Not Applicable-not attempted and the patient did not perform the activity before the current illness, exacerbation or injury. 10-Not Attempted due to Environmental Limitations-(lack of equipment, weather restraints, etc.). 88-Not Attempted due to Medical Conditions or Safety Concerns. Weight Bearing Right Lower Extremity: Right Full Weight Bearing Left Lower Extremity: Left Full Weight Bearing Exercises Supine Ex: Bridging, Pelvic tilt, Straight leg raise Supine Reps: 20 Seated Therapy Exercises: Ankle pumps, Long arc quads, Hip flexion Seated Reps: 20 Standing: Heel/toe raises, 3 way Ex=Flex, Abd, Ext, Marching, Mini squats, Side steps Standing Reps: 20 Assessment Current Status: Good Progress Pt verbalized understanding of HEP. Demonstrated good performance. Pt progressing appropriately with all phases of rehab. Pt resting in chair post therapy session with all needs met. PT Short Term Goals Short Term Goals Time Frame: Nov 04, 2019 Roll Left & Right: 3 Sit to lyin Lying to sitting on side of be: 3 Sit to stand: 3 Chair/ltj-ca-rxcbj transfer: 3 Walk 10 feet: 3 PT Golf Course Keeper Goals Prison Goals PT Prison Goals Time Frame: November 18, 2019 Roll Left & Right (QC): 4 Sit to Lying (QC): 4 Lying-Sitting on Side/Bed(QC): 4 Sit to Stand (QC): 4 Chair/Zuj-ls-Wskys Xfer(QC): 4 Toilet Transfer (QC): 4 Car Transfer (QC): 4 Does the Patient Walk: Yes Walk 10 feet (QC): 4 Walk 50ft with 2 Turns (QC): 4 Walk 150 ft (QC): 88 Walking 10ft on Uneven Surface: 88 1 Step (curb) (QC): 3 4 Steps (QC): 88 12 Steps (QC): 88 Picking up an Object (QC): 88 Wheel 50 feet with 2 turns (QC: 6 Wheel 150 feet: 6 PT Plan Treatment/Plan Treatment Plan: Continue Plan of Care Treatment Plan: Bed Mobility, Education, Functional Activity Shalonda, Functional Strength, Group Therapy, Gait, Safety, Therapeutic Exercise, Transfers Treatment Duration: November 18, 2019 Frequency: Modified Program (IRF) Estimated Hrs Per Day: 1 hour per day Patient and/or Family Agrees t: Yes Time/GCodes Time In: 120 Time Out: 145 Total Billed Treatment Time: 25 Total Billed Treatment 1, ther ex x 25' DIANA PRABHAKAR CPTA Nov 04, 2019 14:44
--- NOTE | 2019-11-04 15:37 | NUR ---
CM/SS WEEKLY TEAM CONFERENCE SUMMARY and DISCHARGE PLANNING Several intermittent visits with patient today, lastly to review Summary. Team and patient working toward discharge home Saturday. THERAPY: Outpatient Therapy scheduled for patient with her choice agency, [facility]. First available appointment, Sunday, November 10, 2019, at 0815. Patient/family to schedule all other appointments. OP PT will pursue orders from PCP Dr. Judd. DME: Patient has FWW at home. No new DME needed unless situation changes to warrant re-evaluation. Therapy staff have discussed over door pulleys with her for continued strength training and explored samples online. Rx: New prescription Lovenox transmitted to [facility], confirmed patient's OOP expense will be $171.00. Patient indicates she is able to pay for this and agrees to use. [place] Walk planned with patient and her family for her overall discharge scheduled for 1029. Patient has been fully informed and has expressed her boundaries as well as willingness/permission for this activity: Patient gives permission for her full name to be used, if desired. She approves having this posted to [facility]/website as a success story as well as being shared with local news stations. She approves being identified as a Covid19 survivor. She does not want to be interviewed or speak. Patient commented that while she was so ill and facility allowed no visitors, her family chose to read the POSITIVE stories about Covid survivors to bring them hope and comfort, and she wishes her story to be shared as a POSITIVE. Daughter Ann Sawant brought outfit today at patient's request for her exit from hospital. Patient and family surprise planned by staff for balloons and a small "39th Anniversary" cake for her and her spouse to enjoy at home. All staff, especially those who have provided care during her 25 day stay, are invited to participate in the Celebratory send off. greenhouse staff to make patient's followup appointments with PCP Dr. Judd and wound clinic Dr. Torres. Finalize as needed.
[2019-11-04 17:40] VITALS: BP 136/82
[2019-11-04] MEDS: ARTIFICAL TEARS 0.4 ML UNIT DOSE (REFRESH PLUS) OU PRN (20:53)
[2019-11-04] MEDS: MELATONIN 3 MG TABLET PO PRN (20:53)
[2019-11-05 05:55] VITALS: BP 138/79
[2019-11-05] MEDS: CATHETER FLUSH 10 ML SYR IV SCH ×3 (06:01→20:31)
[2019-11-05] MEDS: ASCORBIC ACID (VIT C) 500 MG TABLET PO SCH ×2 (06:01→17:20)
[2019-11-05] MEDS: LACTOBACILLUS ACIDOPHILUS (PROBIOTIC) CAPSULE PO SCH ×3 (08:02→17:20)
[2019-11-05] MEDS: ZINC SULFATE 220 MG CAPSULE PO SCH (08:02)
[2019-11-05] MEDS: MAGIC MOUTHWASH (ADULT) PO SCH ×8 (08:02→20:30)
[2019-11-05] MEDS: ENOXAPARIN 40 MG/0.4 ML (LOVENOX) SYR SC SCH ×2 (08:02→20:29)
[2019-11-05] MEDS: VITAMIN D3 25 MCG (1,000 UNITS) TABLET PO SCH (08:02)
[2019-11-05] MEDS: BACITRACIN OINTMENT 28 GM TUBE TOP SCH ×2 (08:57→20:31)
[2019-11-05] MEDS: DOCUSATE SODIUM 100 MG (COLACE) CAP PO SCH ×2 (08:57→20:28)
[2019-11-05] MEDS: polyethylene glycoL POWDER 17 GM (MIRALAX) PACK PO SCH ×2 (08:57→20:28)
[2019-11-05] MEDS: SENNA W/DOCUSATE (SENOKOT S) TABLET PO SCH ×2 (08:57→20:29)
--- NOTE | 2019-11-05 09:14 | Physical Therapy Daily Note ---
PT Daily Note-Current Subjective Patient in recliner pre tx, agrees to PT, has no complaints of pain. Appearance Patient in recliner post tx with nurse call, phone, tray, all needs met. Patient is now independent with ambulation using a rolling walker, nurse notified. Mental Status Patient Orientation: Normal For Age Transfers SCALE: Activities may be completed with or without assistive devices. 6-Kajcoepwfu-iguwjah completes the activity by him/herself with no assistance from a helper. 5-Set-up or Clean-up Assistance-helper sets up or cleans up; patient completes activity. [place] assists only prior to or following the activity. 4-Supervision or Touching Assistance-helper provides verbal cues and/or touching/steadying and/or contact guard assistance as patient completes activity. Assistance may be provided throughout the activity or intermittently. 3-Partial/Moderate Assistance-helper does LESS THAN HALF the effort. [place] lifts, holds or supports trunk or limbs, but provides less than half the effort. 2-Substantial/Maximal Assistance-helper does MORE THAN HALF the effort. [place] lifts or holds trunk or limbs and provides more than half the effort. 5-Nytrswlku-hjwhul does ALL the effort. Patient does none of the effort to complete the activity. Or, the assistance of 2 or more helpers is required for the patient to complete the activity. If activity was not attempted, code reason: 7-Patient Refused. 9-Not Applicable-not attempted and the patient did not perform the activity before the current illness, exacerbation or injury. 10-Not Attempted due to Environmental Limitations-(lack of equipment, weather restraints, etc.). 88-Not Attempted due to Medical Conditions or Safety Concerns. Roll Left & Right (QC): 6 Sit to Lying (QC): 6 Lying to Sitting/Side of Bed(Q: 6 Sit to Stand (QC): 6 Chair/Ryz-ke-Glzap Xfer(QC): 6 Toilet Transfer (QC): 6 Car Transfer (QC): 6 Patient performs bed mobility with independence, transfers with independence, car transfer with independence. No unsteadiness or LOB, no cues needed for safety. Weight Bearing Right Lower Extremity: Right Full Weight Bearing Left Lower Extremity: Left Full Weight Bearing Gait Training Distance: 1000' Walk 10 feet (QC): 6 Walk 50 ft with 2 Turns(QC): 6 Walk 150 ft (QC): 6 Walking 10ft/uneven surface-QC: 6 Gait Assistive Device: FWW Patient can ambulate 1000' with a rolling walker with independence (including 50' with at least 2 turns of 90 degrees and 10' over an uneven surface). Patient ambulates at a fair pace and steady. Wheelchair Training Does the Pt Use a Wheelchair?: No Stair Training Stair Training: Handrails/: 2 handrails #of Steps: 12 1 Step (curb) (QC): 4 4 Steps (QC): 4 12 Steps (QC): 4 Stairs: Pattern: Step to Patient can go up and down 12 steps using 2 handrails with SBA. Balance Picking up an Object (QC): 6 Exercises Standing: Hip Abduction, Heel/toe raises, Marching, Mini squats Standing Reps: 15 NuStep Minutes: 15 NuStep Workload: 5 Treatments bed mobility and transfers, ambulation, functional strengthening, stair training Assessment Current Status: Fair Progress Patient has quickly improved in all areas of functional mobility. She does still have impaired endurance and gets SOB with activity but recovers with a rest break. PT Short Term Goals Short Term Goals Time Frame: Nov 04, 2019 Roll Left & Right: 3 Sit to lyin Lying to sitting on side of be: 3 Sit to stand: 3 Chair/zfr-dy-yjfai transfer: 3 Walk 10 feet: 3 PT Half-Way Goals Production Sampler Goals PT Half-Way Goals Time Frame: November 18, 2019 Roll Left & Right (QC): 4 Sit to Lying (QC): 4 Lying-Sitting on Side/Bed(QC): 4 Sit to Stand (QC): 4 Chair/Xnm-pc-Egrle Xfer(QC): 4 Toilet Transfer (QC): 4 Car Transfer (QC): 4 Does the Patient Walk: Yes Walk 10 feet (QC): 4 Walk 50ft with 2 Turns (QC): 4 Walk 150 ft (QC): 88 Walking 10ft on Uneven Surface: 88 1 Step (curb) (QC): 3 4 Steps (QC): 88 12 Steps (QC): 88 Picking up an Object (QC): 88 Wheel 50 feet with 2 turns (QC: 6 Wheel 150 feet: 6 PT Plan Problem List Problem List: Activity Tolerance, Functional Strength, Safety, Balance, Gait, Transfer Treatment/Plan Treatment Plan: Continue Plan of Care Treatment Plan: Bed Mobility, Education, Functional Activity Shalonda, Functional Strength, Group Therapy, Gait, Safety, Therapeutic Exercise, Transfers Treatment Duration: November 18, 2019 Frequency: Modified Program (IRF) Estimated Hrs Per Day: 1 hour per day Patient and/or Family Agrees t: Yes Safety Risks/Education Patient Education: Gait Training, Transfer Techniques, Steps, Correct Positioning, Safety Issues Teaching Recipient: Patient Teaching Methods: Demonstration, Discussion Response to Teaching: Reinforcement Needed Time/GCodes Time In: 0800 Time Out: 914 Total Billed Treatment Time: 75 Total Billed Treatment 1 visit GT 15' FA 30' EX 30' SHANNON WESTFALL PT Nov 05, 2019 09:14
--- NOTE | 2019-11-05 10:09 | PM&R Progress Note ---
Subjective HPI/CC On Admission Date Seen by Provider: Nov 05, 2019 Time Seen by Provider: 10:15 Subjective/Events-last exam Pt now Ad sarah up in the room on the unit on the unit Magic Mouthwash will be given to her at DC Will need to have probiotic since that seems to be working well for her. That will be sent in to [facility] Exacter No falls No pain Arranging wound care with PT and Dr. Judd follow up I updated Dr. Bryant on her DC plan for tomorrow Checked meds and labs Reviewed therapy notes Conferred with food services coordinator of Systems General: Fatigue Objective Exam Vital Signs Vital Signs Date Time Temp Pulse Resp B/P (MAP) Pulse Ox O2 Delivery O2 Flow Rate FiO2 11/06/19 05:44 36.4 80 20 149/84 (105) 94 Room Air Capillary Refill : Less Than 3 Seconds General Appearance: No Apparent Distress, WD/WN, Chronically ill, Obese HEENT: PERRL/EOMI, Normal ENT Inspection, Pharynx Normal Neck: Full Range of Motion, Normal Inspection, Non Tender, Supple, Carotid Bruit Respiratory: Chest Non Tender, Lungs Clear, Normal Breath Sounds, No Accessory Muscle Use, No Respiratory Distress Cardiovascular: Regular Rate, Rhythm, No Edema, No Gallop, No JVD, No Murmur, Normal Peripheral Pulses Gastrointestinal: Normal Bowel Sounds, No Organomegaly, No Pulsatile Mass, Non Tender, Soft Back: Normal Inspection, No CVA Tenderness, No Vertebral Tenderness Extremity: Normal Capillary Refill, Normal Inspection, Normal Range of Motion, Non Tender, No Calf Tenderness, No Pedal Edema Neurologic/Psychiatric: Alert, Oriented x3, No Motor/Sensory Deficits, Normal Mood/Affect, relief salesperson II-XII Norm as Tested, Abnormal Gait, Motor Weakness (generalized weakness all extremities 3/5) Skin: Normal Color, Warm/Dry Lymphatic: No Adenopathy Results/Procedures Lab Patient resulted labs reviewed. FIM Transfers Therapy Code Descriptions/Definitions Functional [place] Measure: 0=Not Assessed/NA 4=Minimal Assistance 1=Total Assistance 5=Supervision or Setup 2=Maximal Assistance 6=Modified [place] 3=Moderate Assistance 7=Complete IndependenceSCALE: Activities may be completed with or without assistive devices. 0-Wluxqkncxh-mchqrco completes the activity by him/herself with no assistance from a helper. 5-Set-up or Clean-up Assistance-helper sets up or cleans up; patient completes activity. [place] assists only prior to or following the activity. 4-Supervision or Touching Assistance-helper provides verbal cues and/or touching/steadying and/or contact guard assistance as patient completes activity. Assistance may be provided throughout the activity or intermittently. 3-Partial/Moderate Assistance-helper does LESS THAN HALF the effort. [place] lifts, holds or supports trunk or limbs, but provides less than half the effort. 2-Substantial/Maximal Assistance-helper does MORE THAN HALF the effort. [place] lifts or holds trunk or limbs and provides more than half the effort. 4-Tgibmsfei-egzops does ALL the effort. Patient does none of the effort to complete the activity. Or, the assistance of 2 or more helpers is required for the patient to complete the activity. If activity was not attempted, code reason: 7-Patient Refused. 9-Not Applicable-not attempted and the patient did not perform the activity before the current illness, exacerbation or injury. 10-Not Attempted due to Environmental Limitations-(lack of equipment, weather restraints, etc.). 88-Not Attempted due to Medical Conditions or Safety Concerns. Roll Left to Right (QC): 6 Sit to Lying (QC): 6 Sit to Stand (QC): 6 Chair/Vpj-rg-Mosya Xfer(QC): 6 Car Transfer (QC): 6 Gait Training Does the Patient Walk?: Yes Distance: 1000' Walk 10 feet (QC): 6 Walk 50 ft with 2 Turns(QC): 6 Walk 150 ft (QC): 6 Walking 10ft/uneven surface-QC: 6 Gait Persons Needed: 1 Gait Assistive Device: FWW Wheelchair Training Does the Pt Use a Wheelchair?: No Wheel 50 ft with 2 turns (QC): 1 Wheel 150 ft (QC): 1 Type of Wheelchair: Manual Stair Training Stair Training: Handrails/: 2 handrails #of Steps: 12 1 Step (curb) (QC): 4 4 Steps (QC): 4 12 Steps (QC): 4 Stairs: Pattern: Step to Balance Picking up an Object (QC): 6 ADL-Treatment Eating (QC): 6 (independent per pt report) Oral Hygiene (QC): 6 Shower/Bathe Self (QC): 4 (SBA) Upper Body Dressing (QC): 5 Lower Body Dressing (QC): 4 (SBA) On/Off Footwear (QC): 5 (set up, pt able to put on socks and tennis shoes) Toileting Hygiene (QC): 4 (SBA) Toilet Transfer (QC): 4 (SBA) Assessment/Plan Assessment and Plan Assess & Plan/Chief Complaint Assessment: Critical illness myopathy Coronavirus s/p treatment and out of isolation s/p VDRF Lovenox for DVT PPx Facial abrasions from vent mask Tongue ulcer placed on magic mouthwash Plan: IRF protocol Monitor labs Dramatic improvement Wound care to facial wounds from vent mask Magic mouthwash Probiotic working well Reviewed Saturday labs DC Saturday (1) Myopathy (2) Coronavirus infection Status: Acute JASE MAGALLANES DO Nov 05, 2019 10:09
--- NOTE | 2019-11-05 11:08 | Occupational Ther Daily Note ---
OT Current Status-Daily Note Subjective Pt alert, sitting in recliner. Pt is up ad sarah in room. Pt agrees to therapy. No c/o pain. Mental Status/Objective Patient Orientation: Person, Place, Time, Situation Attachments: Central Line ADL-Treatment Pt agrees to shower. Using FWW, pt able to retrieve clothing and transport. Pt transferred into shower using FWW, grabbars and shower bench. Pt completed shower using hand held shower, shower bench and grabbars mod independently. Pt dressed upper/lower body, independently. Pt sat at sink due to decreased activity tolerance to complete oral care, modified independent. Using clinical judgement, pt has demonstrated ability to complete toileting and transfer with modified independence using grabbar and FWW. Pt able to don/doff footwear and tie shoes. Therapy Code Descriptions/Definitions Functional [place] Measure: 0=Not Assessed/NA 4=Minimal Assistance 1=Total Assistance 5=Supervision or Setup 2=Maximal Assistance 6=Modified [place] 3=Moderate Assistance 7=Complete IndependenceSCALE: Activities may be completed with or without assistive devices. 4-Arpsdxngil-dxoksxn completes the activity by him/herself with no assistance from a helper. 5-Set-up or Clean-up Assistance-helper sets up or cleans up; patient completes activity. Elmo assists only prior to or following the activity. 4-Supervision or Touching Assistance-helper provides verbal cues and/or touching/steadying and/or contact guard assistance as patient completes activity. Assistance may be provided throughout the activity or intermittently. 3-Partial/Moderate Assistance-helper does LESS THAN HALF the effort. Elmo lifts, holds or supports trunk or limbs, but provides less than half the effort. 2-Substantial/Maximal Assistance-helper does MORE THAN HALF the effort. Elmo lifts or holds trunk or limbs and provides more than half the effort. 6-Qveuajusf-ahcwee does ALL the effort. Patient does none of the effort to complete the activity. Or, the assistance of 2 or more helpers is required for the patient to complete the activity. If activity was not attempted, code reason: 7-Patient Refused. 9-Not Applicable-not attempted and the patient did not perform the activity before the current illness, exacerbation or injury. 10-Not Attempted due to Environmental Limitations-(lack of equipment, weather restraints, etc.). 88-Not Attempted due to Medical Conditions or Safety Concerns. Eating (QC): 6 (Using clinical judgement, pt able to open packages and containers by self then use regular utensils to eat.) Oral Hygiene (QC): 6 Bathing Location: L Arm, R Arm, L Upper Leg, R Upper Leg, L Lower Leg (including foot), R Lower Leg (including foot), Chest, Abdomen, Buttocks, Perineal Area Shower/Bathe Self (QC): 6 Upper Body Dressing (QC): 6 Lower Body Dressing (QC): 6 On/Off Footwear: 6 Toileting Hygiene (QC): 6 Toilet Transfer (QC): 6 Other Treatment Pt ambulated to therapy gym using FWW. Pt completed 10 min on arm pulleys, 3 min shldr flexion, 3 min shldr abd/add, 4 min shldr flexion with 1# wt. Pt then completed resistive clothes pins 2x's with each hand. Pt then ambulated back to room using FWW. After session, pt sitting in recliner with call light/phone in reach. All needs met in room. OT Short Term Goals Short Term Goals Time Frame: Nov 04, 2019 Oral hygiene: 3 Toileting hygiene: 3 Upper body dressin Lower body dressin OT Assisted Goals Assisted Goals Time Frame: November 18, 2019 Eating (QC): 6 (met) Oral Hygiene (QC): 6 (met) Toileting Hygiene (QC): 5 (met) Shower/Bathe Self (QC): 4 (met) Upper Body Dressing (QC): 5 (met) Lower Body Dressing (QC): 5 (met) On/Off Footwear (QC): 5 (met) Additional Goals: 1-Demonstrate ADL Tasks, 2-Verbalize Understanding, 3- ImproveStrength/Shalonda 1=Demonstrate adherence to instructed precautions during ADL tasks. 2=Patient will verbalize/demonstrate understanding of assistive devices/modifications for ADL. 3=Patient will improve strength/tolerance for activity to enable patient to perform ADL's. OT Education/Plan Problem List/Assessment Assessment: Decreased Activ Tolerance, Decreased UE Strength, Impaired Self-Care Skills, Restricted Funct UE ROM Discharge Recommendations Plan/Recommendations: Continue POC Treatment Plan/Plan of Care Patient would benefit from OT for education, treatment and training to promote independence in ADL's, mobility, safety and/or upper extremity function for ADL's. Plan of Care: ADL Retraining, Functional Mobility, Group Exercise/Act as Ind, UE Funct Exercise/Act, UE Neuromus Re-Ed/Coord Treatment Duration: November 18, 2019 Frequency: Modified Program (IRF) Estimated Hrs Per Day: Other Agreement: Yes Rehab Potential: Fair Time/GCodes Start Time: 10:20 Stop Time: 11:40 Total Time Billed (hr/min): 80 Billed Treatment Time 1 visit-ADL 4 (60 min) EX 1 (20 min) MELLY ORDAZ Nov 05, 2019 11:08
--- NOTE | 2019-11-05 14:57 | Speech Therapy Daily Note ---
Speech Daily Progress Note Subjective Date Seen by Provider: Nov 05, 2019 Time Seen by Provider: 00:30 Patient was resting in her recliner. She states she is so happy to finally be returning home tomorrow. Objective Patient completed a series of problem solving tasks related to her return home with 100% given no cues. Assessment Assessment Current Status: Excellent Progress Treatment Plan Discontinue ST, Goals Met Speech Short Term Goals Short Term Goals Short Term Goals 1) Patient will complete memory tasks related to her daily needs at 90% or greater with minimal cues. 2) Patient will complete executive function tasks related to her daily needs at 90% or greater with minimal cues. 3) Patient will complete word finding tasks related to her daily needs at 90% or greater with minimal cues. 4) Patient will complete safety awareness tasks related to her daily needs at 90% or greater with minimal cues. Speech Motion Designer Goals [facility] Goals Patient will improve cognitive-communication necessary for safety and daily living tasks with minimal assist. Speech-Plan Patient/Family Goals Patient/Family Goals: Patient is scheduled to return home tomorrow. Treatment Plan Speech Therapy Treatment Plan: Discontinue ST, Goals Met Treatment Duration: November 13, 2019 Frequency: 5 times per week Estimated Hrs Per Day: .25 hour per day Rehab Potential: Fair Barriers to Learning: None at this time. Pt/Family Agrees to Plan: Yes Safety Risks/Education Teaching Recipient: Patient Teaching Methods: Demonstration, Discussion Response to Teaching: Verbalize Understanding, Return Demonstration Education Topics Provided: Continued safety upon her return home. Time Speech Therapy Time In: 15:00 Speech Therapy Time Out: 15:30 Total Billed Time: 30 Billed Treatment Time 1, SLTS No QUALITY CODES: EXPRESSION OF IDEAS/WANTS: 4 UNDERSTANDING VERBAL CONTENT: 4 BRIEF INTERVIEW MENTAL STATUS: YES REPETITION OF 3 WORDS: 3 TEMPORAL ORIENTATION: YEAR: CORRECT, MONTH: CORRECT, DAY: CORRECT RECALL: SOCK: YES, COLOR: YES, BED: YES MEMORY/RECALL ABILITY: SEASON, LOCATION OF ROOM, STAFF NAMES, THAT SHE IS IN THE HOSPITAL PATICECILY Nov 05, 2019 14:57
--- NOTE | 2019-11-05 15:07 | NUR ---
CM/SS CONCURRENT DOCUMENTATION and DISCHARGE PLANNING Final discharge planning. Patient has signed [place] Authorization for Photo and Media Release as it relates to her planned [place] for exit. Charted, copy to patient, copy to Ob/Gyn Physician, Inpatient Civil Clerk, SHUKRI. OP Therapy appointment already made, DME acquired. No other needs in relation to discharge other than her special send off.
[2019-11-05 16:27] VITALS: BP 134/83
[2019-11-05] MEDS: MELATONIN 3 MG TABLET PO PRN (20:29)
[2019-11-05] MEDS: ARTIFICAL TEARS 0.4 ML UNIT DOSE (REFRESH PLUS) OU PRN (20:29)
[2019-11-05] MEDS ORDERED: LACT1CAP7 PO (21:25)
[2019-11-06] MEDS: CATHETER FLUSH 10 ML SYR IV SCH (05:14)
[2019-11-06 05:44] VITALS: BP 149/84
[2019-11-06] MEDS: ASCORBIC ACID (VIT C) 500 MG TABLET PO SCH (05:54)
[2019-11-06] MEDS: ARTIFICAL TEARS 0.4 ML UNIT DOSE (REFRESH PLUS) OU PRN (05:55)
--- NOTE | 2019-11-06 06:50 | Discharge Summary ---
Diagnosis/Chief Complaint Date of Admission Oct 28, 2019 at 11:00 Date of Discharge Discharge Date: November 06, 2019 Discharge Diagnosis Assessment: Critical illness myopathy Coronavirus s/p treatment and out of isolation s/p VDRF Lovenox for DVT PPx Facial abrasions from vent mask Tongue ulcer placed on magic mouthwash Plan: IRF protocol Monitor labs Dramatic improvement Wound care to facial wounds from vent mask Magic mouthwash Probiotic working well Reviewed Saturday labs DC Saturday (1) Myopathy (2) Coronavirus infection Status: Acute Discharge Summary Discharge Physical Examination Allergies: Coded Allergies: cefotaxime (Verified Allergy, Intermediate, HIVES, 10/14/15) Vitals & I&Os Vital Signs Date Time Temp Pulse Resp B/P (MAP) Pulse Ox O2 Delivery O2 Flow Rate FiO2 11/06/19 10:00 36.4 80 20 149/84 94 Room Air General Appearance: Alert, Oriented X3, Cooperative Respiratory: Clear to Auscultation Cardiovascular: Regular Rate Neuro: Normal Gait, Normal Speech, Strength at 5/5 X4 Ext Psych/Mental Status: Mental Status NL Hospital Course Was the Problem List Reviewed?: Yes Hospital course: patient had an uneventful and productive 9 day course in IRF after suffering severe critical illness myopathy after VDRF due to COVID-19. Patient was extremely weak when she arrived on the unit but was able to participate in all therapies and wean off O2. Loose stools required probiotic with good results. Lovenox maintained as dosed in ICU and will remain until DC by PCP. Facial wounds from vent mask required wound care Dr Torres with conservative management ordered. Overall her stay was uncomplicated and she was able to regain enough function to safely return home with her family. Labs (last 24 hrs) Laboratory Tests 10/29/19 05:50: White Blood Count 7.7, Red Blood Count 4.29L, Hemoglobin 12.6, Hematocrit 37, Mean Corpuscular Volume 87, Mean Corpuscular Hemoglobin 29, Mean Corpuscular Hemoglobin Concent 34, Red Cell Distribution Width 15.1H, Platelet Count 276, Mean Platelet Volume 10.9H, Neutrophils (%) (Auto) 62, Lymphocytes (%) (Auto) 24, Monocytes (%) (Auto) 13H, Eosinophils (%) (Auto) 1, Basophils (%) (Auto) 0, Neutrophils # (Auto) 4.8, Lymphocytes # (Auto) 1.9, Monocytes # (Auto) 1.0, Eosinophils # (Auto) 0.1, Basophils # (Auto) 0.0, Sodium Level 141, Potassium Level 3.6, Chloride Level 109H, Carbon Dioxide Level 22, Anion Gap 10, Blood Urea Nitrogen 11, Creatinine 0.66, Estimat Glomerular Filtration Rate > 60, BUN/Creatinine Ratio 17, Glucose Level 98, Calcium Level 9.6, Corrected Calcium 10.2H, Total Bilirubin 1.0, Aspartate Amino Transf (AST/SGOT) 40H, Alanine Aminotransferase (ALT/SGPT) 69H, Alkaline Phosphatase 80, Total Protein 5.8L, Albumin 3.2 11/02/19 06:10: White Blood Count 4.2L, Red Blood Count 3.99L, Hemoglobin 11.7, Hematocrit 36, Mean Corpuscular Volume 89, Mean Corpuscular Hemoglobin 29, Mean Corpuscular Hemoglobin Concent 33, Red Cell Distribution Width 15.6H, Platelet Count 231, Mean Platelet Volume 11.1H, Neutrophils (%) (Auto) 45, Lymphocytes (%) (Auto) 39, Monocytes (%) (Auto) 13H, Eosinophils (%) (Auto) 2, Basophils (%) (Auto) 0, Neutrophils # (Auto) 1.9, Lymphocytes # (Auto) 1.6, Monocytes # (Auto) 0.5, Eosinophils # (Auto) 0.1, Basophils # (Auto) 0.0, Sodium Level 144, Potassium Level 3.8, Chloride Level 112H, Carbon Dioxide Level 22, Anion Gap 10, Blood Urea Nitrogen 9, Creatinine 0.68, Estimat Glomerular Filtration Rate > 60, BUN/Creatinine Ratio 13, Glucose Level 87, Calcium Level 9.7, Corrected Calcium 10.3H, Total Bilirubin 0.8, Aspartate Amino Transf (AST/SGOT) 52H, Alanine Aminotransferase (ALT/SGPT) 106H, Alkaline Phosphatase 79, Total Protein 5.8L, Albumin 3.3 Pending Labs Laboratory Tests 10/29/19 05:50: White Blood Count 7.7, Red Blood Count 4.29, Hemoglobin 12.6, Hematocrit 37, Mean Corpuscular Volume 87, Mean Corpuscular Hemoglobin 29, Mean Corpuscular Hemoglobin Concent 34, Red Cell Distribution Width 15.1, Platelet Count 276, Mean Platelet Volume 10.9, Neutrophils (%) (Auto) 62, Lymphocytes (%) (Auto) 24, Monocytes (%) (Auto) 13, Eosinophils (%) (Auto) 1, Basophils (%) (Auto) 0, Neutrophils # (Auto) 4.8, Lymphocytes # (Auto) 1.9, Monocytes # (Auto) 1.0, Eosinophils # (Auto) 0.1, Basophils # (Auto) 0.0, Sodium Level 141, Potassium Level 3.6, Chloride Level 109, Carbon Dioxide Level 22, Anion Gap 10, Blood Urea Nitrogen 11, Creatinine 0.66, Estimat Glomerular Filtration Rate > 60, BUN/Creatinine Ratio 17, Glucose Level 98, Calcium Level 9.6, Corrected Calcium 10.2, Total Bilirubin 1.0, Aspartate Amino Transf (AST/SGOT) 40, Alanine Aminotransferase (ALT/SGPT) 69, Alkaline Phosphatase 80, Total Protein 5.8, Albumin 3.2 11/02/19 06:10: White Blood Count 4.2, Red Blood Count 3.99, Hemoglobin 11.7, Hematocrit 36, Mean Corpuscular Volume 89, Mean Corpuscular Hemoglobin 29, Mean Corpuscular Hemoglobin Concent 33, Red Cell Distribution Width 15.6, Platelet Count 231, Mean Platelet Volume 11.1, Neutrophils (%) (Auto) 45, Lymphocytes (%) (Auto) 39, Monocytes (%) (Auto) 13, Eosinophils (%) (Auto) 2, Basophils (%) (Auto) 0, Neutrophils # (Auto) 1.9, Lymphocytes # (Auto) 1.6, Monocytes # (Auto) 0.5, Eosinophils # (Auto) 0.1, Basophils # (Auto) 0.0, Sodium Level 144, Potassium Level 3.8, Chloride Level 112, Carbon Dioxide Level 22, Anion Gap 10, Blood Urea Nitrogen 9, Creatinine 0.68, Estimat Glomerular Filtration Rate > 60, BUN/Creatinine Ratio 13, Glucose Level 87, Calcium Level 9.7, Corrected Calcium 10.3, Total Bilirubin 0.8, Aspartate Amino Transf (AST/SGOT) 52, Alanine Aminotransferase (ALT/SGPT) 106, Alkaline Phosphatase 79, Total Protein 5.8, Albumin 3.3 Discharge Home Medications: Active Scripts Active Acidophilus-Pectin Capsule (Lactobacillus Acidophilus/Pect) 1 Each Capsule 2 Each PO TIDWM Enoxaparin Sodium 40 Mg/0.4 Ml Syringe 40 Mg SC Q12HR Instructions to patient/family Please see electronic discharge instructions given to patient. Diagnosis/Problems Diagnosis/Problems (1) Myopathy (2) Coronavirus infection Status: Acute Clinical Quality Measures DVT/VTE Risk/Contraindication: Risk Factor Score Per Nursin RFS Level Per Nursing on Admit: 4+=Very High JASE MAGALLANES DO November 06, 2019 06:50
[2019-11-06] MEDS ORDERED: RELABEL FOR HOME USE MC SCH (07:00)
[2019-11-06] MEDS: BACITRACIN OINTMENT 28 GM TUBE TOP SCH (07:51)
[2019-11-06] MEDS: LACTOBACILLUS ACIDOPHILUS (PROBIOTIC) CAPSULE PO SCH (07:52)
[2019-11-06] MEDS: VITAMIN D3 25 MCG (1,000 UNITS) TABLET PO SCH (07:52)
[2019-11-06] MEDS: ZINC SULFATE 220 MG CAPSULE PO SCH (07:52)
[2019-11-06] MEDS: ENOXAPARIN 40 MG/0.4 ML (LOVENOX) SYR SC SCH (07:52)
[2019-11-06] MEDS: MAGIC MOUTHWASH (ADULT) PO SCH ×4 (07:53)
[2019-11-06] MEDS: DOCUSATE SODIUM 100 MG (COLACE) CAP PO SCH (09:00)
[2019-11-06] MEDS: SENNA W/DOCUSATE (SENOKOT S) TABLET PO SCH (09:00)
[2019-11-06] MEDS: polyethylene glycoL POWDER 17 GM (MIRALAX) PACK PO SCH (09:00)
[2019-11-06 10:00] VITALS: BP 149/84
--- NOTE | 2019-11-06 10:59 | Therapy Team Discharge Summary ---
Therapy Discharge Summary Discharge Recommendations Date of Discharge 11/06/2019 Therapy D/C Recommendations: Physical Therapy Outpatient Physical Therapy This patient admitted to ARU from acute post a lengthy and complicated acute hospital stay due to COVID 19 with hypoxia and resultant debility. 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 Upon admission to ARU, she was max assist with bed mobility and transfers, even requiring assist of 2 at times. She was unable to ambulate or perform stairs. Treatment has consisted of functional LE strength and balance training as well as functional activity tolerance progression to improve bed mobility, transfers and gait. At discharge, she is mod indep with all mobility and able to walk with a walker without assist. She does require SBA on stairs. She has made excellent progress throughout her course of therapy and has achieved all goals to a satisfactory level to return home. She has been motivated and compliant. Pt wishes to follow with outpatient PT . She is discharging home with family with an excellent outcome expected. Occupational Therapy Decreased Activ Tolerance, Decreased UE Strength, Impaired Self-Care Skills, Restricted Funct UE ROM PT Landfill Grader Goals Landfill Grader Goals PT Longterm Goals Time Frame: November 18, 2019 Roll Left to Right (QC): 4 Sit to Lying (QC): 4 Lying-Sitting on Side/Bed(QC): 4 Sit to Stand (QC): 4 Chair/Qgt-kp-Rhxpg Xfer(QC): 4 Car Transfer (QC): 4 Does the Patient Walk: Yes Walk 10 feet (QC): 4 Walk 10ft-Uneven Surface(QC): 88 Walk 50ft with 2 Turns (QC): 4 Walk 150 ft (QC): 88 Wheel 50 feet with 2 turns (QC: 6 1 Step (curb) (QC): 3 4 Steps (QC): 88 12 Steps (QC): 88 Picking up an Object (QC): 88 All goals exceeded. She is mod indep with all mobility, except SBA on stairs. OT Landfill Grader Goals Landfill Grader Goals Time Frame: November 18, 2019 Eating (QC): 6 (met) Oral Hygiene (QC): 6 (met) Shower/Bathe Self (QC): 4 (met) Upper Body Dressing (QC): 5 (met) Lower Body Dressing (QC): 5 (met) On/Off Footwear (QC): 5 (met) Toileting Hygiene (QC): 5 (met) Toilet/Commode Transfer (QC): 4 Additional Goals: 1-Demonstrate ADL Tasks, 2-Verbalize Understanding, 3-ImproveStrength/Shalonda 1=Demonstrate adherence to instructed precautions during ADL tasks. 2=Patient will verbalize/demonstrate understanding of assistive devices/modifications for ADL. 3=Patient will improve strength/tolerance for activity to enable patient to per form ADL's. Speech Longterm Goals Longterm Goals Patient will improve cognitive-communication necessary for safety and daily living tasks with minimal assist. MELLY VARGAS PT November 06, 2019 10:59
--- NOTE | 2019-11-06 11:33 | NUR ---
CM/SS DISCHARGE Discharge went as planned, patient and family reunited at main entrance to hospital. Multiple staff attended for celebration send off due to Covid19+ illness, care and treatment since October 10 admission.
--- NOTE | 2019-11-06 11:58 | Therapy Team Discharge Summary ---
Therapy Discharge Summary Discharge Recommendations Date of Discharge Therapy D/C Recommendations: Physical Therapy Outpatient Occupational Therapy Pt admitted to ARU following acute hospitalization for COVID-19 with hypoxia resulting in severe debility. On admission pt required total assist for LE dressing, footwear, and toileting; max assist for bathing, UE dressing, and oral care. Skilled OT intervention focused on ADL training, transfers, strengthening, and safety. Pt made good progress with therapy and by discharge is completing basic ADLs with modified independence. Pt met all OT LTG. Pt discharged home with family support. D/c ARU OT at this time. Decreased Activ Tolerance, Decreased UE Strength, Impaired Self-Care Skills, Restricted Funct UE ROM PT Mcfp Goals Mcfp Goals PT Mcfp Goals Time Frame: November 18, 2019 Roll Left to Right (QC): 4 Sit to Lying (QC): 4 Lying-Sitting on Side/Bed(QC): 4 Sit to Stand (QC): 4 Chair/Tml-px-Imbeo Xfer(QC): 4 Car Transfer (QC): 4 Does the Patient Walk: Yes Walk 10 feet (QC): 4 Walk 10ft-Uneven Surface(QC): 88 Walk 50ft with 2 Turns (QC): 4 Walk 150 ft (QC): 88 Wheel 50 feet with 2 turns (QC: 6 1 Step (curb) (QC): 3 4 Steps (QC): 88 12 Steps (QC): 88 Picking up an Object (QC): 88 OT Public Health Dentist Goals Mcfp Goals Time Frame: November 18, 2019 Eating (QC): 6 (met) Oral Hygiene (QC): 6 (met) Shower/Bathe Self (QC): 4 (met) Upper Body Dressing (QC): 5 (met) Lower Body Dressing (QC): 5 (met) On/Off Footwear (QC): 5 (met) Toileting Hygiene (QC): 5 (met) Toilet/Commode Transfer (QC): 4 Additional Goals: 1-Demonstrate ADL Tasks, 2-Verbalize Understanding, 3- ImproveStrength/Shalonda 1=Demonstrate adherence to instructed precautions during ADL tasks. 2=Patient will verbalize/demonstrate understanding of assistive devices/modifications for ADL. 3=Patient will improve strength/tolerance for activity to enable patient to perform ADL's. Speech Mcfp Goals Mcfp Goals Patient will improve cognitive-communication necessary for safety and daily living tasks with minimal assist. URIEL REILLY OT November 06, 2019 11:57
--- NOTE | 2019-11-06 13:17 | Therapy Team Discharge Summary ---
Therapy Discharge Summary Discharge Recommendations Date of Discharge Therapy D/C Recommendations: Physical Therapy Outpatient Occupational Therapy Decreased Activ Tolerance, Decreased UE Strength, Impaired Self-Care Skills, Restricted Funct UE ROM Speech-Language Pathology Patient was admitted to the ARU s/p COVID-19 for strengthening and improvement to her prior level. Patient received skilled ST with great success and met all of her goals. Patient was discharged to her home with her this date. She was discharged from skilled ST as well. PT Correction Goals Correction Goals PT Correction Goals Time Frame: November 18, 2019 Roll Left to Right (QC): 4 Sit to Lying (QC): 4 Lying-Sitting on Side/Bed(QC): 4 Sit to Stand (QC): 4 Chair/Xbt-mo-Xnxvw Xfer(QC): 4 Car Transfer (QC): 4 Does the Patient Walk: Yes Walk 10 feet (QC): 4 Walk 10ft-Uneven Surface(QC): 88 Walk 50ft with 2 Turns (QC): 4 Walk 150 ft (QC): 88 Wheel 50 feet with 2 turns (QC: 6 1 Step (curb) (QC): 3 4 Steps (QC): 88 12 Steps (QC): 88 Picking up an Object (QC): 88 OT Lime Filter Operator Goals Lime Filter Operator Goals Time Frame: November 18, 2019 Eating (QC): 6 (met) Oral Hygiene (QC): 6 (met) Shower/Bathe Self (QC): 4 (met) Upper Body Dressing (QC): 5 (met) Lower Body Dressing (QC): 5 (met) On/Off Footwear (QC): 5 (met) Toileting Hygiene (QC): 5 (met) Toilet/Commode Transfer (QC): 4 Additional Goals: 1-Demonstrate ADL Tasks, 2-Verbalize Understanding, 3-ImproveStrength/Shalonda 1=Demonstrate adherence to instructed precautions during ADL tasks. 2=Patient will verbalize/demonstrate understanding of assistive devices/modifications for ADL. 3=Patient will improve strength/tolerance for activity to enable patient to per form ADL's. Speech Correction Goals Lime Filter Operator Goals Patient will improve cognitive-communication necessary for safety and daily living tasks with minimal assist. CECILY KRUEGER November 06, 2019 13:17
== END 2019-11-06 10:30 | disposition home or self-care (01) | DRG 91 ==
PROVIDERS: ADMIT Internal Medicine; ATTEND Internal Medicine
DX: G72.81 Critical illness myopathy (principal); L89.813 Pressure ulcer of head, stage 3; F41.9 Anxiety disorder, unspecified; F32.9 Major depressive disorder, single episode, unspecified; S00.81XD Abrasion of other part of head, subsequent encounter; K14.0 Glossitis; Z86.19 Personal history of other infectious and parasitic diseases
CPT/HCPCS: 36415; 80053; 85025

== ENCOUNTER → 2019-11-12 | Outpatient (CLI) | payer BC ==
[~2019-11-12] MED LIST changes: -ALPRAZolam 0.25 MG (XANAX) TAB PO PRN; -BISACODYL 10 MG SUPP (DULCOLAX) PR PRN; -CALCIUM CARBONATE 500 MG (TUMS) TAB.CHEW PO PRN; -DOCUSATE SODIUM 100 MG (COLACE) CAP PO PRN; +ENOX40DI8 SC; -FLEET ENEMA ADULT 1 EA BTL PR PRN; +LACT1CAP7 PO; -LACTULOSE SYRUP 10GM/15ML (ENULOSE) 30ML UDC PO PRN; -LOPERAMIDE 2 MG (IMODIUM) TABLET PO PRN; -MELATONIN 3 MG TABLET PO PRN; -ONDANSETRON 4 MG (ZOFRAN) ORAL DISSOLVE TAB PO PRN; -ONDANSETRON 4 MG/2 ML (SDV) Z0FRAN IV PRN; -diphenhydrAMINE 25 MG TAB (BENADRYL) PO PRN; -guaiFENesin/CODEINE (ROBITUSSIN AC) 10ML UDC PO PRN
== END ==
LOC: WOUNDCARE 12:35
PROVIDERS: ATTEND Surgery
DX: L89.813 Pressure ulcer of head, stage 3 (principal)
CPT/HCPCS: 99212

== ENCOUNTER 2019-11-30 18:22 | Emergency (ER) | payer BC ==
[~2019-11-30] VITALS: Ht 150 cm; Wt 99.3 kg
[2019-11-30] MEDS ORDERED: LABETALOL HCL 20 MG/4 ML VIAL ONE (18:44)
--- NOTE | 2019-11-30 18:57 | ED Chest Pain ---
General Chief Complaint: Cardiac/General Problems Stated Complaint: HIGH BLOOD PRESSURE,PAIN IN UPPER BACK AREA Nursing Triage Note: TO ROOM VIA AMB TO ROOM 07 WITH COMPLAINTS OF HYPERTENSION AND PAIN ACROSS THE SHOULDERS X2 DAYS. PT IS RECIEVING REHAB AFTER BEING ON THE VENT FOR COVID 19. Nursing Sepsis Screen: No Definite Risk Source: patient Exam Limitations: no limitations History of Present Illness Date Seen by Provider: November 30, 2019 Time Seen by Provider: 18:37 Initial Comments Here with report of upper chest and upper back pain as well as hypertension for the last 2 days. She is in physical therapy after rehabilitation stay after hospitalization for COVID-19 infection. She was on the vent for quite some time. Denies fever, chills, nausea, vomiting or diarrhea. Became more concerned as her blood pressure continued to increase. She did take a full dose aspirin at home. She has had chest x-ray of [place] which showed some atelectasis or infiltrate in the right base but she is not currently on antibiotics. Does not complaining of being short of breath. Her main concern was regarding the elevated blood pressure she has not had that before. 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: No Associated Symptoms: No abdominal pain; back pain; No diaphoresis, No edema, No fever/chills, No heartburn, No nausea/vomiting, No shortness of breath, No weakness Allergies and Home Medications Allergies Coded Allergies: cefotaxime (Verified Allergy, Intermediate, HIVES, 10/14/15) Home Medications Enoxaparin Sodium 40 Mg/0.4 Ml Syringe, 40 MG SC Q12HR Prescribed by: JASE MAGALLANES on 11/03/192002 Lactobacillus Acidophilus/Pect 1 Each Capsule, 2 EACH PO TIDWM Prescribed by: JASE MAGALLANES on 11/05/192124 Metoprolol Tartrate 50 Mg Tablet, 50 MG PO BID Prescribed by: SUZIE FREDERICK on 11/30/192122 Patient Home Medication List Home Medication List Reviewed: Yes Review of Systems Review of Systems Constitutional: see HPI; No chills, No fever EENTM: No Symptoms Reported Respiratory: Denies Cough, Denies Shortness of Air Cardiovascular: Chest Pain; Denies Edema, Denies Lightheadedness Gastrointestinal: No Symptoms Reported Genitourinary: No Symptoms Reported Musculoskeletal: no symptoms reported Skin: no symptoms reported Psychiatric/Neurological: No Symptoms Reported All Other Systems Reviewed Negative Unless Noted: Yes Past Ewodlpi-Inyrby-Qhsshb Hx Past Med/Social Hx: Reviewed Nursing Past Med/Soc Hx Patient Social History Alcohol Use: Denies Use Recreational Drug Use: No Smoking Status: Never a Smoker 2nd Hand Smoke Exposure: No Recent Foreign Travel: No Contact w/Someone Who Travel: No Recent Infectious Disease Expo: No Recent Hopitalizations: Yes (COVID -19 positive) Immunizations Up To Date PED Vaccines UTD: Yes Seasonal Allergies Seasonal Allergies: Yes Past Medical History Surgeries: Yes (REMOVED SCAR TISSUE) Section Respiratory: Yes (RECENT INTUBATION.) Cardiac: No Neurological: No Female Reproductive Disorders: Denies Sexually Transmitted Disease: No HIV/AIDS: No Genitourinary: No Gastrointestinal: No Musculoskeletal: No Endocrine: No HEENT: No Cancer: No Psychosocial: No Integumentary: No Blood Disorders: No Adverse Reaction/Blood Tranf: No Family Medical History Reviewed Nursing Family Hx CVA 19 MOTHER Esophageal cancer 19 FATHER Physical Exam Vital Signs Vital Signs - First Documented 11/30/19 18:35 Temp 36.9 Pulse 90 Resp 18 B/P (MAP) 204/126 (152) Pulse Ox 100 O2 Delivery Room Air Capillary Refill : Less Than 3 Seconds Height, Weight, BMI Height: 5'2.00" Weight: 240lbs. 0.0oz. 108.652268nw; 44.00 BMI Method: General Appearance: No Apparent Distress, WD/WN HEENT: PERRL/EOMI, Pharynx Normal Neck: Non Tender, Supple Respiratory: Lungs Clear, Normal Breath Sounds Cardiovascular: Regular Rate, Rhythm, No Murmur Gastrointestinal: Non Tender, Soft Extremity: Normal Range of Motion, Non Tender Neurologic/Psychiatric: Alert, Oriented x3 Skin: Normal Color, Warm/Dry Procedures/Interventions Date of ETT Placement: Oct 16, 2019 Time of ETT Placement: 1125 Progress/Results/Core Measures Results/Orders Lab Results Laboratory Tests Test 11/30/19 18:45 11/30/19 21:04 Range/Units White Blood Count 7.4 4.3-11.0 10^3/uL Red Blood Count 4.44 4.35-5.85 10^6/uL Hemoglobin 13.1 11.5-16.0 G/DL Hematocrit 40 35-52 % Mean Corpuscular Volume 89 80-99 FL Mean Corpuscular Hemoglobin 30 25-34 PG Mean Corpuscular Hemoglobin Concent 33 32-36 G/DL Red Cell Distribution Width 14.8 H 10.0-14.5 % Platelet Count 290 130-400 10^3/uL Mean Platelet Volume 11.1 H 7.4-10.4 FL Neutrophils (%) (Auto) 40 L 42-75 % Lymphocytes (%) (Auto) 48 H 12-44 % Monocytes (%) (Auto) 9 0-12 % Eosinophils (%) (Auto) 3 0-10 % Basophils (%) (Auto) 1 0-10 % Neutrophils # (Auto) 2.9 1.8-7.8 X 10^3 Lymphocytes # (Auto) 3.5 1.0-4.0 X 10^3 Monocytes # (Auto) 0.7 0.0-1.0 X 10^3 Eosinophils # (Auto) 0.2 0.0-0.3 10^3/uL Basophils # (Auto) 0.0 0.0-0.1 10^3/uL Prothrombin Time 13.4 12.2-14.7 SEC INR Comment 1.0 0.8-1.4 Activated Partial Thromboplast Time 29 24-35 SEC D-Dimer 0.66 H 0.00-0.49 UG/ML Sodium Level 142 135-145 MMOL/L Potassium Level 3.8 3.6-5.0 MMOL/L Chloride Level 111 H 98-107 MMOL/L Carbon Dioxide Level 19 L 21-32 MMOL/L Anion Gap 12 5-14 MMOL/L Blood Urea Nitrogen 13 7-18 MG/DL Creatinine 0.77 0.60-1.30 MG/DL Estimat Glomerular Filtration Rate > 60 BUN/Creatinine Ratio 17 Glucose Level 86 70-105 MG/DL Calcium Level 10.5 H 8.5-10.1 MG/DL Corrected Calcium 10.4 H 8.5-10.1 MG/DL Magnesium Level 2.0 1.6-2.4 MG/DL Total Bilirubin 0.3 0.1-1.0 MG/DL Aspartate Amino Transf (AST/SGOT) 22 5-34 U/L Alanine Aminotransferase (ALT/SGPT) 31 0-55 U/L Alkaline Phosphatase 81 40-136 U/L Myoglobin 26.3 10.0-92.0 NG/ML Troponin I < 0.028 < 0.028 <0.028 NG/ML Total Protein 7.1 6.4-8.2 GM/DL Albumin 4.1 3.2-4.5 GM/DL My Orders Orders - SUZIE FREDERICK MD Cbc With Automated Diff (11/30/19 18:48) Magnesium (11/30/19 18:48) Chest 1 View, Ap/Pa Only (11/30/19 18:48) Ekg Tracing (11/30/19 18:48) Comprehensive Metabolic Panel (11/30/19 18:48) Myoglobin Serum (11/30/19 18:48) Protime With Inr (11/30/19 18:48) Partial Thromboplastin Time (11/30/19 18:48) O2 (11/30/19 18:48) Monitor-Rhythm Ecg Trace Only (11/30/19 18:48) Lipid Panel (12/01/19 06:00) Ed Iv/Invasive Line Start (11/30/19 18:48) Labetalol Injection (Normodyne Injection (11/30/19 19:00) Labetalol Injection (Normodyne Injection (11/30/19 18:44) Troponin I (11/30/19 18:45) Fibrin Degradation Products (11/30/19 18:45) Ns Iv 1000 Ml (Sodium Chloride 0.9%) (11/30/19 20:12) Ct Angio Chest W (11/30/19 20:12) Iohexol Injection (Omnipaque 350 Mg/Ml 1 (11/30/19 20:30) Received Contrast (Hold Metformin- Contr (11/30/19 20:30) Ns (Ivpb) (Sodium Chloride 0.9% Ivpb Bag (11/30/19 20:30) Metoprolol Succinate (Xl) Tab (Toprol Xl (11/30/19 20:30) Troponin I (11/30/19 20:36) Medications Given in ED Current Medications Medications Dose Ordered Sig/Jessy Route Start Time Stop Time Status Last Admin Dose Admin Iohexol 100 ml ONCE ONCE IV 11/30/19 20:30 11/30/19 20:31 DC 11/30/19 20:35 81 ML Labetalol HCl 20 mg ONCE ONCE IV 11/30/19 19:00 11/30/19 19:01 DC 11/30/19 18:54 20 MG Sodium Chloride 100 ml ONCE ONCE IV 11/30/19 20:30 11/30/19 20:31 DC 11/30/19 20:37 80 ML Sodium Chloride 1,000 ml @ 0 mls/hr Q0M ONCE IV 11/30/19 20:12 11/30/19 20:13 DC 11/30/19 21:05 1,000 MLS/HR Vital Signs/I&O 11/30/19 18:35 Temp 36.9 Pulse 90 Resp 18 B/P (MAP) 204/126 (152) Pulse Ox 100 O2 Delivery Room Air Blood Pressure Mean: 152 Progress Progress Note : Progress Note Seen and evaluated. IV, labs, EKG and chest x-ray ordered. Patient has taken full dose aspirin. Labetalol 20 mg IV for hypertension. We will check d-dimer given risk of pulmonary embolism secondary to the COVID-19 and prolonged hospitalization. Monitor patient. 2029: Overall patient doing well all and no significant findings other than d-dimer was slightly elevated. Given her recent hospitalizations and COVID-19 infection, we will get CT angiogram of the chest. We will repeat troponin at 2044. Normal saline 1 L bolus ordered. Toprol-XL 50 mg by mouth given. Monitor patient. 2201: Improved overall area and no significant findings and repeat troponin negative. We have initiated the Toprol- XL and will continue the outpatient. Blood pressure 150s systolic over 90s diastolic currently. She will follow with her primary care doctor in has asked for Dr. Groves. I Given her the information for Dr. Groves's office for follow-up. Patient does have significant family history of cardiac disease in both her father and her brother. She does need cardiology follow-up. I will send a copy of the chart to Dr. Groves and Dr. Gregorio. Discharged home with return precautions. Patient verbalize understanding instructions and agreement with plan. Initial ECG Impression Date: November 30, 2019 Initial ECG Impression Time: 18:37 Initial ECG Rate: 81 Initial ECG Rhythm: Normal Sinus Comment Sinus rhythm with normal axis. No signs of ST elevation IA. Similar in morphology to previous but the previous mild interventricular conduction delay is no longer noted. Interpreted by me. Diagnostic Imaging Diagonstic Imaging: Xray Plain Films/CT/US/NM/MRI: chest Comments [facility] [place] [place] NAME: YELENA ROLLINS [facility] REC#: [id number] PT STATUS: REG ER : 1960 PHYSICIAN: SUZIE FREDERICK MD ADMIT DATE: 11/30/19/ER Draft Date of Exam:11/30/19 CHEST 1 VIEW, AP/PA ONLY INDICATION: Hypertension and chest pain COMPARISON: 10/27/2019 FINDINGS: The lungs are clear. No pulmonary infiltrate or abnormal parenchymal density when compared to prior. No failure, effusion or pneumothorax. PICC line removed. IMPRESSION: Clear chest on follow-up. No acute finding or adverse development. Dictated on workstation # [id number] Dict: 11/30/192000 Trans: 11/30/192007 [facility] [id number] Interpreted by: PRADEEP HALL Electronically signed by: Diagonstic Imaging: CT Plain Films/CT/US/NM/MRI: chest Comments [facility] [place] [place] NAME: YELENA ORLLINS [facility] REC#: [id number] PT STATUS: REG ER : 1960 PHYSICIAN: SUZIE FREDERICK MD ADMIT DATE: 11/30/19/ER Draft Date of Exam:11/30/19 CT ANGIO CHEST W PROCEDURE: CT angiography of the chest with contrast. TECHNIQUE: Multiple contiguous axial images were obtained through the chest after uneventful bolus administration of intravenous contrast. 3D reconstructed CTA MIP acquisitions were also performed. Auto Exposure Controls were utilized during the CT exam to meet ALARA standards for radiation dose reduction. INDICATION: Hypertension and chest pain. FINDINGS: The pulmonary arterial branches are all widely patent. There was no filling defect. No findings of pulmonary arterial embolus. Thoracic aorta is patent, nonaneurysmal and nonacute. There is no pleural or pericardial effusion. The lungs reveal a somewhat mosaic perfusion pattern with heterogeneous areas of air trapping and some scattered lower lobe groundglass opacities. No ivette alveolar consolidation. No air bronchograms. No volume loss or significant atelectasis. No effusion or pneumothorax. The heart size and pulmonary vascularity unremarkable. The visualized upper abdomen reveals multiple gallstones without biliary dilatation and no acute appearing abnormality. IMPRESSION: 1. Negative for PE or acute aortic disease. 2. Some heterogeneous air trapping and scattered groundglass opacities may reflect small airway disease. No ivette consolidating pneumonia or pleural pathology. 3. Cholelithiasis. Dictated on workstation # [id number] Dict: 11/30/192057 Trans: 11/30/192107 [facility] [id number] Interpreted by: PRADEEP HALL Electronically signed by: Departure Impression Primary Impression: Hypertension Qualified Codes: I10 - Essential (primary) hypertension Disposition: HOME, SELF-CARE Condition: Improved Departure-Patient Inst. Decision time for Depature: 21:21 Referrals: JOVANI GROVES MD, LISA A MD (PCP/Family) Primary Care Physician Patient Instructions: Chest Pain (DC), High Blood Pressure (DC) Add. Discharge Instructions: All discharge instructions reviewed with patient and/or family. Voiced understanding. You need to call and make appointment with Dr. Groves for recheck and further evaluation. Call his office in the morning for appointment. Let them know that you were seen in the emergency department and are requesting appointment soon. Follow-up with your doctor for recheck and further evaluation the next few days. Return for worse pain, fever, vomiting, weakness, breathing problems or other concerns as needed. Take medications as directed. Scripts Metoprolol Tartrate (Metoprolol Tartrate) 50 Mg Tablet 50 MG PO BID, #60 TAB 0 Refills Prov: SUZIE FREDERICK MD 11/30/19 Copy Copies To 1: REGAN GREGORIO MD Copies To 2: JOVANI GROVES MD, TIMOTHY D MD November 30, 2019 18:57
[2019-11-30 18:59] LABS: BASOPHILS % (AUTO) 1 % (0-10); EOSINOPHILS # (AUTO) 0.2 10^3/uL (0.0-0.3); EOSINOPHILS % (AUTO) 3 % (0-10); HEMATOCRIT 40 % (35-52); HEMOGLOBIN 13.1 G/DL (11.5-16.0); LYMPHOCYTES # (AUTO) 3.5 X 10^3 (1.0-4.0); LYMPHOCYTES % (AUTO) 48 % (12-44); MEAN CORPUSCULAR HEMOGLOBIN 30 PG (25-34); MEAN CORPUSCULAR HGB CONC 33 G/DL (32-36); MEAN CORPUSCULAR VOLUME 89 FL (80-99); MEAN PLATELET VOLUME 11.1 FL (7.4-10.4); MONOCYTES # (AUTO) 0.7 X 10^3 (0.0-1.0); MONOCYTES % (AUTO) 9 % (0-12); NEUTROPHILS # (AUTO) 2.9 X 10^3 (1.8-7.8); NEUTROPHILS % (AUTO) 40 % (42-75); PLATELET COUNT 290 10^3/uL (130-400); RED CELL DISTRIBUTION WIDTH 14.8 % (10.0-14.5); WHITE BLOOD COUNT 7.4 10^3/uL (4.3-11.0)
[2019-11-30] MEDS ORDERED: LABETALOL HCL 20 MG/4 ML VIAL IV ONE (19:00)
[2019-11-30 19:04] LABS: ALBUMIN 4.1 GM/DL (3.2-4.5)
[2019-11-30 19:05] LABS: CALCIUM 10.5 MG/DL (8.5-10.1); CHLORIDE 111 MMOL/L (98-107); POTASSIUM 3.8 MMOL/L (3.6-5.0); SODIUM 142 MMOL/L (135-145)
[2019-11-30 19:07] LABS: GLUCOSE 86 MG/DL (70-105); TOTAL PROTEIN 7.1 GM/DL (6.4-8.2)
[2019-11-30 19:08] LABS: BILIRUBIN,TOTAL 0.3 MG/DL (0.1-1.0); CARBON DIOXIDE 19 MMOL/L (21-32)
[2019-11-30 19:10] LABS: ALKALINE PHOSPHATASE 81 U/L (40-136); CREATININE SERUM 0.77 MG/DL (0.60-1.30); GFR ESTIMATED > 60
[2019-11-30 19:11] LABS: BUN/CREATININE RATIO 17
[2019-11-30 19:13] LABS: ALANINE AMINOTRANSFERASE 31 U/L (0-55)
[2019-11-30 19:23] LABS: FIBRIN DEGRADATION PRODUCTS 0.66 UG/ML (0.00-0.49); PROTHROMBIN TIME PATIENT 13.4 SEC (12.2-14.7)
--- NOTE | 2019-11-30 20:09 | Diagnostic Imaging Report ---
INDICATION: Hypertension and chest pain COMPARISON: 10/27/2019 FINDINGS: The lungs are clear. No pulmonary infiltrate or abnormal parenchymal density when compared to prior. No failure, effusion or pneumothorax. PICC line removed. IMPRESSION: Clear chest on follow-up. No acute finding or adverse development. Dictated by: Dictated on workstation # [id number]
[2019-11-30] MEDS ORDERED: NS IV 1000 ML 1,000 ML IV ONE (20:12)
[2019-11-30] MEDS ORDERED: HOLD METFORMIN - RECEIVED CONTRAST 20 ML VIAL IV SCH (20:30)
[2019-11-30] MEDS ORDERED: NS 100 ML (IVPB) BAG IV ONE (20:30)
[2019-11-30] MEDS ORDERED: meTOproloL SUCCINATE 50 MG (TOPROL XL) TAB PO SCH (20:30)
[2019-11-30] MEDS ORDERED: IOHEXOL 350 MG/ML 100 ML (OMNIPAQUE 350) VIAL IV ONE (20:30)
--- NOTE | 2019-11-30 21:08 | Diagnostic Imaging Report ---
PROCEDURE: CT angiography of the chest with contrast. TECHNIQUE: Multiple contiguous axial images were obtained through the chest after uneventful bolus administration of intravenous contrast. 3D reconstructed CTA MIP acquisitions were also performed. Auto Exposure Controls were utilized during the CT exam to meet ALARA standards for radiation dose reduction. INDICATION: Hypertension and chest pain. FINDINGS: The pulmonary arterial branches are all widely patent. There was no filling defect. No findings of pulmonary arterial embolus. Thoracic aorta is patent, nonaneurysmal and nonacute. There is no pleural or pericardial effusion. The lungs reveal a somewhat mosaic perfusion pattern with heterogeneous areas of air trapping and some scattered lower lobe groundglass opacities. No ivette alveolar consolidation. No air bronchograms. No volume loss or significant atelectasis. No effusion or pneumothorax. The heart size and pulmonary vascularity unremarkable. The visualized upper abdomen reveals multiple gallstones without biliary dilatation and no acute appearing abnormality. IMPRESSION: 1. Negative for PE or acute aortic disease. 2. Some heterogeneous air trapping and scattered groundglass opacities may reflect small airway disease. No ivette consolidating pneumonia or pleural pathology. 3. Cholelithiasis. Dictated by: Dictated on workstation # [id number]
[2019-11-30] MEDS ORDERED: METO50TA15 PO (21:23)
[2019-11-30 22:17] VITALS: BP 150/85
== END 2019-11-30 22:17 | disposition home or self-care (01) ==
LOC: EDUNIT# 18:22 → ER 18:24
DX: I10 Essential (primary) hypertension (principal); Z88.1 Allergy status to other antibiotic agents; Z80.8 Family history of malignant neoplasm of other organs or systems; Z86.19 Personal history of other infectious and parasitic diseases; Z79.82 Long term (current) use of aspirin
CPT/HCPCS: 36415; 71045; 71275; 80053; 83735; 83874; 84484; 85025; 85379; 85610; 85730; 93005; 93041; 96361; 96374

== ENCOUNTER 2019-12-29 13:04 | Outpatient (CLI) | payer BC ==
[~2019-12-29 13:04] MED LIST changes: +METO50TA15 PO
== END 2019-12-29 13:16 | disposition home or self-care (01) ==
LOC: SLEEP 13:04
PROVIDERS: ATTEND Nurse Practitioner Family
DX: G47.10 Hypersomnia, unspecified (principal); J18.9 Pneumonia, unspecified organism; U07.1 COVID-19; J30.9 Allergic rhinitis, unspecified

== ENCOUNTER → 2019-12-30 | Outpatient (CLI) | payer BC ==
[~2019-12-30] MED LIST changes: +RT-ALBUTEROL SULF 2.5 MG/3 ML PRE-MIX VIAL INH ONE
--- NOTE | 2019-12-30 12:06 | Diagnostic Imaging Report ---
PROCEDURE: CT chest without contrast. TECHNIQUE: Multiple contiguous axial images were obtained through the chest without the use of intravenous contrast. Auto Exposure Controls were utilized during the CT exam to meet ALARA standards for radiation dose reduction. INDICATION: Pneumonia. Study compared 11/30/2019. FINDINGS: Heterogeneous air trapping and mosaic perfusion pattern with few scattered groundglass opacities is much improved in the interim. No alveolar consolidation, effusion or pneumothorax. No mass or lymphadenopathy. No thoracic aneurysm. No chest effusion. No acute soft tissue or osseous chest wall lesion. The visualized upper abdomen demonstrates gallstones. IMPRESSION: Improvements and heterogeneous air trapping and scattered nonspecific groundglass opacity, no ivette consolidation or adverse development. No thoracic effusion, cholelithiasis chronic. Dictated by: Dictated on workstation # [id number]
== END ==
LOC: RT 10:07
PROVIDERS: ATTEND Nurse Practitioner Family
DX: U07.1 COVID-19 (principal); J18.9 Pneumonia, unspecified organism; R05 Cough; K80.20 Calculus of gallbladder without cholecystitis without obstruction
CPT/HCPCS: 71250; 94060; 94726; 94729

== ENCOUNTER → 2020-02-08 | Outpatient (RCR) | payer BC, OTHER ==
[~2020-02-08] MED LIST changes: -RT-ALBUTEROL SULF 2.5 MG/3 ML PRE-MIX VIAL INH ONE
== END | disposition home or self-care (01) ==
PROVIDERS: ATTEND Family Medicine
DX: G62.81 Critical illness polyneuropathy (principal)

== ENCOUNTER 2020-02-15 13:04 | Outpatient (RCR) | payer BC, OTHER | END 2020-02-15 15:55 | disposition home or self-care (01) | PROVIDERS: ATTEND Family Medicine | DX: G62.81 Critical illness polyneuropathy (principal) ==

== ENCOUNTER 2020-02-23 21:17 | Observation (INO) | payer BC, OTHER ==
[~2020-02-23] VITALS: Ht 157.5 cm; Wt 104.3 kg
[2020-02-23] MEDS ORDERED: ASPIRIN 81 MG CHEW (CHILDREN'S ASA) PO ONE (21:30)
[2020-02-23 21:57] LABS: HEMATOCRIT 40 % (35-52); HEMOGLOBIN 13.3 G/DL (11.5-16.0); MEAN CORPUSCULAR HEMOGLOBIN 29 PG (25-34); MEAN CORPUSCULAR HGB CONC 29 G/DL (32-36); MEAN CORPUSCULAR VOLUME 87 FL (80-99); RED CELL DISTRIBUTION WIDTH 14.3 % (10.0-14.5); WHITE BLOOD COUNT 7.8 10^3/uL (4.3-11.0)
[2020-02-23 21:58] LABS: BASOPHILS % (AUTO) 0 % (0-10); EOSINOPHILS # (AUTO) 0.2 10^3/uL (0.0-0.3); EOSINOPHILS % (AUTO) 3 % (0-10); LYMPHOCYTES # (AUTO) 3.6 X 10^3 (1.0-4.0); LYMPHOCYTES % (AUTO) 46 % (12-44); MEAN PLATELET VOLUME 11.3 FL (7.4-10.4); MONOCYTES # (AUTO) 0.7 X 10^3 (0.0-1.0); MONOCYTES % (AUTO) 9 % (0-12); NEUTROPHILS # (AUTO) 3.2 X 10^3 (1.8-7.8); NEUTROPHILS % (AUTO) 41 % (42-75); PLATELET COUNT 261 10^3/uL (130-400)
[2020-02-23] MEDS ORDERED: NITROGLYCERIN 0.4 MG SL TABS BTL 25'S SL ONE (22:29)
[2020-02-23] MEDS ORDERED: NS IV 1000 ML 1,000 ML ONE (22:30)
[2020-02-24] MEDS ORDERED: ASPIRIN 81 MG CHEW (CHILDREN'S ASA) ONE (09:05)
[2020-02-24] MEDS ORDERED: CARVEDILOL 12.5 MG (COREG) TABLET ONE ×2 (09:05→21:13)
--- NOTE | 2020-02-24 20:49 | Diagnostic Imaging Report ---
Saima ROLLINS : 1960 INDICATION: Chest pain FINDINGS: Frontal view of the chest demonstrates the lungs to be clear. The heart, mediastinum and pulmonary vascularity and the visualized bony thorax are normal. IMPRESSION: Normal chest. Dictated by: Dictated on workstation # [id number]
[2020-02-25 08:00] VITALS: BP 133/85
[2020-02-25] MEDS ORDERED: hydrALAZINE (APESOLINE) 20 MG/ML VIAL IV PRN (08:15)
[2020-02-25 08:30] LABS: BUN/CREATININE RATIO 20; CARBON DIOXIDE 22 MMOL/L (21-32); CHLORIDE 112 MMOL/L (98-107); CREATININE SERUM 0.82 MG/DL (0.60-1.30); GFR ESTIMATED > 60; POTASSIUM 3.9 MMOL/L (3.6-5.0); SODIUM 142 MMOL/L (135-145)
[2020-02-25 08:31] LABS: ALANINE AMINOTRANSFERASE 18 U/L (0-55); ALKALINE PHOSPHATASE 71 U/L (40-136); BILIRUBIN,TOTAL 0.3 MG/DL (0.1-1.0); CALCIUM 10.2 MG/DL (8.5-10.1); GLUCOSE 114 MG/DL (70-105); MAGNESIUM 1.8 MG/DL (1.6-2.4); TOTAL PROTEIN 6.9 GM/DL (6.4-8.2)
--- NOTE | 2020-02-25 08:48 | Consultation - Hospitalist ---
HPI History of Present Illness: HPI/Chief Complaint Saima Truong is a 59-year-old female with past medical history of hypertension, morbid obesity, history of ARDS due to COVID-19, who presented with chest pain. She reports that she has been having intermittent chest pain since her diagnosis with COVID. She reports that she has been having worsening shortness of breath associated with this. She denies any radiation of the pain. She did have associated nausea. She denies any diaphoresis. She denies any history of heart disease. She denies any fevers or chills. She denies any cough. She denies any abdominal pain. She has no other complaints or concerns. Source: patient Exam Limitations: no limitations Date Seen 02/24/20 Attending Physician Lilly Winslow MD PCP Yamilex Judd MD Referring Physician Date of Admission Feb 23, 2020 at 22:30 Home Medications & Allergies Home Medications Reviewed patient Home Medication Reconciliation performed by pharmacy medication reconciliations analytical lab technician and/or nursing. Patients Allergies have been reviewed. Allergies Allergies Coded Allergies cefotaxime (Verified Allergy, Intermediate, HIVES, 10/14/15) Past Wtsdizk-Pmacjq-Mwnpmm Hx Past Med/Social Hx: Reviewed Nursing Past Med/Soc Hx Patient Social History Alcohol Use: Denies Use Recreational Drug Use: No Smoking Status: Never a Smoker 2nd Hand Smoke Exposure: No Recent Foreign Travel: No Contact w/other who traveled: No Recent Hopitalizations: Yes (COVID -19 positive) Recent Infectious Disease Expo: No Immunizations Up To Date Pediatric: Yes Seasonal Allergies Seasonal Allergies: Yes Past Medical History Surgeries: Section Respiratory: Pneumonia COVID-19 bradycardia while in ICU Sexually Transmitted Disease: No HIV/AIDS: No Female Reproductive Disorders: Denies History of Blood Disorders: No Adverse Reaction to Blood Kim: No Family History CVA 19 MOTHER Esophageal cancer 19 FATHER Review of Systems Constitutional: no symptoms reported EENTM: no symptoms reported Respiratory: short of breath Cardiovascular: chest pain Gastrointestinal: no symptoms reported Genitourinary: no symptoms reported Musculoskeletal: no symptoms reported Skin: no symptoms reported Psychiatric/Neurological: No Symptoms Reported Physical Exam Physical Exam Vital Signs Vital Signs - First Documented 02/23/20 02/25/20 21:28 08:00 Temp 36.7 Pulse 81 Resp 25 B/P (MAP) 157/88 (111) Pulse Ox 96 O2 Delivery Room Air Capillary Refill : Less Than 3 Seconds Height, Weight, BMI Height: 5'2.00" Weight: 240lbs. 0.0oz. 108.138728aq; 42.00 BMI Method: General Appearance: No Apparent Distress, Obese HEENT: PERRL/EOMI, Pharynx Normal Neck: Normal Inspection, Supple Respiratory: Lungs Clear, Normal Breath Sounds, No Respiratory Distress Cardiovascular: Regular Rate, Rhythm, No Edema, No Murmur Gastrointestinal: Normal Bowel Sounds, Non Tender, Soft Extremity: Normal Inspection, Non Tender, No Pedal Edema Neurologic/Psychiatric: Alert, Oriented x3, No Motor/Sensory Deficits, Normal Mood/Affect Skin: Normal Color, Warm/Dry Results Results/Procedures Labs Laboratory Tests 02/23/20 21:36 Patient resulted labs reviewed. Imaging: Reviewed Imaging Report Assessment/Plan Assessment and Plan Assess & Plan/Chief Complaint chest pain History of COVID Hypertension Started with chest pain Troponins normal Cardiology primary BP elevated Transition to Coreg Further workup of chest pain per cardiology DVT prophylaxis: Lovenox Diagnosis/Problems Diagnosis/Problems (1) Chest pain Status: Acute (2) History of severe acute respiratory syndrome coronavirus 2 (SARS-CoV-2) disease Status: Chronic (3) HTN (hypertension) Status: Acute Qualifiers: Hypertension type: essential hypertension Qualified Codes: I10 - Essential (primary) hypertension (4) Morbid obesity Status: Chronic Clinical Quality Measures AMI/AHF: ASA po Prior to arrival: LISANDRA Butler MD Feb 25, 2020 08:48
[2020-02-25] MEDS ORDERED: ASPIRIN 81 MG CHEW (CHILDREN'S ASA) PO SCH (09:00)
[2020-02-25] MEDS ORDERED: CARVEDILOL 12.5 MG (COREG) TABLET PO SCH (09:00)
[2020-02-25] MEDS ORDERED: ASPIRIN 81 MG CHEW (CHILDREN'S ASA) ONE (09:03)
[2020-02-25] MEDS ORDERED: CARVEDILOL 12.5 MG (COREG) TABLET ONE (09:03)
[2020-02-25 09:38] LABS: BASOPHILS % (AUTO) 1 % (0-10); EOSINOPHILS # (AUTO) 0.2 10^3/uL (0.0-0.3); EOSINOPHILS % (AUTO) 3 % (0-10); HEMATOCRIT 38 % (35-52); HEMOGLOBIN 12.4 G/DL (11.5-16.0); LYMPHOCYTES # (AUTO) 3.3 X 10^3 (1.0-4.0); LYMPHOCYTES % (AUTO) 44 % (12-44); MEAN CORPUSCULAR HEMOGLOBIN 29 PG (25-34); MEAN CORPUSCULAR HGB CONC 33 G/DL (32-36); MEAN CORPUSCULAR VOLUME 87 FL (80-99); MEAN PLATELET VOLUME 11.1 FL (7.4-10.4); MONOCYTES # (AUTO) 0.7 X 10^3 (0.0-1.0); MONOCYTES % (AUTO) 9 % (0-12); NEUTROPHILS # (AUTO) 3.3 X 10^3 (1.8-7.8); NEUTROPHILS % (AUTO) 43 % (42-75); PLATELET COUNT 237 10^3/uL (130-400); RED CELL DISTRIBUTION WIDTH 14.3 % (10.0-14.5); WHITE BLOOD COUNT 7.5 10^3/uL (4.3-11.0)
[2020-02-25 09:40] LABS: BUN/CREATININE RATIO 21; CARBON DIOXIDE 21 MMOL/L (21-32); CHLORIDE 113 MMOL/L (98-107); CREATININE SERUM 0.73 MG/DL (0.60-1.30); GFR ESTIMATED > 60; GLUCOSE 108 MG/DL (70-105); POTASSIUM 3.8 MMOL/L (3.6-5.0); SODIUM 141 MMOL/L (135-145)
[2020-02-25 09:41] LABS: ALANINE AMINOTRANSFERASE 15 U/L (0-55); ALKALINE PHOSPHATASE 63 U/L (40-136); BILIRUBIN,TOTAL 0.2 MG/DL (0.1-1.0); CALCIUM 9.2 MG/DL (8.5-10.1); MAGNESIUM 1.8 MG/DL (1.6-2.4); PHOSPHORUS 3.3 MG/DL (2.3-4.7); TOTAL PROTEIN 6.1 GM/DL (6.4-8.2)
[2020-02-25 09:42] LABS: ALBUMIN 3.6 GM/DL (3.2-4.5); CHOLESTEROL 221 MG/DL (< 200); HDL CHOLESTEROL 38 MG/DL (40-60); TRIGLYCERIDES 252 MG/DL (<150); VLDL CHOLESTEROL 50 MG/DL (5-40)
[2020-02-25 09:44] LABS: BASOPHILS % (AUTO) 0 % (0-10); EOSINOPHILS % (AUTO) 4 % (0-10); HEMATOCRIT 39 % (35-52); HEMOGLOBIN 12.8 G/DL (11.5-16.0); LYMPHOCYTES % (AUTO) 40 % (12-44); MEAN CORPUSCULAR HEMOGLOBIN 28 PG (25-34); MEAN CORPUSCULAR HGB CONC 33 G/DL (32-36); MEAN CORPUSCULAR VOLUME 86 FL (80-99); MEAN PLATELET VOLUME 11.3 FL (7.4-10.4); MONOCYTES % (AUTO) 10 % (0-12); NEUTROPHILS % (AUTO) 47 % (42-75); PLATELET COUNT 256 10^3/uL (130-400); RED CELL DISTRIBUTION WIDTH 14.4 % (10.0-14.5); WHITE BLOOD COUNT 5.8 10^3/uL (4.3-11.0)
[2020-02-25 09:45] LABS: EOSINOPHILS # (AUTO) 0.2 10^3/uL (0.0-0.3); LYMPHOCYTES # (AUTO) 2.3 X 10^3 (1.0-4.0); MONOCYTES # (AUTO) 0.6 X 10^3 (0.0-1.0); NEUTROPHILS # (AUTO) 2.7 X 10^3 (1.8-7.8)
[2020-02-25 09:57] LABS: BUN/CREATININE RATIO 18; CALCIUM 9.8 MG/DL (8.5-10.1); CARBON DIOXIDE 22 MMOL/L (21-32); CHLORIDE 113 MMOL/L (98-107); CREATININE SERUM 0.79 MG/DL (0.60-1.30); GFR ESTIMATED > 60; GLUCOSE 129 MG/DL (70-105); MAGNESIUM 1.8 MG/DL (1.6-2.4); POTASSIUM 3.9 MMOL/L (3.6-5.0); SODIUM 141 MMOL/L (135-145)
[2020-02-25] MEDS ORDERED: REGADENOSON 0.4 MG/5 ML SYR (LEXISCAN) IV ONE ×2 (11:00→14:44)
[2020-02-25] MEDS ORDERED: morphine INJ 10 MG/ML 1ML (SYR OR VIAL) IVP PRN (11:30)
[2020-02-25] MEDS ORDERED: ONDANSETRON 4 MG/2 ML (SDV) Z0FRAN IVP PRN (11:30)
[2020-02-25] MEDS ORDERED: ACETAMINOPHEN 325 MG TABLET PO PRN (11:30)
[2020-02-25] MEDS ORDERED: IBUPROFEN 600 MG (MOTRIN) TAB PO PRN (11:30)
[2020-02-25 11:45] VITALS: BP 130/88
[2020-02-25] MEDS ORDERED: CATHETER FLUSH 10 ML SYR IV PRN (14:15)
[2020-02-25 15:00] VITALS: BP 155/79
--- NOTE | 2020-02-25 15:22 | Progress Note - Hospitalist ---
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 She reports that she has been having intermittent chest pain since her diagnosis with COVID. She reports that she has been having worsening shortness of breath associated with this. She denies any radiation of the pain. She did have associated nausea. She denies any diaphoresis. She denies any history of heart disease. She denies any fevers or chills. She denies any cough. She denies any abdominal pain. She has no other complaints or concerns. Subjective/Events-last exam her chest pain is improved. She denies any shortness of breath. She has her chronic cough. She denies any fevers or chills. She has no other complaints or concerns. Objective Exam Vital Signs Vital Signs Date Time Temp Pulse Resp B/P (MAP) Pulse Ox O2 Delivery O2 Flow Rate FiO2 02/25/20 15:42 36.4 58 20 155/79 (104) 96 Room Air Capillary Refill : Less Than 3 Seconds General Appearance: No Apparent Distress, WD/WN Respiratory: Lungs Clear, Normal Breath Sounds, No Respiratory Distress Cardiovascular: Regular Rate, Rhythm, No Edema, No Murmur Gastrointestinal: Normal Bowel Sounds, Non Tender, Soft Extremity: Normal Inspection, Non Tender, Pedal Edema Neurologic/Psychiatric: Alert, Oriented x3, No Motor/Sensory Deficits, Normal Mood/Affect Skin: Normal Color, Warm/Dry Results/Procedures Lab Laboratory Tests 02/25/20 03:00 Patient resulted labs reviewed. Imaging: Reviewed Imaging Report Assessment/Plan Assessment and Plan Assess & Plan/Chief Complaint Chest pain History of COVID Hypertension Troponin remains normal Cardiology primary BP improved continue Coreg planning for stress test today DVT prophylaxis: Lovenox Diagnosis/Problems Diagnosis/Problems (1) Chest pain Status: Acute (2) History of severe acute respiratory syndrome coronavirus 2 (SARS-CoV-2) disease Status: Chronic (3) HTN (hypertension) Status: Acute Qualifiers: Hypertension type: essential hypertension Qualified Codes: I10 - Essential (primary) hypertension (4) Morbid obesity Status: Chronic Clinical Quality Measures AMI/AHF: ASA po Prior to arrival: LISANDRA Butler MD Feb 25, 2020 15:22
[2020-02-25 15:42] VITALS: BP 155/79
--- NOTE | 2020-02-25 18:24 | Cardiology Progress Note ---
Cardiology SOAP Progress Note Subjective: Chest pain resolved. Objective: I&O/Vital Signs Weight (Pounds): 240 Weight (Ounces): 0.0 Weight (Calculated Kilograms): [id number] Constitutional: AAO x 3 Respiratory: chest is bilaterally symmetric, lungs clear to auscultation Cardiovascular: regular rate-rhythm, S1 and S2; No diastolic murmur, No systolic murmur Gastrointestional: soft, audible bowel sounds Extremities: normal range of motion, non-tender, normal inspection, no lower extremity edema bilateral Neurologic/Psychiatric: no motor/sensory deficits, alert, normal mood/affect, oriented x 3 Skin: normal color Results/Procedures: Labs A/P: Assessment/Dx: Chest pain, COVID-19 recovery Plan: Normal echo and nuclear stress test. Thank you for your consultation. Please call me if you have any questions. Rudy Winslow MD, FACP, FACC, FSCAI, FHRS, CCDS Interventional Cardiology Cardiac Electrophysiology Vascular Medicine and Endovascular Interventions Clinical Quality Measures AMI/AHF: ASA po Prior to arrival: Lilly Lilly MD Feb 25, 2020 18:24
--- NOTE | 2020-02-25 18:29 | Cardiology Stress Test Report ---
Stress Test Report Type of NM Stress Test: Test Type: LEXISCAN 0.4MG/5ML Date of Procedure/Referring: Date of Procedure: Feb 25, 2020 PCP Lilly Winslow MD Admitting Physician Yamilex Judd MD Indications: Chest pain Baseline Heart Rate: 55 Baseline Blood Pressure: Blood Pressure Systolic: 155 Blood Pressure Diastolic: 79 Baseline EKG: Baseline EKG: sinus rhythm Summary & Conclusion: Summary: The patient was brought to the stress lab after informed consent was taken. St ress test was performed according to the Lexiscan protocol. 0.4 mg of IV Lexiscan was given. Low-grade exercise was performed. Baseline EKG showed sinus rhythm at 55 bpm and blood pressure 187/91 mmHg. Maximum heart rate of 80 bpm and blood pressure 162/70 mmHg. Patient did not have any chest pain, arrhythmias or ST segment changes during the stress test. 10.63 mCi of Myoview were given for rest imaging and 30.4 mCi of Myoview given for stress imaging. Transient ischemic dilatation score 0.99, EF 73 percent. Normal wall motion. Normal myocardial perfusion imaging during rest and stress. Conclusion: Pharmacological stress test was negative for ischemia. Normal LV function with no wall motion abnormalities. Normal myocardial perfusion imaging during rest and stress. Lilly WINSLOW MD Feb 25, 2020 18:29
[2020-02-25 19:00] LABS: INR 0.9 (0.8-1.4); PROTHROMBIN TIME PATIENT 12.7 SEC (12.2-14.7)
[2020-02-26] MEDS ORDERED: ASPIRIN E.C. 81 MG (ECOTRIN) TAB PO SCH (09:00)
== END 2020-02-25 18:05 | disposition home or self-care (01) ==
LOC: EDUNIT# 21:17 → ER 21:18 → ICU 22:30 → UNDOADMOB 02-25 07:05 → ICU 02-25 07:05
PROVIDERS: ADMIT Internal Medicine Interventional Cardiology; ATTEND Internal Medicine Interventional Cardiology
DX: R07.9 Chest pain, unspecified (principal); I10 Essential (primary) hypertension; E66.01 Morbid (severe) obesity due to excess calories; Z68.41 Body mass index [BMI] 40.0-44.9, adult; Z86.19 Personal history of other infectious and parasitic diseases; Z87.01 Personal history of pneumonia (recurrent)
CPT/HCPCS: 71045; 78452; 80048; 80053 ×2; 80061; 83735 ×3; 83874; 83880; 84100 ×2; 84484 ×2; 85025 ×3; 85379; 85610; 85730; 93005; 93017; 93041; 93306; 99284; A9502; G0378; 36415

== ENCOUNTER → 2020-08-12 | Outpatient (CLI) | payer BC, OTHER ==
[~2020-08-12] MED LIST changes: +CATHETER FLUSH 10 ML SYR IV PRN; +HOLD METFORMIN - RECEIVED CONTRAST 20 ML VIAL IV SCH; +IOHEXOL 350 MG/ML 100 ML (OMNIPAQUE 350) VIAL IV ONE; +NS 100 ML (IVPB) BAG IV ONE
[2020-08-12 07:47] LABS: CREATININE SERUM 0.82 MG/DL (0.60-1.30); GFR ESTIMATED > 60
[2020-08-12 07:48] LABS: BUN/CREATININE RATIO 17
--- NOTE | 2020-08-12 08:59 | Diagnostic Imaging Report ---
EXAMINATION: CT Chest with intravenous contrast. TECHNIQUE: Multiple contiguous axial images were obtained through the chest after the uneventful administration of intravenous contrast. All CT scans use one or more of the following dose optimizing techniques: automated exposure control, MA and/or KvP adjustment based on a patient size and exam type, or iterative reconstruction. HISTORY: Prior COVID 19 and pneumonia. 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 There are a few patchy areas of atelectasis. No pleural effusion. No pneumothorax. No suspicious nodules. There is no axillary or supraclavicular lymphadenopathy. There is no mediastinal lymphadenopathy. Heart size is normal. There are no coronary artery calcifications. No pericardial effusion. Aorta is normal in caliber. Limited views of the upper abdomen show hepatic steatosis. There are no suspicious osseus lesions. IMPRESSION: 1. 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 Dictated by: Dictated on workstation # [id number]
== END ==
LOC: RAD 08:15
PROVIDERS: ATTEND Nurse Practitioner Family
DX: J18.9 Pneumonia, unspecified organism (principal); Z86.16 Personal history of COVID-19
CPT/HCPCS: 36415; 71260; 82565; 84520

== ENCOUNTER → 2021-01-02 | Outpatient (CLI) | payer BC ==
[~2021-01-02] MED LIST changes: -CATHETER FLUSH 10 ML SYR IV PRN; -CIPR500T4 PO; +CIPR500T5 PO; -HOLD METFORMIN - RECEIVED CONTRAST 20 ML VIAL IV SCH; -IOHEXOL 350 MG/ML 100 ML (OMNIPAQUE 350) VIAL IV ONE; -NS 100 ML (IVPB) BAG IV ONE
[2021-01-02 15:34] LABS: BASOPHILS % (AUTO) 1 % (0-10); EOSINOPHILS # (AUTO) 0.2 10^3/uL (0.0-0.3); EOSINOPHILS % (AUTO) 3 % (0-10); HEMATOCRIT 42 % (35-52); HEMOGLOBIN 13.3 g/dL (11.5-16.0); LYMPHOCYTES # (AUTO) 2.7 10^3/uL (1.0-4.0); LYMPHOCYTES % (AUTO) 49 % (12-44); MEAN CORPUSCULAR HEMOGLOBIN 29 pg (25-34); MEAN CORPUSCULAR HGB CONC 32 g/dL (32-36); MEAN CORPUSCULAR VOLUME 91 fL (80-99); MEAN PLATELET VOLUME 10.8 fL (9.0-12.2); MONOCYTES # (AUTO) 0.4 10^3/uL (0.0-1.0); MONOCYTES % (AUTO) 7 % (0-12); NEUTROPHILS # (AUTO) 2.2 10^3/uL (1.8-7.8); NEUTROPHILS % (AUTO) 40 % (42-75); PLATELET COUNT 280 10^3/uL (130-400); WHITE BLOOD COUNT 5.6 10^3/uL (4.3-11.0)
[2021-01-02 16:03] LABS: BAND NEUTROPHILS 2 %; BASOPHILS % (MANUAL) 0 %; EOSINOPHILS % (MANUAL) 2 %; LYMPHOCYTES % (MANUAL) 38 %; MONOCYTES % (MANUAL) 5 %; NEUTROPHILS % (MANUAL) 37 %; RBC MORPH NORMAL; REACTIVE LYMPHOCYTES 16 %
--- NOTE | 2021-01-02 20:26 | Diagnostic Imaging Report ---
EXAMINATION: CHEST (PA AND LATERAL) CLINICAL INDICATION: 60-year-old female, shortness of breath. History of pneumonia. COMPARISON: July 19, 2017. FINDINGS: Heart size and mediastinal contours are unchanged and unremarkable. There is no identified pneumothorax. There is no pleural effusion. There is no identified focal airspace consolidation. There are mild degenerative changes of the spine. IMPRESSION: No identified acute cardiopulmonary abnormality. Dictated by: Dictated on workstation # [id number]
== END ==
LOC: RAD 15:01
PROVIDERS: ATTEND Nurse Practitioner Family
DX: J18.9 Pneumonia, unspecified organism (principal)
CPT/HCPCS: 36415; 71046; 85007; 85027; 86738

== ENCOUNTER 2021-01-19 11:07 | Emergency (ER) | payer BC ==
[~2021-01-19] VITALS: Ht 157 cm; Wt 116.5 kg
[2021-01-19] MEDS ORDERED: ASPIRIN 81 MG CHEW (CHILDREN'S ASA) PO ONE (11:45)
[2021-01-19 11:53] LABS: BASOPHILS # (AUTO) 0.1 10^3/uL (0.0-0.1); BASOPHILS % (AUTO) 1 % (0-10); EOSINOPHILS # (AUTO) 0.2 10^3/uL (0.0-0.3); EOSINOPHILS % (AUTO) 3 % (0-10); HEMATOCRIT 40 % (35-52); LYMPHOCYTES # (AUTO) 3.3 10^3/uL (1.0-4.0); LYMPHOCYTES % (AUTO) 46 % (12-44); MEAN CORPUSCULAR HEMOGLOBIN 29 pg (25-34); MEAN CORPUSCULAR HGB CONC 32 g/dL (32-36); MEAN CORPUSCULAR VOLUME 91 fL (80-99); MEAN PLATELET VOLUME 11.5 fL (9.0-12.2); MONOCYTES # (AUTO) 0.6 10^3/uL (0.0-1.0); MONOCYTES % (AUTO) 8 % (0-12); NEUTROPHILS % (AUTO) 42 % (42-75); PLATELET COUNT 249 10^3/uL (130-400); WHITE BLOOD COUNT 7.1 10^3/uL (4.3-11.0)
--- NOTE | 2021-01-19 11:55 | ED Cardiac General ---
History of Present Illness General Chief Complaint: Chest Pain Stated Complaint: CP Nursing Triage Note: PT PRESENTS TO ED VIA POV FROM WORK WITH COMPLAINTS OF PALPITATIONS AND R UPPER BACK PAIN SINCE YESTERDAY. PT REPORTS SHE HAD COVID LAST YEAR AND HAS HAD INTERMITTENT COUGH AND SOA SINCE. PT REPORTS SHE WAS TREATED FOR MICROPNEUOMIA 3 WEEKS AGO. Source: patient Exam Limitations: no limitations History of Present Illness Date Seen by Provider: Jan 19, 2021 Time Seen by Provider: 11:40 Initial Comments To ER by private vehicle from work at [employer] with reports of palpitations and right upper back pain since yesterday. She was diagnosed with mycoplasma pneumonia 3 weeks ago and given Levaquin which she has completed but does not feel much improvement. She had Covid with a prolonged admission back in November 2019. She has subsequently had both Covid vaccines. She is tested weekly at her job. She denies fevers or diarrhea. She reports palpitations and shortness of breath since Covid. The shortness of breath since last year is gradually improving. Palpitations are actually worsening and were accompanied by hypertension at 170 systolic this morning which was her reason for seeking care today. She is also not sure that the mycoplasma pneumonia is gone. Timing/Duration: changing over time Severity: moderate NTG SL CRUISE COUNSELOR: No ASA po CRUISE COUNSELOR: No Associated Systoms: Chest Pain; No Cough, No Fever/Chills Allergies and Home Medications Allergies Coded Allergies: cefotaxime (Verified Allergy, Intermediate, HIVES, 10/14/15) Home Medications Lactobacillus Acidophilus/Pect 1 Each Capsule, 2 EACH PO TIDWM Prescribed by: JASE MAGALLANES on 11/05/192124 Metoprolol Tartrate 50 Mg Tablet, 50 MG PO BID Prescribed by: SUZIE FREDERICK on 11/30/192122 Patient Home Medication List Home Medication List Reviewed: Yes Review of Systems Review of Systems Constitutional: see HPI, chills; No fever EENTM: No Symptoms Reported Respiratory: See HPI; Denies Cough; Shortness of Air, SOA With Exertion Cardiovascular: See HPI, Chest Pain; Denies Edema, Denies Irregular Heart Rate, Denies Lightheadedness; Palpitations; Denies Syncope Gastrointestinal: No Symptoms Reported Genitourinary: No Symptoms Reported Musculoskeletal: no symptoms reported Skin: no symptoms reported Psychiatric/Neurological: No Symptoms Reported Endocrine: No Symptoms Reported Hematologic/Lymphatic: No Symptoms Reported Past Oogmidt-Nnaxaa-Ndotfo Hx Patient Social History Smoking Status: Never a Smoker Substance use?: No Alcohol Use?: No Pt feels they are or have been: No Immunizations Up To Date PED Vaccines UTD: Yes Second COVID19 Vaccination Kaz: 12/22/20 COVID19 Vaccine Fashion Marketer: SARAN Seasonal Allergies Seasonal Allergies: Yes Past Medical History Surgery/Hospitalization HX: C-SEC Surgeries: Yes (REMOVED SCAR TISSUE) Section Respiratory: Yes (RECENT INTUBATION.) Cardiac: No Neurological: No Female Reproductive Disorders: Denies Sexually Transmitted Disease: No HIV/AIDS: No Genitourinary: No Gastrointestinal: No Musculoskeletal: No Endocrine: No HEENT: No Cancer: No Psychosocial: No Integumentary: No Blood Disorders: No Adverse Reaction/Blood Tranf: No Family Medical History CVA 19 MOTHER Esophageal cancer 19 FATHER Physical Exam Vital Signs Vital Signs - First Documented 01/19/21 11:35 Temp 35.5 Pulse 52 Resp 18 B/P (MAP) 162/96 (118) Pulse Ox 100 O2 Delivery Room Air Capillary Refill : Less Than 3 Seconds Height, Weight, BMI Height: 5'2.00" Weight: 240lbs. 0.0oz. 108.061840db; 47.00 BMI Method: General Appearance: No Apparent Distress, WD/WN, Other (Duration 100% room air. Heart rate 54.) Neck: Full Range of Motion, Normal Inspection Respiratory: No Accessory Muscle Use, No Respiratory Distress Cardiovascular: Regular Rate, Rhythm, Normal Peripheral Pulses Gastrointestinal: Normal Bowel Sounds, Non Tender, Soft Extremity: Normal Capillary Refill Neurologic/Psychiatric: Alert, Oriented x3 Skin: Normal Color, Warm/Dry Procedures/Interventions Date of ETT Placement: Oct 16, 2019 Time of ETT Placement: 1125 Progress/Results/Core Measures Results/Orders Lab Results Laboratory Tests Test 01/19/21 11:29 01/19/21 12:28 Range/Units White Blood Count 7.1 4.3-11.0 10^3/uL Red Blood Count 4.42 3.80-5.11 10^6/uL Hemoglobin 13.0 11.5-16.0 g/dL Hematocrit 40 35-52 % Mean Corpuscular Volume 91 80-99 fL Mean Corpuscular Hemoglobin 29 25-34 pg Mean Corpuscular Hemoglobin Concent 32 32-36 g/dL Red Cell Distribution Width 14.2 10.0-14.5 % Platelet Count 249 130-400 10^3/uL Mean Platelet Volume 11.5 9.0-12.2 fL Immature Granulocyte % (Auto) 0 % Neutrophils (%) (Auto) 42 42-75 % Lymphocytes (%) (Auto) 46 H 12-44 % Monocytes (%) (Auto) 8 0-12 % Eosinophils (%) (Auto) 3 0-10 % Basophils (%) (Auto) 1 0-10 % Neutrophils # (Auto) 3.0 1.8-7.8 10^3/uL Lymphocytes # (Auto) 3.3 1.0-4.0 10^3/uL Monocytes # (Auto) 0.6 0.0-1.0 10^3/uL Eosinophils # (Auto) 0.2 0.0-0.3 10^3/uL Basophils # (Auto) 0.1 0.0-0.1 10^3/uL Immature Granulocyte # (Auto) 0.0 0.0-0.1 10^3/uL Prothrombin Time 13.3 12.2-14.7 SEC INR Comment 1.0 0.8-1.4 Activated Partial Thromboplast Time 28 24-35 SEC D-Dimer 0.66 H 0.00-0.49 UG/ML Sodium Level 143 135-145 MMOL/L Potassium Level 4.2 3.6-5.0 MMOL/L Chloride Level 111 H 98-107 MMOL/L Carbon Dioxide Level 22 21-32 MMOL/L Anion Gap 10 5-14 MMOL/L Blood Urea Nitrogen 12 7-18 MG/DL Creatinine 0.83 0.60-1.30 MG/DL Estimat Glomerular Filtration Rate > 60 BUN/Creatinine Ratio 14 Glucose Level 99 70-105 MG/DL Calcium Level 9.9 8.5-10.1 MG/DL Corrected Calcium 10.0 8.5-10.1 MG/DL Magnesium Level 2.1 1.6-2.4 MG/DL Total Bilirubin 0.5 0.1-1.0 MG/DL Aspartate Amino Transf (AST/SGOT) 17 5-34 U/L Alanine Aminotransferase (ALT/SGPT) 24 0-55 U/L Alkaline Phosphatase 77 40-136 U/L Myoglobin 44.2 10.0-92.0 NG/ML Troponin I < 0.028 <0.028 NG/ML B-Type Natriuretic Peptide 30.3 <100.0 PG/ML Total Protein 6.7 6.4-8.2 GM/DL Albumin 3.9 3.2-4.5 GM/DL Procalcitonin 0.02 <0.10 NG/ML Urine Color YELLOW Urine Clarity CLEAR Urine pH 6.0 5-9 Urine Specific [place] 1.015 L 1.016-1.022 Urine Protein NEGATIVE NEGATIVE Urine Glucose (UA) NEGATIVE NEGATIVE Urine Ketones NEGATIVE NEGATIVE Urine Nitrite NEGATIVE NEGATIVE Urine Bilirubin NEGATIVE NEGATIVE Urine Urobilinogen 0.2 < = 1.0 MG/DL Urine Leukocyte Esterase 1+ H NEGATIVE Urine RBC (Auto) NEGATIVE NEGATIVE Urine RBC NONE /HPF Urine WBC 5-10 H /HPF Urine Squamous Epithelial Cells 2-5 /HPF Urine Crystals NONE /LPF Urine Bacteria TRACE /HPF Urine Casts NONE /LPF Urine Mucus NEGATIVE /LPF Urine Culture Indicated YES My Orders Orders - YUNI MELO APRN Cbc With Automated Diff (01/19/21 11:44) Magnesium (01/19/21 11:44) Chest 1 View, Ap/Pa Only (01/19/21 11:44) Ekg Tracing (01/19/21 11:44) Comprehensive Metabolic Panel (01/19/21 11:44) Myoglobin Serum (01/19/21 11:44) Protime With Inr (01/19/21 11:44) Partial Thromboplastin Time (01/19/21 11:44) O2 (01/19/21 11:44) Monitor-Rhythm Ecg Trace Only (01/19/21 11:44) Lipid Panel (01/20/21 06:00) Ed Iv/Invasive Line Start (01/19/21 11:44) BNP (01/19/21 11:44) Troponin I (01/19/21 11:44) Aspirin Chewable Tablet (Baby Aspirin Ch (01/19/21 11:45) Procalcitonin (Pct) (01/19/21 11:51) Fibrin Degradation Products (01/19/21 11:29) Ua Culture If Indicated (01/19/21 12:25) Ct Angio Chest W (01/19/21 12:35) Iohexol Injection (Omnipaque 350 Mg/Ml 1 (01/19/21 12:45) Received Contrast (Hold Metformin- Contr (01/19/21 12:45) Ns (Ivpb) (Sodium Chloride 0.9% Ivpb Bag (01/19/21 12:45) Urine Culture (01/19/21 12:28) Medications Given in ED Current Medications Medications Dose Ordered Sig/Jessy Route Start Time Stop Time Status Last Admin Dose Admin Aspirin 324 mg ONCE ONCE PO 01/19/21 11:45 01/19/21 11:46 DC 01/19/21 12:13 324 MG Iohexol 100 ml ONCE ONCE IV 01/19/21 12:45 01/19/21 12:46 DC 01/19/21 13:47 85 ML Sodium Chloride 100 ml ONCE ONCE IV 01/19/21 12:45 01/19/21 12:46 DC 01/19/21 13:47 100 ML Vital Signs/I&O 01/19/21 01/19/21 11:35 11:35 Temp 35.5 Pulse 52 Resp 18 B/P (MAP) 162/96 (118) Pulse Ox 100 O2 Delivery Room Air Blood Pressure Mean: 118 Diagnostic Imaging Diagonstic Imaging: Xray Comments NAME: YELENA ROLLINS Nephros REC#: [id number] PT STATUS: REG ER : 1960 PHYSICIAN: YUNI MELO APRN ADMIT DATE: 01/19/21/ER Draft Date of Exam:01/19/21 CHEST 1 VIEW, AP/PA ONLY Indication: Cough, shortness of breath, palpitations. Comparison: 02/23/2020 Findings: Single view of the chest demonstrates stable cardiac enlargement. Lungs are clear. There is no pneumothorax. Osseous structures are age appropriate. Impression: Stable cardiac enlargement without pulmonary edema or acute infiltrate. Dictated on workstation # [id number] Dict: 01/19/21 1226 Trans: 01/19/21 1228 [facility] [id number] Interpreted by: KRYSTAL MARVIN Electronically signed by: Departure Communication (Admissions) Family Conversation NAME: YELENA ROLLINS Nephros REC#: [id number] PT STATUS: REG ER : 1960 PHYSICIAN: YUNI MELO APRN ADMIT DATE: 01/19/21/ER Draft Date of Exam:01/19/21 CT ANGIO CHEST W PROCEDURE: CT angiography of the chest with contrast. TECHNIQUE: Multiple contiguous axial images were obtained through the chest after uneventful bolus administration of intravenous contrast. 3D reconstructed CTA MIP acquisitions were also performed. Auto Exposure Controls were utilized during the CT exam to meet ALARA standards for radiation dose reduction. INDICATION: Elevated d-dimer and chest pain. Comparison is made with prior CT angiogram of the chest from 11/30/2019. Evaluation of the pulmonary arterial system is without evidence of thromboembolism. No filling defects are seen within central, lobar or segmental branches. Aorta appears to be normal in caliber. There is no pericardial or pleural fluid. No pulmonary nodules, masses or infiltrates are detected. Upper abdomen does show multiple stones within the gallbladder. IMPRESSION: 1. No evidence of pulmonary embolism. 2. Cholelithiasis. Dictated on workstation # [id number] Dict: 01/19/21 1348 Trans: 01/19/21 1354 [facility] [id number] Interpreted by: ALEXEI PATTEN MD Electronically signed by: Her EKG done on 1119 shows sinus bradycardia rate of 47 sinus in nature no ectopy normal intervals no ST segment changes Impression Primary Impression: Palpitations Additional Impression: Chest pain Disposition: 01 HOME, SELF-CARE Condition: Stable Departure-Patient Inst. Decision time for Depature: 13:11 Referrals: REGAN GREGORIO MD (PCP/Family) Primary Care Physician Patient Instructions: Chest Pain, Adult ED Add. Discharge Instructions: . Follow-up with your regular doctor 2. Return to ER for any concerns. Know that if you ever get nausea after eating and right upper abdominal pain that you do have stones in your gallbladder. You may live the rest of your life without symptoms from these or you may develop symptoms tomorrow and need your gallbladder removed. In regards to your back pain this is most likely related to some residual pleurisy. All discharge instructions reviewed with patient and/or family. Voiced understanding. YUNI MELO APRN Jan 19, 2021 11:54
[2021-01-19 12:00] LABS: PROTHROMBIN TIME PATIENT 13.3 SEC (12.2-14.7)
[2021-01-19 12:06] LABS: FIBRIN DEGRADATION PRODUCTS 0.66 UG/ML (0.00-0.49)
[2021-01-19 12:07] LABS: ALBUMIN 3.9 GM/DL (3.2-4.5); CHLORIDE 111 MMOL/L (98-107); POTASSIUM 4.2 MMOL/L (3.6-5.0); SODIUM 143 MMOL/L (135-145)
[2021-01-19 12:08] LABS: CALCIUM 9.9 MG/DL (8.5-10.1)
[2021-01-19 12:09] LABS: GLUCOSE 99 MG/DL (70-105)
[2021-01-19 12:10] LABS: TOTAL PROTEIN 6.7 GM/DL (6.4-8.2)
[2021-01-19 12:11] LABS: BILIRUBIN,TOTAL 0.5 MG/DL (0.1-1.0); CARBON DIOXIDE 22 MMOL/L (21-32)
[2021-01-19 12:13] LABS: ALKALINE PHOSPHATASE 77 U/L (40-136); CREATININE SERUM 0.83 MG/DL (0.60-1.30); GFR ESTIMATED > 60
[2021-01-19 12:14] LABS: BUN/CREATININE RATIO 14
[2021-01-19 12:16] LABS: ALANINE AMINOTRANSFERASE 24 U/L (0-55); MAGNESIUM 2.1 MG/DL (1.6-2.4)
--- NOTE | 2021-01-19 12:28 | Diagnostic Imaging Report ---
Indication: Cough, shortness of breath, palpitations. Comparison: 02/23/2020 Findings: Single view of the chest demonstrates stable cardiac enlargement. Lungs are clear. There is no pneumothorax. Osseous structures are age appropriate. Impression: Stable cardiac enlargement without pulmonary edema or acute infiltrate. Dictated by: Dictated on workstation # [id number]
[2021-01-19 12:35] LABS: BILIRUBIN,URINE NEGATIVE (NEGATIVE); CLARITY,URINE CLEAR; COLOR,URINE YELLOW; GLUCOSE, URINE (UA) NEGATIVE (NEGATIVE); KETONES,URINE NEGATIVE (NEGATIVE); LEUKOCYTE ESTERASE ,URINE 1+ (NEGATIVE); NITRITE,URINE NEGATIVE (NEGATIVE); PROTEIN,URINE NEGATIVE (NEGATIVE)
[2021-01-19] MEDS ORDERED: IOHEXOL 350 MG/ML 100 ML (OMNIPAQUE 350) VIAL IV ONE (12:45)
[2021-01-19] MEDS ORDERED: NS 100 ML (IVPB) BAG IV ONE (12:45)
[2021-01-19] MEDS ORDERED: HOLD METFORMIN - RECEIVED CONTRAST 20 ML VIAL IV SCH (12:45)
[2021-01-19 12:51] LABS: BACTERIA,URINE TRACE /HPF
--- NOTE | 2021-01-19 13:55 | Diagnostic Imaging Report ---
PROCEDURE: CT angiography of the chest with contrast. TECHNIQUE: Multiple contiguous axial images were obtained through the chest after uneventful bolus administration of intravenous contrast. 3D reconstructed CTA MIP acquisitions were also performed. Auto Exposure Controls were utilized during the CT exam to meet ALARA standards for radiation dose reduction. INDICATION: Elevated d-dimer and chest pain. Comparison is made with prior CT angiogram of the chest from 11/30/2019. Evaluation of the pulmonary arterial system is without evidence of thromboembolism. No filling defects are seen within central, lobar or segmental branches. Aorta appears to be normal in caliber. There is no pericardial or pleural fluid. No pulmonary nodules, masses or infiltrates are detected. Upper abdomen does show multiple stones within the gallbladder. IMPRESSION: 1. No evidence of pulmonary embolism. 2. Cholelithiasis. Dictated by: Dictated on workstation # [id number]
[2021-01-19] MEDS ORDERED: KETOROLAC 30 MG/ML VIAL IVP ONE (14:45)
[2021-01-19 15:06] VITALS: BP 127/68
== END 2021-01-19 15:06 | disposition home or self-care (01) ==
LOC: EDUNIT# 11:07 → ER 11:10
DX: R07.9 Chest pain, unspecified (principal); R00.2 Palpitations; Z86.16 Personal history of COVID-19; Z87.01 Personal history of pneumonia (recurrent)
CPT/HCPCS: 36415; 71045; 71275; 80053; 81000; 83735; 83874; 83880; 84145; 84484; 85025; 85379; 85610; 85730; 87088; 93005; 93041

== ENCOUNTER 2021-04-06 14:16 | Inpatient (IN) | payer BC ==
[~2021-04-06] VITALS: Ht 157.4 cm; Wt 110.0 kg
--- NOTE | 2021-04-06 14:55 | ED Chest Pain ---
General Chief Complaint: Respiratory Problems Stated Complaint: SOB,CP Source: patient Exam Limitations: no limitations History of Present Illness Date Seen by Provider: Apr 06, 2021 Time Seen by Provider: 14:38 Initial Comments Here with report of central chest pain and shortness of breath that has been worsening over the last few days. Does have history of prolonged Covid illness in a year and sequela since. States that she is used her inhaler a few times today and that helps briefly but then no longer works. States that usually when she feels like this she has pneumonia. Since Covid illness she has developed hypertension and is currently under therapy for that. Denies vomiting but has had intermittent nausea. States the anterior chest pain is a tightness and pain and does seem to radiate to the right back. Worse with activity and better with rest. This goes for the shortness of breath as well. 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 BANK BOOKING CLERK: Yes NTG SL BLOOD BANK BOOKING CLERK: No Associated Symptoms: back pain, nausea/vomiting, shortness of breath Allergies and Home Medications Allergies Coded Allergies: cefotaxime (Verified Allergy, Intermediate, HIVES, 10/14/15) Patient Home Medication List Home Medication List Reviewed: Yes Lactobacillus Acidophilus/Pect (Acidophilus-Pectin Capsule) 1 Each Capsule, 2 EACH PO TIDWM Prescribed by: JASE MAGALLANES on 11/05/192124 Metoprolol Tartrate (Metoprolol Tartrate) 50 Mg Tablet, 50 MG PO BID Prescribed by: SUZIE FREDERICK on 11/30/192122 Review of Systems Review of Systems Constitutional: see HPI; No chills, No fever EENTM: No Nose Congestion, No Throat Pain Respiratory: Denies Cough; Shortness of Air Cardiovascular: Chest Pain; Denies Edema Gastrointestinal: Nausea; Denies Vomiting Genitourinary: No Symptoms Reported Musculoskeletal: see HPI; No joint pain, No neck pain Skin: no symptoms reported All Other Systems Reviewed Negative Unless Noted: Yes Past Yhmqpuv-Harmai-Nrzcpw Hx Patient Social History Tobacco Use?: No Substance use?: No Alcohol Use?: No Immunizations Up To Date PED Vaccines UTD: Yes Seasonal Allergies Seasonal Allergies: Yes Past Medical History Surgery/Hospitalization HX: C-SEC Surgeries: Yes (REMOVED SCAR TISSUE) Section Respiratory: Yes (RECENT INTUBATION.) Cardiac: No Neurological: No Female Reproductive Disorders: Denies Sexually Transmitted Disease: No HIV/AIDS: No Genitourinary: No Gastrointestinal: No Musculoskeletal: No Endocrine: No HEENT: No Cancer: No Psychosocial: No Integumentary: No Blood Disorders: No Adverse Reaction/Blood Tranf: No Family Medical History Reviewed Nursing Family Hx CVA 19 MOTHER Esophageal cancer 19 FATHER Physical Exam Vital Signs Vital Signs - First Documented 04/06/21 14:36 Temp 36.6 Pulse 93 Resp 24 B/P (MAP) 160/78 (105) Pulse Ox 100 O2 Delivery Room Air Capillary Refill : Height, Weight, BMI Height: 5'2.00" Weight: 240lbs. 0.0oz. 108.417395rs; 47.00 BMI Method: General Appearance: No Apparent Distress, WD/WN HEENT: PERRL/EOMI, Pharynx Normal Neck: Non Tender, Supple Respiratory: Lungs Clear, Normal Breath Sounds Cardiovascular: Regular Rate, Rhythm, No Murmur Gastrointestinal: Non Tender, Soft Extremity: Normal Range of Motion, Non Tender Neurologic/Psychiatric: Alert, Oriented x3 Skin: Normal Color, Warm/Dry Procedures/Interventions Date of ETT Placement: Oct 16, 2019 Time of ETT Placement: 1125 Progress/Results/Core Measures Results/Orders Lab Results Laboratory Tests Test 04/06/21 15:03 Range/Units White Blood Count 7.7 4.3-11.0 10^3/uL Red Blood Count 4.33 3.80-5.11 10^6/uL Hemoglobin 12.7 11.5-16.0 g/dL Hematocrit 38 35-52 % Mean Corpuscular Volume 89 80-99 fL Mean Corpuscular Hemoglobin 29 25-34 pg Mean Corpuscular Hemoglobin Concent 33 32-36 g/dL Red Cell Distribution Width 14.5 10.0-14.5 % Platelet Count 284 130-400 10^3/uL Mean Platelet Volume 10.9 9.0-12.2 fL Immature Granulocyte % (Auto) 0 % Neutrophils (%) (Auto) 48 42-75 % Lymphocytes (%) (Auto) 39 12-44 % Monocytes (%) (Auto) 9 0-12 % Eosinophils (%) (Auto) 3 0-10 % Basophils (%) (Auto) 1 0-10 % Neutrophils # (Auto) 3.7 1.8-7.8 X 10^3 Lymphocytes # (Auto) 3.0 1.0-4.0 X 10^3 Monocytes # (Auto) 0.7 0.0-1.0 X 10^3 Eosinophils # (Auto) 0.2 0.0-0.3 10^3/uL Basophils # (Auto) 0.1 0.0-0.1 10^3/uL Immature Granulocyte # (Auto) 0.0 0.0-0.1 10^3/uL Prothrombin Time 13.0 12.2-14.7 SEC INR Comment 0.9 0.8-1.4 Activated Partial Thromboplast Time 27 24-35 SEC D-Dimer 0.43 0.00-0.49 UG/ML Sodium Level 140 135-145 MMOL/L Potassium Level 3.8 3.6-5.0 MMOL/L Chloride Level 109 H 98-107 MMOL/L Carbon Dioxide Level 22 21-32 MMOL/L Anion Gap 9 5-14 MMOL/L Blood Urea Nitrogen 13 7-18 MG/DL Creatinine 0.83 0.60-1.30 MG/DL Estimat Glomerular Filtration Rate 70 BUN/Creatinine Ratio 16 Glucose Level 164 H 70-105 MG/DL Calcium Level 10.7 H 8.5-10.1 MG/DL Corrected Calcium 10.9 H 8.5-10.1 MG/DL Magnesium Level 1.9 1.6-2.4 MG/DL Total Bilirubin 0.3 0.1-1.0 MG/DL Aspartate Amino Transf (AST/SGOT) 18 5-34 U/L Alanine Aminotransferase (ALT/SGPT) 28 0-55 U/L Alkaline Phosphatase 71 40-136 U/L Myoglobin 44.5 10.0-92.0 NG/ML Troponin I 0.204 H <0.028 NG/ML Total Protein 6.7 6.4-8.2 GM/DL Albumin 3.8 3.2-4.5 GM/DL My Orders Orders - SUZIE FREDERICK MD Cbc With Automated Diff (04/06/21 14:47) Magnesium (04/06/21 14:47) Chest 1 View, Ap/Pa Only (04/06/21 14:47) Ekg Tracing (04/06/21 14:47) Comprehensive Metabolic Panel (04/06/21 14:47) Myoglobin Serum (04/06/21 14:47) Protime With Inr (04/06/21 14:47) Partial Thromboplastin Time (04/06/21 14:47) Monitor-Rhythm Ecg Trace Only (04/06/21 14:47) Lipid Panel (04/07/21 06:00) Ed Iv/Invasive Line Start (04/06/21 14:47) Troponin I (04/06/21 14:47) Aspirin Chewable Tablet (Baby Aspirin Ch (04/06/21 15:00) Fibrin Degradation Products (04/06/21 15:03) Medications Given in ED Current Medications Medications Dose Ordered Sig/Jessy Route Start Time Stop Time Status Last Admin Dose Admin Aspirin 243 mg ONCE ONCE PO 04/06/21 15:00 04/06/21 15:01 DC 04/06/21 15:05 243 MG Vital Signs/I&O 04/06/21 14:36 Temp 36.6 Pulse 93 Resp 24 B/P (MAP) 160/78 (105) Pulse Ox 100 O2 Delivery Room Air Progress Progress Note : Progress Note Seen and evaluated. IV, labs, EKG and chest x-ray ordered. Patient on monitor. We will evaluate D-dimer as well. May be reactive airway disease but we will check for cardiac and lung etiology. Aspirin 243 mg p.o. to complete 324 mg dosing. Monitor patient. 1559: Troponin was noted to be slightly elevated at 0.204. Patient does have significant family history with heart attacks in her father, brother and multiple blood relation with aunts and uncles. Given this and the concerns for the new elevated troponin, Dr. Chong and I both agree that patient would benefit from early Radiologist Physician for this non-ST elevation PR. Radiologist Physician team activated. Patient will go to the Radiologist Physician. I did discuss this with the patient. She agrees to plan. 1639: Patient will go to Radiologist Physician. Pepcid 20 mg IV ordered for reflux. I did discuss the case with Dr. Mathew, on-call for hospitalist. Patient will eventually end up on his service. There is question of infiltrate in the right base although this may be residual after Covid. White count is not elevated and patient is afebrile. We will check procalcitonin and he will decide if further evaluation for this is needed. Patient likely has reactive lung disease issues currently and may need further evaluation and/or treatment for that. This was discussed with Dr. Mathew as well. Admit, inpatient status for non-ST elevation PR. Initial ECG Impression Date: Apr 06, 2021 Initial ECG Impression Time: 14:53 Initial ECG Rate: 71 Initial ECG Rhythm: Normal Sinus Initial ECG Impression: Normal Comment Sinus rhythm with normal axis. No evidence of ST elevation PR. Similar to previous of 02/23/2020. Interpreted by me. Diagnostic Imaging Diagonstic Imaging: Xray Plain Films/CT/US/NM/MRI: chest Comments [facility], [place] NAME: [facility] REC#: [id number] PT STATUS: REG ER : 1960 PHYSICIAN: SUZIE FREDERICK MD ADMIT DATE: 04/06/21/ER Draft Date of Exam:04/06/21 CHEST 1 VIEW, AP/PA ONLY INDICATION: Chest pain. EXAMINATION: Chest, 04/06/2021. COMPARISON: 01/19/2021. FINDINGS: The heart is unremarkable. Pulmonary vasculature is unremarkable. Questionable mild infiltrate noted at the right lung base with remaining lungs clear. There is no pneumothorax. No effusions. IMPRESSION: 1. Question mild infiltrate at the right lung base. Remaining lungs unremarkable. Dictated on workstation # [id number] Dict: 04/06/21 1554 Trans: 04/06/21 1556 [id number] Interpreted by: MERI PAIZ MD Electronically signed by: Departure Impression Primary Impression: Non-ST elevation PR (NSTEMI) Additional Impression: Reactive airway disease Qualified Codes: J45.41 - Moderate persistent asthma with (acute) exac erbation Disposition: ADMITTED INPATIENT Condition: Stable Admissions Decision to Admit Reason: Admit from ER (General) Decision to Admit/Date: Apr 06, 2021 Time/Decision to Admit Time: 15:59 Departure-Patient Inst. Referrals: REGAN GREGORIO MD (PCP/Family) Primary Care Physician SUZIE FREDERICK MD Apr 06, 2021 14:55
[2021-04-06] MEDS ORDERED: ASPIRIN 81 MG CHEW (CHILDREN'S ASA) PO ONE (15:00)
[2021-04-06 15:26] LABS: ALBUMIN 3.8 GM/DL (3.2-4.5)
[2021-04-06 15:27] LABS: POTASSIUM 3.8 MMOL/L (3.6-5.0)
[2021-04-06 15:28] LABS: BASOPHILS # (AUTO) 0.1 10^3/uL (0.0-0.1); BASOPHILS % (AUTO) 1 % (0-10); CALCIUM 10.7 MG/DL (8.5-10.1); EOSINOPHILS # (AUTO) 0.2 10^3/uL (0.0-0.3); EOSINOPHILS % (AUTO) 3 % (0-10); HEMATOCRIT 38 % (35-52); HEMOGLOBIN 12.7 g/dL (11.5-16.0); LYMPHOCYTES % (AUTO) 39 % (12-44); MEAN CORPUSCULAR HEMOGLOBIN 29 pg (25-34); MEAN CORPUSCULAR HGB CONC 33 g/dL (32-36); MEAN CORPUSCULAR VOLUME 89 fL (80-99); MEAN PLATELET VOLUME 10.9 fL (9.0-12.2); MONOCYTES # (AUTO) 0.7 X 10^3 (0.0-1.0); MONOCYTES % (AUTO) 9 % (0-12); NEUTROPHILS # (AUTO) 3.7 X 10^3 (1.8-7.8); NEUTROPHILS % (AUTO) 48 % (42-75); PLATELET COUNT 284 10^3/uL (130-400); WHITE BLOOD COUNT 7.7 10^3/uL (4.3-11.0)
[2021-04-06 15:29] LABS: TOTAL PROTEIN 6.7 GM/DL (6.4-8.2)
[2021-04-06 15:30] LABS: FIBRIN DEGRADATION PRODUCTS 0.43 UG/ML (0.00-0.49); INR 0.9 (0.8-1.4)
[2021-04-06 15:31] LABS: BILIRUBIN,TOTAL 0.3 MG/DL (0.1-1.0)
[2021-04-06 15:33] LABS: CREATININE SERUM 0.83 MG/DL (0.60-1.30)
[2021-04-06 15:35] LABS: MAGNESIUM 1.9 MG/DL (1.6-2.4)
--- NOTE | 2021-04-06 15:56 | Diagnostic Imaging Report ---
INDICATION: Chest pain. EXAMINATION: Chest, 04/06/2021. COMPARISON: 01/19/2021. FINDINGS: The heart is unremarkable. Pulmonary vasculature is unremarkable. Questionable mild infiltrate noted at the right lung base with remaining lungs clear. There is no pneumothorax. No effusions. IMPRESSION: 1. Question mild infiltrate at the right lung base. Remaining lungs unremarkable. Dictated by: Dictated on workstation # [id number]
[2021-04-06] MEDS ORDERED: HEParin 1000 UNIT/ML (10ML VIAL) FOR BOLUS ONE (16:28)
[2021-04-06] MEDS ORDERED: fentaNYL INJ 100 MCG/2 ML AMP ONE (16:28)
[2021-04-06] MEDS ORDERED: MIDAZOLAM 5 MG/5 ML (VERSED) VIAL ONE (16:28)
[2021-04-06] MEDS ORDERED: LIDOCAINE 1% INJ 20 ML 20 ML VIAL ONE (16:28)
[2021-04-06] MEDS ORDERED: NS IV 1000 ML 3,000 ML ONE (16:28)
[2021-04-06] MEDS ORDERED: FAMOTIDINE 20MG/2ML IV (PEPCID) IV STA (16:34)
--- NOTE | 2021-04-06 16:45 | Consultation-Cardiology ---
HPI-Cardiology Cardiology Consultation: Date of Consultation 04/06/21 Time Seen by a Provider: 16:20 Date of Admission 04-06-21 Attending Physician Makenna Chong MD Facp Fac Ccds Admitting Physician Yamilex Judd MD Consulting Physician Makenna Chong MD Primary Filler Feeder: Dr. Groves HPI: Chief Complaint: NSTEMI Ms. Truong is a 61 yr female who presents to the ED from home with increasing SOB and chest pain which started approx 2 days ago. She reports on the way to the hospital she developed right sides chest pain which radiated across her chest, into her jaws and into her back. She reports it as mod in intensity. She states the discomfort was constant, but intensity would come and go. She reports nausea and sweating at times. No c/o palpitations, syncope or near syncope. No c/o LE swelling at this time. She reports she continues to have chest pain at this time. Review of Systems-Cardiology Review of Systems Constitutional: chills; No fever; malaise Eyes: No vision change Ears/Nose/Throat: No epistaxis, No recent hearing loss, No ulcerations Respiratory: As described under HPI Cardiovascular: As described under HPI Gastrointestinal: No constipation, No diarrhea; nausea; No vomiting Genitourinary: No dysuria, No hematuria Musculoskeletal: no symptoms reported Skin: No rash on exposed areas, No ulcerations on exposed areas Psychiatric/Neurological: anxiety; No depression, No seizure, No focal weakness, No syncope Hematologic: No bleeding abnormalities All Other Systems Reviewed Negative Unless Noted: Yes YHM-Kksrnu-Vprhxh Hx Patient Social History 2nd Hand Smoke Exposure: No Have you traveled recently?: No Alcohol Use?: No Pt feels they are or have been: No Past Medical History PMH As described under Assessment. Family Medical History Family Medical History: She reports her father and brothers had CAD. Family History: CVA 19 MOTHER Esophageal cancer 19 FATHER Allergies and Home Medications Allergies Coded Allergies: cefotaxime (Verified Allergy, Intermediate, HIVES, 10/14/15) Patient Home Medication List Lactobacillus Acidophilus/Pect (Acidophilus-Pectin Capsule) 1 Each Capsule, 2 EACH PO TIDWM Prescribed by: JASE MAGALLANES on 11/05/19 0128 Metoprolol Tartrate (Metoprolol Tartrate) 50 Mg Tablet, 50 MG PO BID Prescribed by: SUZIE FREDERICK on 11/30/192122 Physical Exam-Cardiology Physical Exam Vital Signs/I&O 04/06/21 14:36 Temp 36.6 Pulse 93 Resp 24 B/P (MAP) 160/78 (105) Pulse Ox 100 O2 Delivery Room Air Capillary Refill : Less Than 3 Seconds Constitutional: AAO x 3, well-developed, well-nourished HEENT: PERRL, hearing is well preserved, oral hygience is good Neck: No carotid bruit; carotid pulses are 2 + bilaterally Respiratory: No accessory muscle use, No respiratory distress; chest expansion is symmetric, chest is bilaterally symmetric, lungs clear to auscultation Cardiovascular: regular rate-rhythm; No JVD; S1 and S2 Gastrointestinal: No tender; soft, round Extremities: no lower extremity edema bilateral Neurologic/Psychiatric: grossly intact (moves all extremities) Skin: No rash on exposed areas, No ulcerations on exposed areas Data Review Labs Laboratory Tests 04/06/21 15:03: White Blood Count 7.7, Red Blood Count 4.33, Hemoglobin 12.7, Hematocrit 38, Mean Corpuscular Volume 89, Mean Corpuscular Hemoglobin 29, Mean Corpuscular Hemoglobin Concent 33, Red Cell Distribution Width 14.5, Platelet Count 284, Mean Platelet Volume 10.9, Immature Granulocyte % (Auto) 0, Neutrophils (%) (Auto) 48, Lymphocytes (%) (Auto) 39, Monocytes (%) (Auto) 9, Eosinophils (%) (Auto) 3, Basophils (%) (Auto) 1, Neutrophils # (Auto) 3.7, Lymphocytes # (Auto) 3.0, Monocytes # (Auto) 0.7, Eosinophils # (Auto) 0.2, Basophils # (Auto) 0.1, Immature Granulocyte # (Auto) 0.0, Prothrombin Time 13.0, INR Comment 0.9, Activated Partial Thromboplast Time 27, D-Dimer 0.43, Sodium Level 140, Potassium Level 3.8, Chloride Level 109H, Carbon Dioxide Level 22, Anion Gap 9, Blood Urea Nitrogen 13, Creatinine 0.83, Estimat Glomerular Filtration Rate 70, BUN/Creatinine Ratio 16, Glucose Level 164H, Calcium Level 10.7H, Corrected Calcium 10.9H, Magnesium Level 1.9, Total Bilirubin 0.3, Aspartate Amino Transf (AST/SGOT) 18, Alanine Aminotransferase (ALT/SGPT) 28, Alkaline Phosphatase 71, Myoglobin 44.5, Troponin I 0.204H, Total Protein 6.7, Albumin 3.8 Radiology NAME: YELENA TRUONG [facility] REC#: [id number] PT STATUS: REG ER : 1960 PHYSICIAN: SUZIE FREDERICK MD ADMIT DATE: 04/06/21/ER Draft Date of Exam:04/06/21 CHEST 1 VIEW, AP/PA ONLY INDICATION: Chest pain. EXAMINATION: Chest, 04/06/2021. COMPARISON: 01/19/2021. FINDINGS: The heart is unremarkable. Pulmonary vasculature is unremarkable. Questionable mild infiltrate noted at the right lung base with remaining lungs clear. There is no pneumothorax. No effusions. IMPRESSION: 1. Question mild infiltrate at the right lung base. Remaining lungs unremarkable. Dictated on workstation # [id number] Dict: 04/06/21 1554 Trans: 04/06/21 1556 [id number] Interpreted by: MERI PAIZ MD Electronically signed by: ECG Impression ECG Initial ECG Rhythm: Normal Sinus A/P-Cardiology Assessment/Admission Diagnosis NSTEMI H/o COVID + in October 2019 with long hospital course Echocariogram of 02-24-[address] Winslow showed LVEF 55-65%. PASP 25-30mmHg MPI of 02-24-[address] Winslow was negative for ischemia or infarction Discussion and Recomendations NSTEMI with continuing symptoms Advise emergent cardiac cath. Discussed procedure, risks, benefits and potential complications of cardiac cath with possible ad hoc coronary intervention. She provides informed consent. Clinical Quality Measures AMI/AHF: ASA po Prior to arrival: Yes TI NIETO [facility] Apr 06, 2021 16:45
[2021-04-06] MEDS ORDERED: PATIENT MAY USE OWN MEDS, ALL PO SCH (17:30)
--- NOTE | 2021-04-06 17:43 | Consultation-Cardiology ---
HPI-Cardiology Cardiology Consultation: Date of Consultation 04/06/21 Time Seen by a Provider: 16:40 Date of Admission Attending Physician Dr. Crissy Mathew Admitting Physician Yamilex Judd MD Consulting Physician ALEX SPEARS MD, MA, FACP, FACC, FSCAI, CCDS HPI: Chief Complaint: Reason for Cardiology consultation: Shortness of breath; Chest pain; Elevated troponin HPI Ms. Truong is a 61 yr female who presents to the ED from home with increasing SOB and chest pain which started approx 2 days ago. She reports on the way to the hospital she developed right sides chest pain which radiated across her chest, into her jaws and into her back. She reports it as mod in intensity. She states the discomfort was constant, but intensity would come and go. She reports nausea and sweating at times. No c/o palpitations, syncope or near s yncope. No c/o LE swelling at this time. She reports she continues to have chest pain at this time. Review of Systems-Cardiology Review of Systems Constitutional: chills; No fever; malaise Eyes: No vision change Ears/Nose/Throat: No epistaxis, No recent hearing loss, No ulcerations Respiratory: As described under HPI Cardiovascular: As described under HPI Gastrointestinal: No constipation, No diarrhea; nausea; No vomiting Genitourinary: No dysuria, No hematuria Musculoskeletal: no symptoms reported Skin: No rash on exposed areas, No ulcerations on exposed areas Psychiatric/Neurological: anxiety; No depression, No seizure, No focal weakness, No syncope Hematologic: No bleeding abnormalities All Other Systems Reviewed Negative Unless Noted: Yes IOG-Zfbhpl-Ozkvmh Hx Patient Social History 2nd Hand Smoke Exposure: No Have you traveled recently?: No Alcohol Use?: No Pt feels they are or have been: No Past Medical History PMH As described under Assessment. Family Medical History Family Medical History: She reports her father and brothers had CAD. Family History: CVA 19 MOTHER Esophageal cancer 19 FATHER Allergies and Home Medications Allergies Coded Allergies: cefotaxime (Verified Allergy, Intermediate, HIVES, 10/14/15) Patient Home Medication List Home Medication List Reviewed: Yes Lactobacillus Acidophilus/Pect (Acidophilus-Pectin Capsule) 1 Each Capsule, 2 EACH PO TIDWM Prescribed by: JASE MAGALLANES on 11/05/192124 Metoprolol Tartrate (Metoprolol Tartrate) 50 Mg Tablet, 50 MG PO BID Prescribed by: SUZIE FREDERICK on 11/30/192122 Physical Exam-Cardiology Physical Exam Vital Signs/I&O 04/06/21 14:36 Temp 36.6 Pulse 93 Resp 24 B/P (MAP) 160/78 (105) Pulse Ox 100 O2 Delivery Room Air Capillary Refill : Less Than 3 Seconds Constitutional: AAO x 3, well-developed, well-nourished HEENT: PERRL, hearing is well preserved, oral hygience is good Neck: No carotid bruit; carotid pulses are 2 + bilaterally Respiratory: No accessory muscle use, No respiratory distress; chest expansion is symmetric, chest is bilaterally symmetric, lungs clear to auscultation Cardiovascular: regular rate-rhythm; No JVD; S1 and S2 Gastrointestinal: No tender; soft, round Extremities: no lower extremity edema bilateral Neurologic/Psychiatric: grossly intact (moves all extremities) Skin: No rash on exposed areas, No ulcerations on exposed areas Data Review Labs Laboratory Tests 04/06/21 15:03: White Blood Count 7.7, Red Blood Count 4.33, Hemoglobin 12.7, Hematocrit 38, Mean Corpuscular Volume 89, Mean Corpuscular Hemoglobin 29, Mean Corpuscular Hemoglobin Concent 33, Red Cell Distribution Width 14.5, Platelet Count 284, Mean Platelet Volume 10.9, Immature Granulocyte % (Auto) 0, Neutrophils (%) (A uto) 48, Lymphocytes (%) (Auto) 39, Monocytes (%) (Auto) 9, Eosinophils (%) (Auto) 3, Basophils (%) (Auto) 1, Neutrophils # (Auto) 3.7, Lymphocytes # (Auto) 3.0, Monocytes # (Auto) 0.7, Eosinophils # (Auto) 0.2, Basophils # (Auto) 0.1, Immature Granulocyte # (Auto) 0.0, Prothrombin Time 13.0, INR Comment 0.9, Activated Partial Thromboplast Time 27, D-Dimer 0.43, Sodium Level 140, P otassium Level 3.8, Chloride Level 109H, Carbon Dioxide Level 22, Anion Gap 9, Blood Urea Nitrogen 13, Creatinine 0.83, Estimat Glomerular Filtration Rate 70, BUN/Creatinine Ratio 16, Glucose Level 164H, Calcium Level 10.7H, Corrected Calcium 10.9H, Magnesium Level 1.9, Total Bilirubin 0.3, Aspartate Amino Transf (AST/SGOT) 18, Alanine Aminotransferase (ALT/SGPT) 28, Alkaline Phosphatase 71, Myoglobin 44.5, Troponin I 0.204H, Total Protein 6.7, Albumin 3.8, Procalcitonin 0.01 A/P-Cardiology Assessment/Admission Diagnosis Chest pain and shortness of breath, non-cardiac (based on card cath described below) - Card cath of 04/06/21: no signficant CAD, LVEDP 12 mmHg, LVEF 60% Minimal troponin elevation of undetermined etiology H/o COVID + in October 2019 with long hospital course Echocardiogram of 02-24-[address] Winslow showed LVEF 55-65%. PASP 25-30mmHg Discussion and Recomendations * We proceeded with emergency cardiac cath, given suspicion of acute NSTEMI. Discussed procedure, risks, benefits and potential complications of cardiac cath with possible ad hoc coronary intervention. She provided informed consent. * No CAD or cardiomyopathy found (see under Assessment). I called Dr Mathew and communicated the cath results to him. Discussed also with the patient and her Clinical Quality Measures AMI/AHF: ASA po Prior to arrival: Yes ALEX SPEARS MD FACP FAC CCDS Apr 06, 2021 17:42
--- NOTE | 2021-04-06 18:07 | CARDIAC CATHETERIZATION ---
DATE OF SERVICE: 04/06/2021 CARDIAC CATHETERIZATION REPORT INDICATION FOR PROCEDURE: The patient is a 61-year-old lady with some coronary risk factors, who presented with shortness of breath and chest discomfort. Troponin was found to be mildly elevated. Because of the continuing symptoms, urgent cardiac catheterization was recommended. An informed consent was obtained. DESCRIPTION OF PROCEDURE: She was brought to the cardiac catheterization laboratory. Right groin was prepared and draped in the usual sterile fashion. Lidocaine 1% was used for local anesthesia. Modified Seldinger technique was used to advance a 5-Palauan sheath into the right femoral artery. A 5-Palauan JL4 catheter was used for left coronary angiography, 5-Palauan JR4 catheter was used for right coronary angiography, 5-Palauan pigtail catheter was used for left heart catheterization and left ventricular coronary angiography. Pigtail was then pulled back to the aortic root and aortic root angiography was performed. HEMODYNAMICS: Left ventricular end-diastolic pressure following coronary angiography was 12 mmHg. There was no significant pressure gradient on pullback across the aortic valve. CORONARY ANGIOGRAPHY: Left main coronary artery, left anterior descending artery, left circumflex artery, right coronary artery does not exhibit any angiographically significant disease. Right coronary artery is dominant. LEFT VENTRICULAR ANGIOGRAPHY: Left ventricular angiography was carried out in the right anterior oblique projection. Global left ventricular systolic function was normal. No regional wall motion abnormalities were seen. Left ventricular ejection fraction is approximately 60%. AORTIC ROOT ANGIOGRAPHY: Aortic root angiography did not indicate any significant thoracic aortic aneurysm or dissection. No significant aortic regurgitation is seen. CONCLUSIONS: 1. No angiographically significant coronary artery disease. 2. Normal global left ventricular systolic function with an ejection fraction of 60%. 3. Normal left ventricular end-diastolic pressure. DISCUSSION AND RECOMMENDATIONS: Based on the results of the study, her symptoms do not appear to be of cardiac origin. She continues to remain in the hospital under observation. Job ID: [id number] DocumentID: [id number] Dictated Date: 04/06/2021 17:48:13 Paper Supervisor Date: 04/06/2021 18:05:48 Dictated By: ALEX SPEARS MD, MA, FACP, FACC,
[2021-04-06] MEDS: NS IV 1000 ML 1,000 ML IV SCH (19:29)
[2021-04-06] MEDS ORDERED: PANTOPRAZOLE 40 MG (PROTONIX) TAB PO NR (19:45)
[2021-04-06] MEDS ORDERED: predniSONE 20 MG TAB PO NR (19:45)
[2021-04-06] MEDS: CALCIUM CARBONATE 500 MG (TUMS) TAB.CHEW PO PRN (20:34)
[2021-04-07] MEDS ORDERED: RT-ALBUTEROL/IPRATROPIUM 3 ML (DUONEB) VIAL INH PRN
[2021-04-07 04:00] VITALS: BP 140/84
[2021-04-07 05:17] LABS: BASOPHILS % (AUTO) 0 % (0-10); EOSINOPHILS % (AUTO) 0 % (0-10); HEMATOCRIT 42 % (35-52); HEMOGLOBIN 13.5 g/dL (11.5-16.0); LYMPHOCYTES # (AUTO) 1.4 10^3/uL (1.0-4.0); LYMPHOCYTES % (AUTO) 15 % (12-44); MEAN CORPUSCULAR HEMOGLOBIN 29 pg (25-34); MEAN CORPUSCULAR HGB CONC 32 g/dL (32-36); MEAN CORPUSCULAR VOLUME 89 fL (80-99); MEAN PLATELET VOLUME 10.9 fL (9.0-12.2); MONOCYTES # (AUTO) 0.2 10^3/uL (0.0-1.0); MONOCYTES % (AUTO) 2 % (0-12); NEUTROPHILS # (AUTO) 7.5 10^3/uL (1.8-7.8); NEUTROPHILS % (AUTO) 82 % (42-75); PLATELET COUNT 268 10^3/uL (130-400); WHITE BLOOD COUNT 9.2 10^3/uL (4.3-11.0)
[2021-04-07 05:40] LABS: POTASSIUM 4.3 MMOL/L (3.6-5.0)
[2021-04-07 05:41] LABS: CALCIUM 10.3 MG/DL (8.5-10.1)
[2021-04-07 05:45] LABS: CREATININE SERUM 0.79 MG/DL (0.60-1.30)
[2021-04-07 05:47] LABS: MAGNESIUM 1.9 MG/DL (1.6-2.4)
[2021-04-07 06:01] LABS: TRIGLYCERIDES 82 MG/DL (<150); VLDL CHOLESTEROL 16 MG/DL (5-40)
[2021-04-07 06:06] LABS: CHOLESTEROL 217 MG/DL (< 200)
[2021-04-07 06:07] LABS: HDL CHOLESTEROL 47 MG/DL (40-60)
[2021-04-07] MEDS: NS IV 1000 ML 1,000 ML IV SCH ×2 (06:08→12:54)
[2021-04-07] MEDS: CALCIUM CARBONATE 500 MG (TUMS) TAB.CHEW PO PRN (06:31)
[2021-04-07] MEDS ORDERED: predniSONE 20 MG TAB PO SCH (07:00)
[2021-04-07 07:55] VITALS: BP 134/70
[2021-04-07] MEDS ORDERED: PANTOPRAZOLE 40 MG (PROTONIX) TAB PO SCH (09:00)
--- NOTE | 2021-04-07 09:44 | Progress Note - Cardiology ---
Cardiology SOAP Progress Note Subjective: No cp or palp or syncope or shortness of breath Gen malaise No n/v/d Objective: I&O/Vital Signs 04/06/21 04/07/21 04/07/21 04/07/21 23:41 01:00 04:00 07:00 Temp 37.1 Pulse 81 89 86 98 Resp 16 B/P (MAP) 140/84 (102) Pulse Ox 97 96 O2 Delivery Room Air FiO2 21 04/07/21 04/07/21 04/07/21 07:55 08:22 08:22 Temp 36.5 Pulse 97 Resp 27 B/P (MAP) 134/70 (91) Pulse Ox 95 96 O2 Delivery Room Air Room Air Weight (Pounds): 240 Weight (Ounces): 0.0 Weight (Calculated Kilograms): 108.380312 Groin site without hematoma: Yes Bruising: mild bruising Constitutional: AAO x 3, well-developed, well-nourished Respiratory: No accessory muscle use, No respiratory distress; chest expansion is symmetric, chest is bilaterally symmetric, lungs clear to auscultation Cardiovascular: regular rate-rhythm; No JVD; S1 and S2 Gastrointestional: No tender; soft, round Extremities: no lower extremity edema bilateral Neurologic/Psychiatric: grossly intact (moves all extremities) Skin: No rash on exposed areas, No ulcerations on exposed areas Results/Procedures: Labs Laboratory Tests 04/06/21 15:03: White Blood Count 7.7, Red Blood Count 4.33, Hemoglobin 12.7, Hematocrit 38, Mean Corpuscular Volume 89, Mean Corpuscular Hemoglobin 29, Mean Corpuscular Hemoglobin Concent 33, Red Cell Distribution Width 14.5, Platelet Count 284, Mean Platelet Volume 10.9, Immature Granulocyte % (Auto) 0, Neutrophils (%) (Auto) 48, Lymphocytes (%) (Auto) 39, Monocytes (%) (Auto) 9, Eosinophils (%) (Auto) 3, Basophils (%) (Auto) 1, Neutrophils # (Auto) 3.7, Lymphocytes # (Auto) 3.0, Monocytes # (Auto) 0.7, Eosinophils # (Auto) 0.2, Basophils # (Auto) 0.1, Immature Granulocyte # (Auto) 0.0, Prothrombin Time 13.0, INR Comment 0.9, Activated Partial Thromboplast Time 27, D-Dimer 0.43, Sodium Level 140, Potassium Level 3.8, Chloride Level 109H, Carbon Dioxide Level 22, Anion Gap 9, Blood Urea Nitrogen 13, Creatinine 0.83, Estimat Glomerular Filtration Rate 70, BUN/Creatinine Ratio 16, Glucose Level 164H, Calcium Level 10.7H, Corrected Calcium 10.9H, Magnesium Level 1.9, Total Bilirubin 0.3, Aspartate Amino Transf (AST/SGOT) 18, Alanine Aminotransferase (ALT/SGPT) 28, Alkaline Phosphatase 71, Myoglobin 44.5, Troponin I 0.204H, Total Protein 6.7, Albumin 3.8, Procalcitonin 0.01 04/07/21 04:50: Sodium Level 138, Potassium Level 4.3, Chloride Level 111H, Carbon Dioxide Level 17L, Anion Gap 10, Blood Urea Nitrogen 11, Creatinine 0.79, Estimat Glomerular Filtration Rate 74, BUN/Creatinine Ratio 14, Glucose Level 225H, Calcium Level 10.3H, Magnesium Level 1.9 04/07/21 04:56: White Blood Count 9.2, Red Blood Count 4.71, Hemoglobin 13.5, Hematocrit 42, Mean Corpuscular Volume 89, Mean Corpuscular Hemoglobin 29, Mean Corpuscular Hemoglobin Concent 32, Red Cell Distribution Width 14.2, Platelet Count 268, Mean Platelet Volume 10.9, Immature Granulocyte % (Auto) 0, Neutrophils (%) (Auto) 82H, Lymphocytes (%) (Auto) 15, Monocytes (%) (Auto) 2, Eosinophils (%) (Auto) 0, Basophils (%) (Auto) 0, Neutrophils # (Auto) 7.5, Lymphocytes # (Auto) 1.4, Monocytes # (Auto) 0.2, Eosinophils # (Auto) 0.0, Basophils # (Auto) 0.0, Immature Granulocyte # (Auto) 0.0, Triglycerides Level 82, Cholesterol Level 217H, LDL Cholesterol Direct 177H, VLDL Cholesterol 16, HDL Cholesterol 47 Laboratory Tests 04/06/21 15:03 04/07/21 04:50 04/07/21 04:56 A/P: Assessment: Chest pain and shortness of breath, non-cardiac (based on card cath described below) - Card cath of 04/06/21: no signficant CAD, LVEDP 12 mmHg, LVEF 60% Minimal troponin elevation of undetermined etiology H/o COVID + in October 2019 with long hospital course Echocardiogram of 8-[address] Winslow showed LVEF 55-65%. PASP 25-30mmHg Plan: * Cardiac status stable. Shortness of breath and chest discomfort is noncardiac; Dr Vergara managing * Ok for d/c from cardiac standpoint * F/u with Dr Groves Clinical Quality Measures AMI/AHF: ASA po Prior to arrival: Yes ALEX SPEARS MD FACP FAC CCDS Apr 07, 2021 09:44
[2021-04-07] MEDS ORDERED: CYAN-23 PO (09:46)
[2021-04-07] MEDS ORDERED: DULO30CA49 PO (09:46)
[2021-04-07] MEDS ORDERED: ASPI-1238 PO (09:46)
[2021-04-07] MEDS ORDERED: ZINC50TA58 PO (09:46)
[2021-04-07] MEDS ORDERED: RT-ALBUINH IH (09:46)
[2021-04-07] MEDS ORDERED: METO50TA15 PO (09:46)
[2021-04-07] MEDS ORDERED: LOSA100T57 PO (09:46)
[2021-04-07] MEDS ORDERED: CHOL200074 PO (09:46)
[2021-04-07] MEDS ORDERED: FLUT1DIS26 IH (09:46)
[2021-04-07] MEDS ORDERED: GABA-486 PO (09:46)
[2021-04-07] MEDS ORDERED: AMLO-250 PO (09:46)
[2021-04-07 12:00] VITALS: BP 129/69
[2021-04-07] MEDS ORDERED: PRED10TA22 PO (14:56)
[2021-04-07 15:05] VITALS: BP 135/71
--- NOTE | 2021-04-07 15:08 | Discharge Summary ---
Discharge Summary Hospital Course Problems/Dx: (1) Chest pain Status: Acute (2) Long COVID Status: Acute (3) Reactive airway disease Status: Acute (4) Gallstones Status: Chronic (5) Morbid obesity Status: Chronic Hospital Course Date of Admission: Apr 06, 2021 at 19:20 Admission Diagnosis: Chest pain Family Physician/Provider: Yamilex Gregorio MD Date of Discharge: 04/07/21 Discharge Diagnosis: Non cardiac chest pain, costochondritis, reactive airway disease Hospital Course: Saima Truong is a 61-year-old female who was admitted with chest pain. She had a slightly elevated troponin and underwent a left heart catheterization with cardiology. She did not have any significant coronary artery disease and no intervention was needed. She did have costochondritis and was recommended to take ibuprofen or Tylenol as needed. She was wheezing and was given a course of steroids for reactive airway disease. She should continue her inhalers at home. She is scheduled to follow-up at a Covid clinic in [place] due to her long- haul Covid symptoms. She was discharged home in stable condition. She should follow-up with her primary care physician in about a week. Labs and Pending Lab Test: Laboratory Tests 04/06/21 15:03: White Blood Count 7.7, Red Blood Count 4.33, Hemoglobin 12.7, Hematocrit 38, Mean Corpuscular Volume 89, Mean Corpuscular Hemoglobin 29, Mean Corpuscular Hemoglobin Concent 33, Red Cell Distribution Width 14.5, Platelet Count 284, Mean Platelet Volume 10.9, Immature Granulocyte % (Auto) 0, Neutrophils (%) (Auto) 48, Lymphocytes (%) (Auto) 39, Monocytes (%) (Auto) 9, Eosinophils (%) (Auto) 3, Basophils (%) (Auto) 1, Neutrophils # (Auto) 3.7, Lymphocytes # (Auto) 3.0, Monocytes # (Auto) 0.7, Eosinophils # (Auto) 0.2, Basophils # (Auto) 0.1, Immature Granulocyte # (Auto) 0.0, Prothrombin Time 13.0, INR Comment 0.9, Activated Partial Thromboplast Time 27, D-Dimer 0.43, Sodium Level 140, Potassium Level 3.8, Chloride Level 109H, Carbon Dioxide Level 22, Anion Gap 9, Blood Urea Nitrogen 13, Creatinine 0.83, Estimat Glomerular Filtration Rate 70, BUN/Creatinine Ratio 16, Glucose Level 164H, Calcium Level 10.7H, Corrected Calcium 10.9H, Magnesium Level 1.9, Total Bilirubin 0.3, Aspartate Amino Transf (AST/SGOT) 18, Alanine Aminotransferase (ALT/SGPT) 28, Alkaline Phosphatase 71, Myoglobin 44.5, Troponin I 0.204H, Total Protein 6.7, Albumin 3.8, Procalcitonin 0.01 04/07/21 04:50: Sodium Level 138, Potassium Level 4.3, Chloride Level 111H, Carbon Dioxide Level 17L, Anion Gap 10, Blood Urea Nitrogen 11, Creatinine 0.79, Estimat Glomerular Filtration Rate 74, BUN/Creatinine Ratio 14, Glucose Level 225H, Calcium Level 10.3H, Magnesium Level 1.9 04/07/21 04:56: White Blood Count 9.2, Red Blood Count 4.71, Hemoglobin 13.5, Hematocrit 42, Mean Corpuscular Volume 89, Mean Corpuscular Hemoglobin 29, Mean Corpuscular Hemoglobin Concent 32, Red Cell Distribution Width 14.2, Platelet Count 268, Mean Platelet Volume 10.9, Immature Granulocyte % (Auto) 0, Neutrophils (%) (Auto) 82H, Lymphocytes (%) (Auto) 15, Monocytes (%) (Auto) 2, Eosinophils (%) (Auto) 0, Basophils (%) (Auto) 0, Neutrophils # (Auto) 7.5, Lymphocytes # (Auto) 1.4, Monocytes # (Auto) 0.2, Eosinophils # (Auto) 0.0, Basophils # (Auto) 0.0, Immature Granulocyte # (Auto) 0.0, Triglycerides Level 82, Cholesterol Level 217H, LDL Cholesterol Direct 177H, VLDL Cholesterol 16, HDL Cholesterol 47 Home Meds Active Prednisone 10 Mg Tab.ds.pk 10 Mg PO DAILY Take 6 tabs(60mg)daily,decrease by 1 tab(10MG)daily. Reported Vitamin D3 (Cholecalciferol (Vitamin D3)) 50 Mcg Capsule 50 Mcg PO DAILY Vitamin B-12 (Cyanocobalamin (Vitamin B-12)) 1,000 Mcg Capsule 1,000 Mcg PO DAILY Zinc 50 Mg Tablet 50 Mg PO DAILY Aspirin EC (Aspirin) 81 Mg Tablet.dr 81 Mg PO DAILY Proair Hfa (Albuterol Sulfate) 1 Puff Puff 2 Puff IH Q4H PRN Advair 250-50 Diskus (Fluticasone/Salmeterol) 1 Each Blst.w.dev 1 Each IH BID Metoprolol Tartrate 50 Mg Tablet 50 Mg PO BID Losartan Potassium 100 Mg Tablet 100 Mg PO DAILY Duloxetine HCl 30 Mg Capsule.dr 30 Mg PO BID Gabapentin 100 Mg Capsule 100 Mg PO HS Amlodipine Besylate 5 Mg Tablet 5 Mg PO DAILY Assessment/Pt Instructions Take medications as prescribed. Complete your steroid taper. Follow-up with your primary care physician. Follow-up in the Covid clinic. Return with worsening chest pain, shortness of breath, or if you feel like you are getting worse. Discharge Planning: <30 minutes discharge planning Discharge Instructions Discharge Diet: No Restrictions Activity as Tolerated: Yes ( ) Discharge Physical Examination Vital Signs Vital Signs Date Time Temp Pulse Resp B/P (MAP) Pulse Ox O2 Delivery O2 Flow Rate FiO2 04/07/21 13:00 91 04/07/21 12:00 37.6 28 129/69 (89) 93 Room Air 04/06/21 23:41 21 Allergies: Coded Allergies: cefotaxime (Verified Allergy, Intermediate, HIVES, 10/14/15) Copy Copies To 1: YAMILEX GREGORIO MD Discharge Summary Date of Admission Apr 06, 2021 at 19:20 Date of Discharge Discharge Date: Apr 07, 2021 Discharge Time: 15:06 Admission Diagnosis Chest pain Consults/Procedures Consulations Cardiology Procedures Left heart catheterization Discharge Diagnosis (1) Chest pain Status: Acute (2) Long COVID Status: Acute (3) Reactive airway disease Status: Acute (4) Gallstones Status: Chronic (5) Morbid obesity Status: Chronic Clinical Quality Measures AMI/AHF: ASA po Prior to arrival: Yes LISANDRA TORRES MD Apr 07, 2021 15:06
== END 2021-04-07 15:31 | disposition home or self-care (01) | DRG 206 ==
LOC: EDUNIT# 14:16 → ER 14:18 → CATH 16:16 → CSD 19:20
PROVIDERS: ADMIT Internal Medicine Cardiovascular Disease; ATTEND Internal Medicine Cardiovascular Disease
PROC: 4A023N7 Measurement of Cardiac Sampling and Pressure, Left Heart, Percutaneous Approach (ICD-10-PCS; principal; 2021-04-06)
PROC: B2111ZZ Fluoroscopy of Multiple Coronary Arteries using Low Osmolar Contrast (ICD-10-PCS; 2021-04-06)
PROC: B2151ZZ Fluoroscopy of Left Heart using Low Osmolar Contrast (ICD-10-PCS; 2021-04-06)
PROC: B3101ZZ Fluoroscopy of Thoracic Aorta using Low Osmolar Contrast (ICD-10-PCS; 2021-04-06)
DX: M94.0 Chondrocostal junction syndrome [Tietze] (principal); Z68.42 Body mass index [BMI] 45.0-49.9, adult; Z86.16 Personal history of COVID-19; K80.80 Other cholelithiasis without obstruction; E66.01 Morbid (severe) obesity due to excess calories; R77.8 Other specified abnormalities of plasma proteins; I10 Essential (primary) hypertension; K21.9 Gastro-esophageal reflux disease without esophagitis; J45.909 Unspecified asthma, uncomplicated; Z88.1 Allergy status to other antibiotic agents; Z82.49 Family history of ischemic heart disease and other diseases of the circulatory system
CPT/HCPCS: 36415; 71045; 80048; 80053; 80061; 83735; 83874; 84145; 84484; 85025; 85379; 85610; 85730; 93005; 93041; 93458; 93567

== ENCOUNTER → 2021-08-16 | Outpatient (CLI) | payer BC ==
[~2021-08-16] MED LIST changes: +AMLO-250 PO; +ASPI-1238 PO; +CHOL200074 PO; +CYAN-23 PO; +DULO30CA49 PO; +FLUT1DIS26 IH; +GABA-486 PO; +LOSA100T57 PO; +PRED10TA22 PO; +RT-ALBUINH IH; +ZINC50TA58 PO
--- NOTE | 2021-08-16 16:01 | Diagnostic Imaging Report ---
INDICATION: Cough and shortness of air. TIME OF EXAM: 2:39 PM. COMPARISON: Correlation is made with the prior chest from 01/02/2021. FINDINGS: The heart size is normal. The pulmonary vascularity is unremarkable. The lungs are clear. No infiltrate, effusion, or pneumothorax is detected. IMPRESSION: No acute cardiopulmonary process is detected. Dictated by: Dictated on workstation # [id number]
== END ==
LOC: RAD 13:57
PROVIDERS: ATTEND Internal Medicine
DX: R05.9 Cough, unspecified (principal); R06.02 Shortness of breath
CPT/HCPCS: 71046

== ENCOUNTER 2021-12-30 10:27 | Emergency (ER) | payer OTHER, BC ==
[~2021-12-30] VITALS: Ht 157.5 cm; Wt 111.0 kg
--- NOTE | 2021-12-30 12:11 | ED Lower Extremity ---
General Chief Complaint: Lower Extremity Stated Complaint: L LEG RED,PAIN,WARM TO TOUCH Nursing Triage Note: PT AMB TO TRIAGE WITH COMPLAINT OF LEFT KNEE PAIN, SWELLING, AND REDNESS. STATES SHE FELL ABOUT TEN DAYS AGO AT WORK. STATES HAD XRAY, NO BROKEN BONES. 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 She states on December 20 she had a fall at work and landed on her left knee. She was seen at the occupational medicine clinic twice and they have referred her to an orthopedist. She states that over the last couple days her pain seemed to be worsening and she now has noticed some redness and warmth to the anterior lower leg. She does have quite a bit of pain with ambulation and she has been icing her leg as directed. Severity: moderate Pain/Injury Location: left leg, left knee Method of Injury: fell Allergies and Home Medications Allergies Coded Allergies: cefotaxime (Verified Allergy, Intermediate, HIVES, 10/14/15) Patient Home Medication List Home Medication List Reviewed: Yes Albuterol Sulfate (Proair Hfa) 1 Puff Puff, 2 PUFF IH Q4H PRN for SHORTNESS OF BREATH, (Reported) Entered as Reported by: ROSMERY BROWN on 04/07/21945 Amlodipine Besylate (Amlodipine Besylate) 5 Mg Tablet, 5 MG PO DAILY, (Reported) Entered as Reported by: ROSMERY BROWN on 04/07/21945 Aspirin (Aspirin EC) 81 Mg Tablet., 81 MG PO DAILY, (Reported) Entered as Reported by: ROSMERY BROWN on 04/07/21945 Cholecalciferol (Vitamin D3) (Vitamin D3) 50 Mcg Capsule, 50 MCG PO DAILY, (Reported) Entered as Reported by: ROSMERY BROWN on 04/07/21945 Cyanocobalamin (Vitamin B-12) (Vitamin B-12) 1,000 Mcg Capsule, 1,000 MCG PO DAILY, (Reported) Entered as Reported by: ROSMERY BROWN on 04/07/21945 Duloxetine HCl (Duloxetine HCl) 30 Mg Capsule.dr, 30 MG PO BID, (Reported) Entered as Reported by: ROSMERY BROWN on 04/07/21945 Fluticasone/Salmeterol (Advair 250-50 Diskus) 1 Each Blst.w.dev, 1 EACH IH BID, (Reported) Entered as Reported by: ROSMERY BROWN on 04/07/21945 Gabapentin (Gabapentin) 100 Mg Capsule, 100 MG PO HS, (Reported) Entered as Reported by: ROSMERY BROWN on 04/07/21945 Losartan Potassium (Losartan Potassium) 100 Mg Tablet, 100 MG PO DAILY, (Reported) Entered as Reported by: ROSMERY BROWN on 04/07/21945 Metoprolol Tartrate (Metoprolol Tartrate) 50 Mg Tablet, 50 MG PO BID, (Reported) Entered as Reported by: ROSMERY BROWN on 04/07/21945 Prednisone (Prednisone) 10 Mg Tab.ds.pk, 10 MG PO DAILY Prescribed by: LISANDRA TORRES on 04/07/211455 Zinc (Zinc) 50 Mg Tablet, 50 MG PO DAILY, (Reported) Entered as Reported by: ROSMERY BROWN on 04/07/21945 Review of Systems Constitutional: no symptoms reported EENTM: no symptoms reported Respiratory: no symptoms reported Cardiovascular: no symptoms reported Genitourinary: no symptoms reported Musculoskeletal: other (Left knee and lower leg pain with redness and swelling/hyperthermia) Skin: change in color Past Dydghns-Xikbcb-Bjxxmt Hx Patient Social History Tobacco Use?: No Use of E-Cig and/or Vaping dev: No Substance use?: No Alcohol Use?: No Pt feels they are or have been: No Immunizations Up To Date PED Vaccines UTD: Yes First/Initial COVID19 Vaccinat: 09/25 Second COVID19 Vaccination Kaz: 10/26 Third COVID19 Vaccination Date: 09/25 Seasonal Allergies Seasonal Allergies: Yes Past Medical History Surgery/Hospitalization HX: C-SEC Surgeries: Yes (REMOVED SCAR TISSUE) Section Respiratory: Yes (RECENT INTUBATION.) Cardiac: No Neurological: No Female Reproductive Disorders: Denies Sexually Transmitted Disease: No HIV/AIDS: No Genitourinary: No Gastrointestinal: No Musculoskeletal: No Endocrine: No HEENT: No Cancer: No Psychosocial: No Integumentary: No Blood Disorders: No Adverse Reaction/Blood Tranf: No Family Medical History CVA 19 MOTHER Esophageal cancer 19 FATHER Physical Exam Vital Signs Vital Signs - First Documented 12/30/21 11:11 Pulse 95 Resp 16 B/P (MAP) 154/104 (121) Pulse Ox 94 O2 Delivery Room Air Capillary Refill : Less Than 3 Seconds Height, Weight, BMI Height: 5'2.00" Weight: 240lbs. 0.0oz. 108.489649qx; 44.00 BMI Method: General Appearance: WD/WN, no apparent distress HEENT: PERRL/EOMI Neck: non-tender Cardiovascular: regular rate, rhythm Respiratory: chest non-tender Gastrointestinal: non tender Knees: left knee ecchymosis, left knee soft tissue tenderness, left knee other (Old ecchymosis throughout the left anterior knee. There is moderate erythema and hyperthermia to the mid left anterior lower leg. 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 Patient does have some old ecchymosis throughout the knee and lower leg and there is some erythema and hyperthermia to the anterior lower leg. She may be developing a secondary cellulitis, which we will start her on Keflex for. I r ecommended close follow-up with the orthopedist as planned. Impression Primary Impression: Left leg pain Additional Impression: Cellulitis Disposition: HOME, SELF-CARE Condition: Stable Departure-Patient Inst. Decision time for Depature: 13:11 Referrals: REGAN GREGORIO MD (PCP/Family) Primary Care Physician Patient Instructions: Cellulitis and Erysipelas (Skin Infections) Add. Discharge Instructions: Please keep your appointment with the orthopedist as planned. You MUST follow-up with the work restrictions given to you by the occupational medicine provider. If there is not light duty available to follow these restrictions then you need to be off work until you are cleared by the occupational medicine team. Additionally, I would like you to continue to follow-up with the occupational medicine provider. Return to the emergency room with any severe changes or worsening of your symptoms. All discharge instructions reviewed with patient and/or family. Voiced understanding. Scripts Doxycycline Hyclate (Doxycycline Hyclate) 100 Mg Tablet 100 MG PO BID for 10 Days, #20 TAB Prov: EDEN KWOK 12/30/21 Work/School Note: Work Release Form Date Seen in the Emergency Department: Dec 30, 2021 Restrictions: Follow Up With [facility] EDEN KWOK Dec 30, 2021 12:11
[2021-12-30] MEDS ORDERED: DOXY100T2 PO (13:19)
--- NOTE | 2021-12-30 13:26 | Diagnostic Imaging Report ---
PROCEDURE: US left lower extremity venous. TECHNIQUE: Multiple Real-time grayscale images were obtained over the left lower extremity in various projections. Additional duplex Doppler and color Doppler images were also obtained. INDICATION: Left lower extremity redness and pain. Evaluate for deep venous thrombosis. FINDINGS: There is normal compression, flow, and augmentation demonstrated from the common femoral vein through the popliteal vein. The greater saphenous junction appears patent. The visualized calf veins are patent. IMPRESSION: No sonographic evidence of left lower extremity deep venous thrombosis. Dictated by: Dictated on workstation # [id number]
[2021-12-30 13:32] VITALS: BP 145/98
== END 2021-12-30 13:32 | disposition home or self-care (01) ==
LOC: EDUNIT# 10:27 → ER 10:30
DX: M79.605 Pain in left leg (principal); L03.116 Cellulitis of left lower limb

== ENCOUNTER → 2022-12-14 | Outpatient (CLI) | payer BC ==
[~2022-12-14] MED LIST changes: +ALBU8.5H6 IH; +DOXY100T2 PO; -LOSA100T57 PO; +LOSA100T58 PO; -RT-ALBUINH IH
== END ==
LOC: CARD 07:55
PROVIDERS: ATTEND Physician Assistant
DX: I10 Essential (primary) hypertension (principal)
CPT/HCPCS: 93306